=== PATIENT | female | born 1985 | race Caucasian/White ===

== ENCOUNTER → 2016-11-19 | Outpatient (CLI) | payer OTHER ==
[2016-11-19 12:32] LABS: Basophils % (A) 0 %; CH 31.8; CHCM 33.6; Eosinophils # (A) 0.1 k/uL (0-0.7); Eosinophils % (A) 1 %; HCT 41.3 % (34.0-46.0); HDW 2.21; HGB 13.6 gm/dL (11.4-16.0); Luc # (Auto) 0.06; Luc % (Auto) 2; Lymphocytes # (A) 1.6 k/uL (1.0-4.8); Lymphocytes % (A) 40 %; MCH 31.4 pg (25.0-35.0); MCV 95.1 fL (80.0-100.0); Mean Platelet Volume 7.4; Monocytes # (A) 0.3 k/uL (0-1.0); Monocytes % (A) 7 %; Neutrophils % (A) 50 %; RBC 4.34 m/uL (3.80-5.40); RDW 11.7 % (11.5-15.5); WBC (Perox) 4.14
[2016-11-19 13:01] LABS: ALT 41 U/L (9-52); AST 21 U/L (14-36); Alkaline Phosphatase 62 U/L (38-126); Anion Gap 10 mmol/L; Blood Urea Nitrogen 20 mg/dL (7-17); Calcium 9.3 mg/dL (8.4-10.2); Carbamazepine (Tegretol) 10.8 ug/mL; Carbon Dioxide 30 mmol/L (22-30); Chloride 103 mmol/L (98-107); Cholesterol 210 mg/dL (<200); Glucose 95 mg/dL (74-99); HDL Cholesterol 101 mg/dL (40-60); Non-African American GFR(MDRD) >60 (>60 ml/min/1.73 sqM); Potassium 4.2 mmol/L (3.5-5.1); Sodium 143 mmol/L (137-145); Total Bilirubin 0.4 mg/dL (0.2-1.3); Total Protein 7.4 g/dL (6.3-8.2); Triglycerides 87 mg/dL (<150)
== END | disposition home or self-care (01) ==
LOC: LABWHC1 11:42
PROVIDERS: ATTEND Psychiatry & Neurology Neurology
DX: G40.209 Localization-related (focal) (partial) symptomatic epilepsy and epileptic syndromes with complex partial seizures, not intractable, without status epilepticus (principal); R94.6 Abnormal results of thyroid function studies
CPT/HCPCS: 36415; 80053; 80061; 80156; 80164; 80175; 84439; 84443; 84481; 85025; 86376; 86800

== ENCOUNTER 2017-03-19 10:45 | Emergency (ER) | payer OTHER ==
[2017-03-19 11:07] VITALS: BP 113/71; PULSE 99; RESP 16
--- NOTE | 2017-03-19 11:34 | XR ---
EXAMINATION TYPE: XR nasal bone DATE OF EXAM: 03/19/2017 11:27 AM CLINICAL HISTORY: pain TECHNIQUE: 3 views of the nasal bones are submitted. FINDINGS: Three views of the nasal bones fail to demonstrate evidence for displaced or depressed nasal bone fra cture. Paranasal sinuses are well-aerated. IMPRESSION: No evidence for displaced or depressed nasal bone fracture. ICD 10 NO FRACTURE, INITIAL EVALUATION
[2017-03-19] MEDS ORDERED: TOPICAL SKIN ADHESIVE 1 EACH AMP TOPICAL ONE (12:07)
--- NOTE | 2017-03-19 12:15 | ED ---
Fall HPI - General Chief Complaint: Fall Stated Complaint: Fall-Face Injury Time Seen by Provider: 03/19/17 12:02 Source: patient, RN notes reviewed Mode of arrival: ambulatory Limitations: no limitations - History of Present Illness Initial Comments: 31-year-old female presents emergency Department chief complaint facial injury. 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 Patient tripped and fell hitting her face on the ground. She has some superficial lacerations to her nose, epistaxis. Patient denies any headache, dizziness or any loss conscious. Patient's tetanus is up-to-date within last 5 years. Denies any wrist pain, lower extremity injury. - Related Data Home Medications Medication Instructions Recorded Confirmed Atomoxetine HCl [Strattera] 80 mg PO QAM 11/16/14 12/02/14 Divalproex [Depakote] 250 mg PO BID 11/16/14 12/02/14 Folic Acid 1 mg PO DAILY 11/16/14 12/02/14 Naltrexone HCl [Revia] 50 mg PO BID 11/16/14 12/02/14 carBAMazepine CHEW [TEGretol Chew] 100 mg PO 11/16/14 12/02/14 carBAMazepine [TEGretol] 200 mg PO 1200 11/16/14 12/02/14 carBAMazepine [TEGretol] 200 mg PO AC-BRKFST 11/16/14 12/02/14 cloNIDine HCL [Catapres] 0.05 mg PO 1200 11/16/14 12/02/14 cloNIDine HCL [Catapres] 0.05 mg PO 11/16/14 12/02/14 fluvoxaMINE MALEATE [Luvox] 100 mg PO 11/16/14 12/02/14 fluvoxaMINE MALEATE [Luvox] 200 mg PO QAM 11/16/14 12/02/14 lamoTRIgine [LaMICtal] 25 mg PO 1200 11/16/14 12/02/14 lamoTRIgine [LaMICtal] 100 mg PO 11/16/14 12/02/14 lamoTRIgine [LaMICtal] 100 mg PO QAM 11/16/14 12/02/14 Previous Rx's Medication Instructions Recorded HYDROcodone/APAP 7.5-325MG [[place] 1 each PO Q4H PRN #60 tab 12/02/14 7.5] Allergies Allergy/AdvReac Type Severity Reaction Status Date / Time cephalexin monohydrate Allergy Rash/Hives Verified 03/19/17 11:06 [From Keflex] codeine Allergy SEVERE Verified 03/19/17 11:06 HEADACHE,NAUSEA iodine Allergy blisters Verified 03/19/17 11:06 Penicillins Allergy Rash/Hives Verified 03/19/17 11:06 Review of Systems ROS Statement: Those systems with pertinent positive or pertinent negative responses have been documented in the HPI. ROS Other: All systems not noted in ROS Statement are negative. 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,CURRENTLY UNDERGOING SLEEP STUDY TESTING, NO MENSES GREATER THAN 2 YRS POST UTERINE ABLATION History of Any Multi-Drug Resistant Organisms: None Reported Past Surgical History: Orthopedic Surgery, Uterine Ablation Additional Past Surgical History / Comment(s): DEBI FUNDOPLASTY, MULT ORTHOPEDIC SURGERIES,RT HAND AND WRIST SURGERY,PLATE RT WRIST, RT POST TIBIAL TENDON TRANSFER Past Anesthesia/Blood Transfusion Reactions: No Reported Reaction Past Psychological History: Anxiety, Depression Additional Psychological History / Comment(s): OCD-PICKS AT SKIN Smoking Status: Never smoker Past Alcohol Use History: None Reported Past Drug Use History: None Reported - Past Family History Mother Additional Family Medical History / Comment(s): BASAL CELL SKIN CA General Exam Limitations: no limitations General appearance: alert, in no apparent distress Head exam: Present: atraumatic, normocephalic, normal inspection Eye exam: Present: normal appearance, PERRL, EOMI. Absent: scleral icterus, conjunctival injection, periorbital swelling ENT exam: Present: normal oropharynx, mucous membranes moist, TM's normal bilaterally, normal external ear exam, other (Dry blood noted in the nares, superficial laceration 3 - 0.5 cm on the nose). Absent: normal exam Neck exam: Present: normal inspection, full ROM. Absent: tenderness, meningismus, lymphadenopathy Respiratory exam: Present: normal lung sounds bilaterally. Absent: respiratory distress, wheezes, rales, rhonchi, stridor Cardiovascular Exam: Present: regular rate, normal rhythm, normal heart sounds. Absent: systolic murmur, diastolic murmur, rubs, gallop, clicks Extremities exam: Present: normal inspection, full ROM, normal capillary refill. Absent: tenderness, pedal edema, joint swelling, calf tenderness Neurological exam: Present: alert, oriented X3, CN II-XII intact, reflexes normal. Absent: motor sensory deficit Course Vital Signs 03/19/17 11:01 Pulse Rate 99 Respiratory 16 Rate Blood Pressure 113/71 O2 Sat by Pulse 100 Oximetry Procedures - Laceration Laceration #1 Consent Obtained: verbal consent Indication: laceration Site: other (Nose) Size (cm): 0 (0.5) Description: flap Depth: simple, single layer Pre-repair: wound explored, irrigated extensively, deep structures intact Size of Sutures: other Technique: other (Dermabond) Medical Decision Making - Medical Decision Making 31-year-old female presented for fall facial injury. Patient's wounds were cleaned, closed with Dermabond. Patient had no severe head injury x-ray of the nasal bone show no acute fracture. Patient be discharged at this time return parameters were discussed. Disposition Clinical Impression: Fall, Epistaxis, Laceration of nose Disposition: HOME SELF-CARE Condition: Stable Instructions: Nasal Contusion (ED), Skin Adhesive Care (ED) Additional Instructions: Please return to the Emergency Department if symptoms worsen or any other concerns. Referrals: Pietro Sparks III, MD [Primary Care Provider] - 1-2 days Time of Disposition: 12:14
== END 2017-03-19 12:29 | disposition home or self-care (01) ==
LOC: EC 10:45
DX: S01.21XA Laceration without foreign body of nose, initial encounter (principal); R04.0 Epistaxis; G40.909 Epilepsy, unspecified, not intractable, without status epilepticus; F32.9 Major depressive disorder, single episode, unspecified; Z79.899 Other long term (current) drug therapy; Z88.0 Allergy status to penicillin; Z88.1 Allergy status to other antibiotic agents; Z88.5 Allergy status to narcotic agent; Z91.048 Other nonmedicinal substance allergy status; W01.0XXA Fall on same level from slipping, tripping and stumbling without subsequent striking against object, initial encounter; Y92.480 Sidewalk as the place of occurrence of the external cause; Y93.01 Activity, walking, marching and hiking
CPT/HCPCS: 12011; 70160; 99284

== ENCOUNTER → 2019-07-08 | Outpatient (CLI) | payer OTHER ==
--- NOTE | 2019-07-08 15:45 | US ---
EXAMINATION TYPE: US carotid duplex BILAT DATE OF EXAM: 07/08/2019 COMPARISON: NONE CLINICAL HISTORY: R42 DIZZINESS. EXAM MEASUREMENTS: RIGHT: Peak Systolic Velocity (PSV) cm/sec ----- Right CCA: 99.2 ----- Right ICA: 96.8 ----- Right ECA: 99.2 ICA/CCA ratio: 1.0 RIGHT: End Diastole cm/sec ----- Right CCA: 35.6 ----- Right ICA: 35.4 ----- Right ECA: 35.4 LEFT: Peak Systolic Velocity (PSV) cm/sec ----- Left CCA: 113.5 ----- Left ICA: 81.7 ----- Left ECA: 124.5 ICA/CCA ratio: 0.7 LEFT: End Diastole cm/sec ----- Left CCA: 33.2 ----- Left ICA: 81.7 ----- Left ECA: 124.5 VERTEBRALS (direction of flow): Right Vertebral: Antegrade Left Vertebral: Antegrade Rhythm: Normal Minimal plaque, no significant velocity elevations. IMPRESSION: Mild degree of grayscale atheromatous plaquing with no sonographically evident hemodynam ically significant stenosis within either visualized carotid arterial system. Criteria for Assigning % of Stenosis / Diameter reduction (Estimation based on the indirect measurements of the internal carotid artery velocities (ICA PSV). 1. Normal (no stenosis)=ICA PSV < 125 cm/s: ratio < 2.0: ICA EDV<40 cm/s. 2. Less than 50% stenosis=ICA PSV < 125 cm/s: ratio < 2.0: ICA EDV<40 cm/s. 3. 50 to 69% stenosis=ICA PSV of 125 to 230 cm/s: ration 2.0 ? 4.0: ICA EDV 40-100 cm/s. 4. Greater than 70% stenosis to near occlusion= ICA PSV > 230 cm/s: ratio > 4.0: ICA EDV > 100 cm/s. 5. Near occlusion= ICA PSV velocities may be low or undetectable: variable ratio and ICA EDV. 6. Total occlusion=unable to detect flow.
== END | disposition home or self-care (01) ==
LOC: RADUSWWP 14:54 → EEVIPCON 15:00
PROVIDERS: ATTEND Psychiatry & Neurology Neurology
DX: I65.29 Occlusion and stenosis of unspecified carotid artery (principal)
CPT/HCPCS: 93880

== ENCOUNTER → 2019-08-19 | Outpatient (CLI) | payer OTHER ==
--- NOTE | 2019-08-20 09:08 | MM ---
Reason for exam: screening (asymptomatic). Baseline mammogram. History: Patient is nulliparous. Took hormonal contraceptives beginning at age 15. Physical Findings: Nurse Summary: 0.5-1cm nodule in the right breast at 10 o'clock and a 0.5-1cm nodule in the left breast at 2 o'clock (nurse kp). MG 3D Diag Mammo W/Cad WARD Bilateral CC and MLO view(s) were taken. The breast tissue is extremely dense which could obscure a lesion on mammography. There are benign appearing round calcifications bilaterally. There is no discrete abnormality. These results were verbally communicated with the patient and result sheet given to the patient on 08/19/19. ASSESSMENT: Incomplete: need additional imaging evaluation, BI-RAD 0 RECOMMENDATION: Ultrasound of both breasts. (palpables)
--- NOTE | 2019-08-20 09:10 | USB ---
Reason for exam: additional evaluation requested from abnormal screening. History: Patient is nulliparous. Took hormonal contraceptives beginning at age 15. Physical Findings: Breast exam preformed at baseline screening. US Breast Limited BILAT Left limited breast ultrasound including focal area of concern, retroareolar and axilla demonstrates no cystic or solid lesion seen. Right limited breast ultrasound including focal area of concern, retroareolar and axilla demonstrates a 9 x 3 x 7mm oval, cystic lesion at 9 o'clock, elongated cyst, a 14 x 8 x 12mm lobular, cystic lesion at 10 o'clock BB, lobular cyst and a 7 x 3 x 7mm oval, cystic lesion at 12 o'clock, elongated cyst. These results were verbally communicated with the patient and result sheet given to the patient on 08/19/19. ASSESSMENT: Benign, BI-RAD 2 RECOMMENDATION: Routine screening mammogram of both breasts at age 39. Manage on a clinical basis with regard to bilateral palpables.
== END | disposition home or self-care (01) ==
LOC: RADMAMWWP 13:25
PROVIDERS: ATTEND Family Medicine
DX: R92.8 Other abnormal and inconclusive findings on diagnostic imaging of breast (principal)
CPT/HCPCS: 77066; 76642; G0279; 77062

== ENCOUNTER 2019-09-29 15:09 | Emergency (ER) | payer OTHER ==
[2019-09-29 15:13] VITALS: TEMP 98.2
[2019-09-29] MEDS ORDERED: SODIUM CHLORIDE 0.9% 1,000 ML IV STA (15:47)
[2019-09-29] MEDS ORDERED: ACETAMINOPHEN TAB 500 MG TAB PO STA (15:47)
[2019-09-29] MEDS ORDERED: METOCLOPRAMIDE 5 MG/ML 2 ML VIAL IVP STA (15:48)
[2019-09-29] MEDS ORDERED: diphenhydrAMINE 50 MG/ML 1 ML VIAL IVP STA (15:48)
[2019-09-29] MEDS ORDERED: ONDANSETRON 4 MG/2 ML VIAL IVP STA (15:49)
--- NOTE | 2019-09-29 16:14 | ED ---
Headache HPI - General Chief Complaint: Headache Stated Complaint: Migraine, off balance Time Seen by Provider: 09/29/19 15:32 Source: RN notes reviewed, old records reviewed Mode of arrival: wheelchair Limitations: no limitations - History of Present Illness Initial Comments: Patient is a 34-year-old female with 3 days of headache. She reports it seems to be a cluster like migraine where it is a sharp wave of pain and then will diminish. She reports his been recurrent for the past 3 days. Patient's mother reports that she's also been having some word disassociation and trouble with recall and conversations. 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 Patient has been having history of headaches for the past few months, and have scheduled follow up with headache clinic soon. - Related Data Home Medications Medication Instructions Recorded Confirmed Atomoxetine HCl [Strattera] 80 mg PO QAM 11/16/14 12/02/14 Divalproex [Depakote] 250 mg PO BID 11/16/14 12/02/14 Folic Acid 1 mg PO DAILY 11/16/14 12/02/14 Naltrexone HCl [Revia] 50 mg PO BID 11/16/14 12/02/14 carBAMazepine CHEW [TEGretol Chew] 100 mg PO HS 11/16/14 12/02/14 carBAMazepine [TEGretol] 200 mg PO 1200 11/16/14 12/02/14 carBAMazepine [TEGretol] 200 mg PO AC-BRKFST 11/16/14 12/02/14 cloNIDine HCL [Catapres] 0.05 mg PO 1200 11/16/14 12/02/14 cloNIDine HCL [Catapres] 0.05 mg PO 11/16/14 12/02/14 fluvoxaMINE MALEATE [Luvox] 100 mg PO 11/16/14 12/02/14 fluvoxaMINE MALEATE [Luvox] 200 mg PO QAM 11/16/14 12/02/14 lamoTRIgine [LaMICtal] 25 mg PO 1200 11/16/14 12/02/14 lamoTRIgine [LaMICtal] 100 mg PO HS 11/16/14 12/02/14 lamoTRIgine [LaMICtal] 100 mg PO QAM 11/16/14 12/02/14 Previous Rx's Medication Instructions Recorded HYDROcodone/APAP 7.5-325MG [[place] 1 each PO Q4H PRN #60 tab 12/02/14 7.5] Metoclopramide [Reglan] 10 mg PO TID #12 tab 09/29/19 Ketorolac [Toradol] 10 mg PO Q6HR #10 tab 09/30/19 Allergies Allergy/AdvReac Type Severity Reaction Status Date / Time cephalexin monohydrate Allergy Rash/Hives Verified 09/29/19 15:13 [From Keflex] codeine Allergy SEVERE Verified 09/29/19 15:13 HEADACHE,NAUSEA iodine Allergy blisters Verified 09/29/19 15:13 Penicillins Allergy Rash/Hives Verified 09/29/19 15:13 Review of Systems ROS Statement: Those systems with pertinent positive or pertinent negative responses have been documented in the HPI. ROS Other: All systems not noted in ROS Statement are negative. 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,CURRENTLY UNDERGOING SLEEP STUDY TESTING, NO MENSES GREATER THAN 2 YRS POST UTERINE ABLATION History of Any Multi-Drug Resistant Organisms: None Reported Past Surgical History: Orthopedic Surgery, Uterine Ablation Additional Past Surgical History / Comment(s): DEBI FUNDOPLASTY, MULT ORTHOPEDIC SURGERIES,RT HAND AND WRIST SURGERY,PLATE RT WRIST, RT POST TIBIAL TENDON TRANSFER Past Anesthesia/Blood Transfusion Reactions: No Reported Reaction Past Psychological History: Anxiety, Depression Smoking Status: Never smoker Past Alcohol Use History: None Reported Past Drug Use History: None Reported - Past Family History Mother Additional Family Medical History / Comment(s): BASAL CELL SKIN CA General Exam - General Exam Comments Initial Comments: Pleasant 34 year old female, no distress. Limitations: no limitations General appearance: alert, in no apparent distress Head exam: Present: atraumatic, normocephalic, normal inspection Eye exam: Present: normal appearance, PERRL, EOMI. Absent: scleral icterus, conjunctival injection, periorbital swelling ENT exam: Present: normal exam, mucous membranes moist Neck exam: Present: normal inspection. Absent: tenderness, meningismus, lymphadenopathy Respiratory exam: Present: normal lung sounds bilaterally. Absent: respiratory distress, wheezes, rales, rhonchi, stridor Cardiovascular Exam: Present: regular rate, normal rhythm, normal heart sounds. Absent: systolic murmur, diastolic murmur, rubs, gallop, clicks GI/Abdominal exam: Present: soft, normal bowel sounds. Absent: distended, tenderness, guarding, rebound, rigid Extremities exam: Present: normal inspection, full ROM, normal capillary refill. Absent: tenderness, pedal edema, joint swelling, calf tenderness Back exam: Present: normal inspection Neurological exam: Present: alert, oriented X3, CN II-XII intact, other (hemiparalysis over R hand and leg. This is chronic, no change. Contracture in R hand. ) Expanded Patient oriented to: Present: person, place, time Speech: Present: fluid speech Cranial nerves: EOM's Intact: Normal Cerebellar function: Finger to Nose: Normal Upper motor neuron: Pronator Drift: Normal, Babinski Sign: Normal Sensory exam: Upper Extremity Light Touch: Normal, Lower Extremity Light Touch: Normal Motor strength exam: RUE: 5, LUE: 5, RLE: 5, LLE: 5 Eye Response: (4) open spontaneously Motor Response: (6) obeys commands Verbal Response: (5) oriented [place] Total: 15 Psychiatric exam: Present: normal affect, normal mood Course Vital Signs 09/29/19 09/29/19 09/29/19 15:10 18:09 18:48 Temperature 98.2 F Pulse Rate 89 74 72 Respiratory 20 18 18 Rate Blood Pressure 107/65 108/62 110/70 O2 Sat by Pulse 100 98 98 Oximetry Medical Decision Making - Medical Decision Making 34 year old female with 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 Patient presents with migraine like headache for the past 3 days. She had her neurogist sendo rene previous MRI. At this time patient has no neurological deficits. Mother and guardian reported some times with expressive aphasia, but patient has no signs of aphasia or other symptoms at this time. She has no fever. VSS. CT completed and shows no acute process, and large porencephalac cyst. This is stable according to family from prior studies and no enlargement. She was given migraine cocktail and had significant relief. She was offered admission for history of aphasia, but mother and guardian states that she prefers to follow up with headache clinic as scheduled and to follow up her outpatient neuroligist. Discussed return parameters. Will DC with nausea medication. - Lab Data Result diagrams: 09/29/19 15:35 09/29/19 17:43 Lab Results 09/29/19 09/29/19 09/29/19 Range/Units 15:35 15:35 15:35 WBC 4.7 (3.8-10.6) k/uL RBC 4.07 (3.80-5.40) m/uL Hgb 13.1 (11.4-16.0) gm/dL Hct 38.6 (34.0-46.0) % MCV 94.9 (80.0-100.0) fL MCH 32.1 (25.0-35.0) pg MCHC 33.9 (31.0-37.0) g/dL RDW 11.5 (11.5-15.5) % Plt Count 230 (150-450) k/uL Neutrophils % 49 % Lymphocytes % 42 % Monocytes % 5 % Eosinophils % 1 % Basophils % 1 % Neutrophils # 2.3 (1.3-7.7) k/uL Lymphocytes # 2.0 (1.0-4.8) k/uL Monocytes # 0.2 (0-1.0) k/uL Eosinophils # 0.1 (0-0.7) k/uL Basophils # 0.0 (0-0.2) k/uL PT 10.6 (9.0-12.0) sec INR 1.0 (<1.2) APTT 22.6 (22.0-30.0) sec Sodium (137-145) mmol/L Potassium (3.5-5.1) mmol/L Chloride (98-107) mmol/L Carbon Dioxide (22-30) mmol/L Anion Gap mmol/L BUN (7-17) mg/dL Creatinine (0.52-1.04) mg/dL Est GFR (CKD-EPI)AfAm (>60 ml/min/1.73 sqM) Est GFR (CKD-EPI)NonAf (>60 ml/min/1.73 sqM) Glucose (74-99) mg/dL Calcium (8.4-10.2) mg/dL Total Bilirubin (0.2-1.3) mg/dL AST (14-36) U/L ALT (9-52) U/L Alkaline Phosphatase (38-126) U/L Troponin I <0.012 (0.000-0.034) ng/mL Total Protein (6.3-8.2) g/dL Albumin (3.5-5.0) g/dL 09/29/19 Range/Units 17:43 WBC (3.8-10.6) k/uL RBC (3.80-5.40) m/uL Hgb (11.4-16.0) gm/dL Hct (34.0-46.0) % MCV (80.0-100.0) fL MCH (25.0-35.0) pg MCHC (31.0-37.0) g/dL RDW (11.5-15.5) % Plt Count (150-450) k/uL Neutrophils % % Lymphocytes % % Monocytes % % Eosinophils % % Basophils % % Neutrophils # (1.3-7.7) k/uL Lymphocytes # (1.0-4.8) k/uL Monocytes # (0-1.0) k/uL Eosinophils # (0-0.7) k/uL Basophils # (0-0.2) k/uL PT (9.0-12.0) sec INR (<1.2) APTT (22.0-30.0) sec Sodium 141 (137-145) mmol/L Potassium 4.2 (3.5-5.1) mmol/L Chloride 108 H (98-107) mmol/L Carbon Dioxide 25 (22-30) mmol/L Anion Gap 8 mmol/L BUN 14 (7-17) mg/dL Creatinine 0.46 L (0.52-1.04) mg/dL Est GFR (CKD-EPI)AfAm >90 (>60 ml/min/1.73 sqM) Est GFR (CKD-EPI)NonAf >90 (>60 ml/min/1.73 sqM) Glucose 72 L (74-99) mg/dL Calcium 8.4 (8.4-10.2) mg/dL Total Bilirubin 0.4 (0.2-1.3) mg/dL AST 17 (14-36) U/L ALT 18 (9-52) U/L Alkaline Phosphatase 44 (38-126) U/L Troponin I (0.000-0.034) ng/mL Total Protein 6.7 (6.3-8.2) g/dL Albumin 4.0 (3.5-5.0) g/dL - Radiology Data Radiology results: report reviewed The left hemicranium is smaller than the right suggestion of underlying chronic changes with left cerebral volume loss, asymmetric ex cvacuo enlargement of left lateral ventricle and frontotemporal encephalomalacia. Possible underlying 6.4 by 3.5 by 3.4 cm arachnoid vs encephaloclastic cyst. Further clinical correlation recommended. This can be compared to outside study to ensure stability. No acute intracranial hemorrhage, herniation or definite acute abnormality. CXR is negative for acute process. Disposition Clinical Impression: Migraine Disposition: HOME SELF-CARE Condition: Good Instructions (If sedation given, give patient instructions): Acute Headache (ED ) Additional Instructions: Recommended close follow-up with your primary care doctor and neurologist. Return to the emergency department if any alarming signs or symptoms occur. Prescriptions: Metoclopramide [Reglan] 10 mg PO TID #12 tab Ketorolac [Toradol] 10 mg PO Q6HR #10 tab Is patient prescribed a controlled substance at d/c from ED?: No Referrals: Pietro Sparks III, MD [Primary Care Provider] - 1-2 days Time of Disposition: 18:39
[2019-09-29 16:22] LABS: Basophils % (A) 1 %; Eosinophils # (A) 0.1 k/uL (0-0.7); Eosinophils % (A) 1 %; HCT 38.6 % (34.0-46.0); HGB 13.1 gm/dL (11.4-16.0); Lymphocytes % (A) 42 %; MCH 32.1 pg (25.0-35.0); MCHC 33.9 g/dL (31.0-37.0); MCV 94.9 fL (80.0-100.0); Mean Platelet Volume 6.8; Monocytes # (A) 0.2 k/uL (0-1.0); Monocytes % (A) 5 %; Neutrophils # (A) 2.3 k/uL (1.3-7.7); Neutrophils % (A) 49 %; Platelet Count 230 k/uL (150-450); RBC 4.07 m/uL (3.80-5.40); RDW 11.5 % (11.5-15.5); WBC 4.7 k/uL (3.8-10.6)
[2019-09-29 16:26] LABS: Partial Thromboplastin Time 22.6 sec (22.0-30.0); Prothrombin Time 10.6 sec (9.0-12.0)
--- NOTE | 2019-09-29 16:33 | CT ---
EXAMINATION TYPE: CT brain wo con DATE OF EXAM: 09/29/2019 COMPARISON: None HISTORY: 34-year-old female migraine headache with history of prior migraines and known left side cys t TECHNIQUE: Examination was done in axial plane without intravenous contrast. Coronal and sagittal r econstructions performed. CT DLP: 1019.4 mGycm Automated exposure control for dose reduction was used. FINDINGS: There is chronic appearing volume velocity in the left cerebral hemisphere with a asymmetric dilatati on of the left lateral ventricle and encephalomalacia along the left frontotemporal region. Suspect c hronic changes. There may be an underlying 6.4 x 3.5 x 3.4 cm arachnoid versus encephaloclastic porencephalic cyst. This appearance can be corre lated with any available outside prior to ensure stability. The right hemicranium is asymmetrically larger than the left suggesting chronic etiology. No evidence for acute intracranial hemorrhage, acute ischemic change, herniation, or extra-axial flui d collection. Paranasal sinuses and mastoid air cells well pneumatized. IMPRESSION: 1. The left hemicranium is smaller than the right suggesting underlying chronic changes with left cer ebral volume loss, asymmetric ex vacuo enlargement of the left lateral ventricle, and frontotemporal encephalomalacia. Possible underlying 6.4 x 3.5 x 3.4 cm arachnoid cyst versus encephaloclastic poren cephalic cyst. Further clinical correlation recommended. This appearance can be compared to patient's outside prior to ensure stability. 2. No acute intracranial hemorrhage, herniation, or other definite acute intracranial abnormality.
[2019-09-29] MEDS ORDERED: KETOROLAC 30 MG/ML 1 ML VIAL IVP STA (17:39)
[2019-09-29 18:04] LABS: ALT 18 U/L (9-52); AST 17 U/L (14-36); African American GFR (CKD) >90 (>60 ml/min/1.73 sqM); Alkaline Phosphatase 44 U/L (38-126); Anion Gap 8 mmol/L; Blood Urea Nitrogen 14 mg/dL (7-17); Calcium 8.4 mg/dL (8.4-10.2); Carbon Dioxide 25 mmol/L (22-30); Chloride 108 mmol/L (98-107); Glucose 72 mg/dL (74-99); Non-African American GFR(CKD) >90 (>60 ml/min/1.73 sqM); Potassium 4.2 mmol/L (3.5-5.1); Sodium 141 mmol/L (137-145); Total Bilirubin 0.4 mg/dL (0.2-1.3); Total Protein 6.7 g/dL (6.3-8.2)
--- NOTE | 2019-09-29 18:07 | XR ---
EXAMINATION TYPE: XR chest 2V DATE OF EXAM: 09/29/2019 COMPARISON: NONE HISTORY: Headache and dizziness TECHNIQUE: Frontal and lateral views of the chest are obtained. FINDINGS: Heart is normal. Lungs are clear of infiltrate. There is no pleural effusion. There are no hilar masses. Bony thorax is intact. IMPRESSION: No active cardiopulmonary disease. Normal heart.
[2019-09-29 18:10] VITALS: RESP 18
[2019-09-29 18:49] VITALS: BP 110/70; PULSE 72
== END 2019-09-29 18:48 | disposition home or self-care (01) ==
LOC: EC 15:09
DX: G43.909 Migraine, unspecified, not intractable, without status migrainosus (principal); G40.909 Epilepsy, unspecified, not intractable, without status epilepticus; I69.351 Hemiplegia and hemiparesis following cerebral infarction affecting right dominant side; F41.9 Anxiety disorder, unspecified; F32.9 Major depressive disorder, single episode, unspecified; Z79.899 Other long term (current) drug therapy; Z88.1 Allergy status to other antibiotic agents; Z88.5 Allergy status to narcotic agent; Z91.041 Radiographic dye allergy status; Z88.0 Allergy status to penicillin
CPT/HCPCS: 36415; 93005; 80053; 84484; 85025; 85610; 85730; 71046; 70450; 96374; 96375 ×2; 96361; 99285; J1200; J2765; J1885

== ENCOUNTER → 2020-12-19 | Outpatient (CLI) | payer OTHER ==
[2020-12-19 08:56] VITALS: BP 108/70; PULSE 107; RESP 18; TEMP 99.3
--- NOTE | 2020-12-19 09:24 | P.PAINCN ---
History of Present Illness - Reason for Consult Consult date: 12/19/20 - History of Present Illness This is an initial consultation visit for this 35 years old female with a chronic history of severe neck pain and headache, started more than 10 years ago and intensity of the pain and headache increases with any neck movement, and any activity, intensity of the neck pain and headaches increased over time and currently is disabling and is not controlled with the current medications, she tried different kind of pain medication without any significant relief she tried Botox injection, chiropractors, physical therapy, without any significant improvement, she had occipital nerve block and some degree of benefit, patient diagnosed with congenital cerebral palsy and 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 Past Medical History Past Medical History: Coronary Artery Disease (CAD), CVA/TIA, Eye Disorder, Memory Impairment, Seizure Disorder, Sleep Apnea/CPAP/BIPAP Additional Past Medical History / Comment(s): HX INFARCT LT CEREBRAL ARTERY BEFORE ,RT SIDE PARTIAL PARALYSIS,MILD SPASTIC CEREBRAL [id number] UNSTEADY AT TIME-SPEECH CLEAR, TENSION MIGRAINES, LAST SEIZURE APPROX 5 YRS AGO,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,CURRENTLY UNDERGOING SLEEP STUDY TESTING, NO MENSES POST UTERINE ABLATION History of Any Multi-Drug Resistant Organisms: None Reported Past Surgical History: Orthopedic Surgery, Uterine Ablation Additional Past Surgical History / Comment(s): DEBI FUNDOPLASTY, MULT ORTH OPEDIC SURGERIES,RT HAND AND WRIST SURGERY,PLATE RT WRIST, RT POST TIBIAL TENDON TRANSFER Past Anesthesia/Blood Transfusion Reactions: No Reported Reaction Smoking Status: Never smoker - Past Family History Mother Additional Family Medical History / Comment(s): BASAL CELL SKIN CA Medications and Allergies Home Medications Medication Instructions Recorded Confirmed Type Atomoxetine HCl [Strattera] 80 mg PO QAM 11/16/14 12/19/20 History Divalproex [Depakote] 250 mg PO BID 11/16/14 12/19/20 History Folic Acid 1 mg PO DAILY 11/16/14 12/19/20 History Naltrexone HCl [Revia] 50 mg PO BID 11/16/14 12/19/20 History carBAMazepine CHEW [TEGretol Chew] 100 mg PO HS 11/16/14 12/19/20 History carBAMazepine [TEGretol] 200 mg PO 1200 11/16/14 12/19/20 History carBAMazepine [TEGretol] 200 mg PO AC-BRKFST 11/16/14 12/19/20 History cloNIDine HCL [Catapres] 0.05 mg PO 1200 11/16/14 12/19/20 History cloNIDine HCL [Catapres] 0.05 mg PO HS 11/16/14 12/19/20 History fluvoxaMINE MALEATE [Luvox] 100 mg PO HS 11/16/14 12/19/20 History fluvoxaMINE MALEATE [Luvox] 200 mg PO QAM 11/16/14 12/19/20 History lamoTRIgine [LaMICtal] 25 mg PO 1200 11/16/14 12/19/20 History lamoTRIgine [LaMICtal] 100 mg PO HS 11/16/14 12/19/20 History lamoTRIgine [LaMICtal] 100 mg PO QAM 11/16/14 12/19/20 History HYDROcodone/APAP 7.5-325MG [[place] 1 each PO Q4H PRN #60 tab 12/02/14 12/19/20 Rx 7.5] Metoclopramide [Reglan] 10 mg PO TID #12 tab 09/29/19 12/19/20 Rx Ketorolac [Toradol] 10 mg PO Q6HR #10 tab 09/30/19 12/19/20 Rx Galcanezumab-Gnlm [Emgality 300 mg SQ QMONTHLY 12/19/20 12/19/20 History Syringe] Allergies Allergy/AdvReac Type Severity Reaction Status Date / Time cephalexin monohydrate Allergy Rash/Hives Verified 09/29/19 15:13 [From Keflex] codeine Allergy SEVERE Verified 09/29/19 15:13 HEADACHE,NAUSEA iodine Allergy blisters Verified 09/29/19 15:13 Penicillins Allergy Rash/Hives Verified 09/29/19 15:13 Physical Exam Vitals: Vital Signs Temp Pulse Resp BP Pulse Ox 12/19/20 08:49 99.3 F 107 H 18 108/70 99 Intake and Output 12/18/20 12/19/20 12/19/20 22:59 06:59 14:59 Other: Weight 56.699 kg Physical Examinations : -Constitutiona : Cooperative , not in acute distress . -HEENT : nech : supple , no Lymphadenopathy , normal thyroid size . : eyes : no ptosis , no icterus, no photophobia . - neurologic : Cranial nerve II to XII intact , no focal neurological deffecit . -psychatric : alert , oriented X 3 , appropriate affect , intact judgment and insight . -Lymphatic : no Lymphadenopathy . - musculoskeltal : Cervical Spine motor stregnth in the deltoid and biceps, decreased right side , normal Left side motor stregnth biceps and the wrist extensors decreased right side ,normal left side . motor stregnth in the triceps muscle . Decreased Right side , normal Left side cervical facet loading test: Positive Bilaterally Tenderness over the occipital nerve bilaterally . 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 2-cervicogenic headache. 3-occipital neuralgia. We will order MRI of the cervical spine, to confirm the diagnosis Patient will be good candidate to have diagnostic medial branch block cervical area at C2, C3 ,C4 x2 and possible RFA Time with Patient: Greater than 30 PQRS Measure Charge Sheet PQRS Narrative: Smoking Status Never smoker Blood Pressure 108/70 Pain Intensity [Occipital] 7 Scale Used Numeric (1 - 10) Hx Alcohol Use (MH) No Home Medications: Ambulatory Orders Atomoxetine HCl [Strattera] 80 mg PO QAM 11/16/14 Divalproex [Depakote] 250 mg PO BID 11/16/14 Folic Acid 1 mg PO DAILY 11/16/14 Naltrexone HCl [Revia] 50 mg PO BID 11/16/14 carBAMazepine CHEW [TEGretol Chew] 100 mg PO HS 11/16/14 carBAMazepine [TEGretol] 200 mg PO 1200 11/16/14 carBAMazepine [TEGretol] 200 mg PO AC-BRKFST 11/16/14 cloNIDine HCL [Catapres] 0.05 mg PO 1200 11/16/14 cloNIDine HCL [Catapres] 0.05 mg PO HS 11/16/14 fluvoxaMINE MALEATE [Luvox] 100 mg PO HS 11/16/14 fluvoxaMINE MALEATE [Luvox] 200 mg PO QAM 11/16/14 lamoTRIgine [LaMICtal] 25 mg PO 1200 11/16/14 lamoTRIgine [LaMICtal] 100 mg PO HS 11/16/14 lamoTRIgine [LaMICtal] 100 mg PO QAM 11/16/14 HYDROcodone/APAP 7.5-325MG [[place] 7.5] 1 each PO Q4H PRN #60 tab 12/02/14 Metoclopramide [Reglan] 10 mg PO TID #12 tab 09/29/19 Ketorolac [Toradol] 10 mg PO Q6HR #10 tab 09/30/19 Galcanezumab-Gnlm [Emgality Syringe] 300 mg SQ QMONTHLY 12/19/20
== END | disposition home or self-care (01) ==
LOC: PNWHC3 08:36
PROVIDERS: ATTEND Specialist
DX: M47.812 Spondylosis without myelopathy or radiculopathy, cervical region (principal); M54.81 Occipital neuralgia; R51.9 Headache, unspecified; Z79.899 Other long term (current) drug therapy; Z79.891 Long term (current) use of opiate analgesic; Z88.0 Allergy status to penicillin; Z88.5 Allergy status to narcotic agent; Z88.8 Allergy status to other drugs, medicaments and biological substances; Z91.041 Radiographic dye allergy status
CPT/HCPCS: 99211

== ENCOUNTER → 2020-12-26 | Outpatient (CLI) | payer OTHER ==
--- NOTE | 2020-12-26 12:19 | MR ---
EXAMINATION TYPE: MR brain wo/w con DATE OF EXAM: 12/26/2020 COMPARISON: CT 09/29/2019 HISTORY: Dizziness, Hx of infarct before TECHNIQUE: Multiplanar, multisequence images of the brain and brainstem is performed without and with IV contras t, utilizing 6 mL intravenous Gadavist . FINDINGS: Calvarial deformity is present as on prior CT with focal thickening at the site of patient' s underlying brain abnormality, there is underlying encephalomalacia with ex vacuo phenomenon of the left lateral ventricle. There is some artifact present on the exam, cystic changes present involving the left frontoparietal, anterior left temporal lobes. Diminutive vasculature is present in this dist ribution along the expected course of the middle cerebral artery branches. Diffusion weighted images demonstrate no evidence of a recent infarct or other diffusion abnormality. Some probable reactive ch [place]ina present in the brain at the site of patient's chronic brain abnormality. Midline structures demonstrate diminished size of the corpus callosum, pituitary, cervical medullary junction, cerebellopontine angles are within normal limits, there is volume loss of the left cerebral peduncle as compared to the right. The craniocervical junction appears within normal limits. Post contrast images demonstrate no abnormal enhancement. The dural venous sinuses appear patent. The visu alized sinuses are clear and the globes are intact. IMPRESSION: Findings not changed compared to prior CT, essentially stable findings
== END | disposition home or self-care (01) ==
LOC: RADMRIMAIN 09:30
PROVIDERS: ATTEND Psychiatry & Neurology Neurology
DX: G40.209 Localization-related (focal) (partial) symptomatic epilepsy and epileptic syndromes with complex partial seizures, not intractable, without status epilepticus (principal); G93.0 Cerebral cysts
CPT/HCPCS: 70553; A9585

== ENCOUNTER → 2021-01-03 | Outpatient (CLI) | payer OTHER ==
--- NOTE | 2021-01-04 08:27 | MR ---
EXAMINATION TYPE: MR cervical spine wo con DATE OF EXAM: 01/03/2021 COMPARISON: None HISTORY: Neck pain and headaches for whole life CONTRAST: Performed utilizing 0 mL intravenous Gadavist gadolinium contrast. TECHNIQUE: Multiplanar multiecho imaging on a 3.0 [place] magnet is performed through the cervical spin e. FINDINGS: The craniovertebral junction is normal. Vertebral body alignment has some exaggeration of the cervical lordosis. Posterior to the C7 level there is some increased signal on T2-weighted sequ ences within the substance of the spinal cord. Small syrinx may be present. Additional workup with co ntrast MRI is recommended. Proton density sagittal imaging no suspicious white matter plaques are paulina ntified. C7-T1: No focal disc herniation or significant disc bulge is evident. No spinal canal stenosis or n eural foraminal stenosis is present. C6-7: No focal disc herniation or significant disc bulge is evident. No spinal canal stenosis is pre sent. Mild uncovertebral joint hypertrophy is present with minimal neural foraminal stenosis present bilaterally. C5-6: No focal disc herniation or significant disc bulge is evident. No spinal canal stenosis is pre sent. There is some mild to moderate right foraminal narrowing from uncovertebral hypertrophy. C4-5: No focal disc herniation or significant disc bulge is evident. No spinal canal stenosis is pre sent. There is some mild right foraminal narrowing from uncovertebral hypertrophy. C3-4: No focal disc herniation or significant disc bulge is evident. No spinal canal stenosis or flori ral foraminal stenosis is present. C2-3: No focal disc herniation or significant disc bulge is evident. No spinal canal stenosis or flori ral foraminal stenosis is present. IMPRESSIONS: 1. Small syrinx posterior to the C7 vertebral level. Additional workup with contrast MRI is recommend ed. 2. Mild uncovertebral joint hypertrophy contributing to foraminal narrowing predominantly on the righ t discussed above.
== END ==
LOC: RADMRIMAIN 16:24
PROVIDERS: ATTEND Specialist
DX: G95.0 Syringomyelia and syringobulbia (principal); M99.71 Connective tissue and disc stenosis of intervertebral foramina of cervical region
CPT/HCPCS: 72141

== ENCOUNTER 2021-01-13 12:05 | Day surgery (SDC) | payer OTHER ==
[2021-01-11 12:23] VITALS: BMI 21.4
[~2021-01-13 12:05] MED LIST: LACTATED RINGERS 1,000 ML IV SCH
[2021-01-13 12:49] VITALS: RESP 16; TEMP 98.5
[2021-01-13] MEDS ORDERED: LIDOCAINE 1% (10MG/ML) FOR IV START INTRADERMA ONE (12:55)
[2021-01-13] MEDS ORDERED: MIDAZOLAM 2 MG/2 ML VIAL ONE (13:16)
[2021-01-13] MEDS ORDERED: ROPIVACAINE 5MG/ML 20ML VIAL ONE (13:16)
[2021-01-13] MEDS ORDERED: methylPREDNISolone ACETATE 40 MG/ML 1 ML VIAL ONE (13:16)
[2021-01-13] MEDS ORDERED: fentaNYL (PF) 50 MCG/ML 2 ML AMP ONE (13:16)
[2021-01-13] MEDS ORDERED: IV FLUID CONTINUATION 800 ML IV ONE (13:42)
--- NOTE | 2021-01-13 13:43 | P.PCN ---
Date of Procedure: 01/13/21 Procedure(s) Performed: PREOPERATIVE DIAGNOSIS: Cervical Spondylosis with Facet Arthropathy.without myelopathy Cervicogenic headache. Occipital neuralgia POSTOPERATIVE DIAGNOSIS: Same as preop diagnosis. PROCEDURES: Diagnostic bilateral C2 ,. C3, C4 medial branch blocks, with fluoroscopic guidance (fluoroscopy images available in radiology department ) ( to target the facet joint at bilateral C2-3 , C3-4 ) ANESTHESIA: Monitored anesthesia care as per anesthesia department. EBL: Minimal PROCEDURE INDICATION: The patient with neck pain secondary to cervical arthropathy unresponsive to more conservative treatments. PROCEDURE DESCRIPTION / TECHNIQUE: The patient was seen and identified in the preoperative area. Risks, benefits, complications, and alternatives were discussed with the patient, the patient agreed to proceed with the procedure and signed the consent. IV was started. Vital signs remained stable throughout the procedure. Patient was taken to the OR and time out was completed. The patient was placed in the supine position on the procedure table.. The cervical area was prepped and draped in the usual sterile fashion ( with chlorhexidine x3 ). Critical pause was taken. Vital signs were closely monitored during the procedure. Conscious sedation was used during the procedure to decrease patients anxiety. Using cross-table lateral fluoroscopy, the centroid of the trapezoid of right C2 ,C3, C4 ,was identified, marked, and localized with 1% lidocaine 1 ml at each level for skin and Sub Q infiltrations . Subsequently, a 22 G 3 spinal needle was advanced guided by fluoroscopy to the centroid of the trapezoid of Right C2 , C3, C4 . [place] tip position was confirmed at the centroid of the trapezoids of Right C2 , C3 , C4 , with anteroposterior fluoroscopy. Subsequently, 1.5 ml of preservative-free Ropivacaine 0.5% mixed with Depo- Medrol 20 mg and half ml of the mixture was injected after negative aspiration for blood and CSF. [place] was then removed intact the same procedure was repeated at the left C2 ,C3 , C4 levels. COMPLICATIONS: No acute complications. DISPOSITION / PLANS: The patient was placed in a supine position and transferred to the recovery area in a stable condition for observation and was discharged from the recovery room after meeting discharge criteria. Home discharge instructions given to the patient by the staff. The patient was reexamined prior to discharge. The patient will schedule a follow up in the clinic in 2-4 weeks.
--- NOTE | 2021-01-13 13:54 | FL ---
EXAMINATION TYPE: FL guided pain mgmt statistic DATE OF EXAM: 01/13/2021 CLINICAL HISTORY: Neck pain. TECHNIQUE: Fluoroscopy. COMPARISON: None. FINDINGS: Fluoroscopic guidance was provided during pain relief procedure performed by Dr. Sung . A total of 8 seconds of fluoroscopic time was utilized during the procedure and two spot images ar e acquired. Images acquired shows needle localization in the cervical spine. IMPRESSION: As Above.
[2021-01-13 14:00] VITALS: BP 106/67; PULSE 73
== END 2021-01-13 14:18 | disposition home or self-care (01) ==
LOC: ORPAIN 12:05
PROVIDERS: ATTEND Specialist
DX: M47.812 Spondylosis without myelopathy or radiculopathy, cervical region (principal); R51.9 Headache, unspecified; M54.81 Occipital neuralgia; I25.10 Atherosclerotic heart disease of native coronary artery without angina pectoris; G47.33 Obstructive sleep apnea (adult) (pediatric); R56.9 Unspecified convulsions; G80.2 Spastic hemiplegic cerebral palsy; Z88.1 Allergy status to other antibiotic agents; Z88.5 Allergy status to narcotic agent; Z88.0 Allergy status to penicillin; Z91.048 Other nonmedicinal substance allergy status; Z86.73 Personal history of transient ischemic attack (TIA), and cerebral infarction without residual deficits; Z79.1 Long term (current) use of non-steroidal anti-inflammatories (NSAID); Z79.899 Other long term (current) drug therapy; Z98.890 Other specified postprocedural states
CPT/HCPCS: 81025; 64490; 64491; J2250; J1030; J3010; J2795

== ENCOUNTER 2021-02-17 09:22 | Day surgery (SDC) | payer OTHER ==
[2021-02-07 14:39] VITALS: BMI 20.2
[2021-02-17] MEDS ORDERED: LACTATED RINGERS 1,000 ML IV ONE ×2 (10:09)
[2021-02-17] MEDS ORDERED: IOPAMIDOL M200 10 ML VIAL ONE (10:24)
[2021-02-17] MEDS ORDERED: ROPIVACAINE 5MG/ML 20ML VIAL ONE (10:24)
[2021-02-17] MEDS ORDERED: fentaNYL (PF) 50 MCG/ML 2 ML AMP ONE (10:24)
[2021-02-17] MEDS ORDERED: MIDAZOLAM 2 MG/2 ML VIAL ONE (10:24)
[2021-02-17] MEDS ORDERED: DEXAMETHASONE SOD PHOSPHATE 10 MG/ML 1 ML VIAL ONE (10:24)
--- NOTE | 2021-02-17 10:43 | P.PCN ---
Date of Procedure: 02/17/21 Description of Procedure: PREOPERATIVE DIAGNOSIS: Cervical Spondylosis with Facet Arthropathy.without myelopathy Cervicogenic headache. Occipital neuralgia POSTOPERATIVE DIAGNOSIS: Same as preop diagnosis. PROCEDURES: Diagnostic bilateral C2 ,. C3, C4 medial branch blocks, with fluoroscopic guidance (fluoroscopy images available in radiology department ) ( to target the facet joint at bilateral C2-3 , C3-4 ) #2 ANESTHESIA: Monitored anesthesia care as per anesthesia department. EBL: Minimal PROCEDURE INDICATION: The patient with neck pain secondary to cervical arthropathy unresponsive to more conservative treatments. PROCEDURE DESCRIPTION / TECHNIQUE: The patient was seen and identified in the preoperative area. Risks, benefits, complications, and alternatives were discussed with the patient, the patient agreed to proceed with the procedure and signed the consent. IV was started. Vital signs remained stable throughout the procedure. Patient was taken to the OR and time out was completed. The patient was placed in the supine position on the procedure table.. The cervical area was prepped and draped in the usual sterile fashion ( with chlorhexidine x3 ). Critical pause was taken. Vital signs were closely monitored during the procedure. Conscious sedation was used during the procedure to decrease patients anxiety. Using cross-table lateral fluoroscopy, the centroid of the trapezoid of right C2 ,C3, C4 ,was identified, marked, and localized with 1% lidocaine 1 ml at each level for skin and Sub Q infiltrations . Subsequently, a 22 G 3 spinal needle was advanced guided by fluoroscopy to the centroid of the trapezoid of Right C2 , C3, C4 . [place] tip position was confirmed at the centroid of the trapezoids of Right C2 , C3 , C4 , with anteroposterior fluoroscopy. Subsequently, 1.5 ml of preservative-free Ropivacaine 0.5% mixed with Depo- Medrol 20 mg and half ml of the mixture was injected after negative aspiration for blood and CSF. [place] was then removed intact the same procedure was repeated at the left C2 ,C3 , C4 levels. COMPLICATIONS: No acute complications. DISPOSITION / PLANS: The patient was placed in a supine position and transferred to the recovery area in a stable condition for observation and was discharged from the recovery room after meeting discharge criteria. Home discharge instructions given to the patient by the staff. The patient was reexamined prior to discharge. The patient will schedule a follow up in the clinic in 2-4 weeks.
[2021-02-17] MEDS ORDERED: IV FLUID CONTINUATION 1,000 ML IV ONE (10:50)
[2021-02-17 10:55] VITALS: RESP 16
[2021-02-17 11:19] VITALS: BP 111/74; PULSE 81
--- NOTE | 2021-02-17 12:26 | FL ---
Fluoroscopy INDICATION: Pain FINDINGS: Fluoroscopy time: 0.11 seconds. Images obtained: 6. IMPRESSIONS: 1. Documentation of fluoroscopy.
== END 2021-02-17 11:38 | disposition home or self-care (01) ==
LOC: ORPAIN 09:22
PROVIDERS: ATTEND Anesthesiology
DX: M47.812 Spondylosis without myelopathy or radiculopathy, cervical region (principal); M54.81 Occipital neuralgia
CPT/HCPCS: 81025; 64490; 64491; J2250; J1100; J3010; Q9966; J2795

== ENCOUNTER → 2021-03-06 | Outpatient (CLI) | payer OTHER ==
[2021-03-06 12:43] VITALS: BP 107/71; PULSE 103; RESP 20; TEMP 98.4
--- NOTE | 2021-03-06 12:43 | P.PN ---
Subjective Progress Note Date: 03/06/21 Since follow-up visit for this 35 years old female with a chronic history of severe neck pain and headaches she is diagnosed with cervical genic headache and cervical spondylosis with cervical facet arthropathy, recently we have done diagnostic medial branch block cervical area at C2, C3, C4 and she reported that she get more than 80% improvement of her neck pain and headache after the first diagnostic medial branch block, and she get 90% improvement of her neck pain and headache after the second diagnostic medial branch block, is very satisfied with the result and she wanted to proceed with RFA of the medial branch cervical area Assessment and Plan Plan: Physical Examinations : -Constitutiona : Cooperative , not in acute distress . -HEENT : nech : supple , no Lymphadenopathy , normal thyroid size . : eyes : no ptosis , no icterus, no photophobia . - neurologic : Cranial nerve II to XII intact , no focal neurological deffecit . -psychatric : alert , oriented X 3 , appropriate affect , intact judgment and insight . -Lymphatic : no Lymphadenopathy . - musculoskeltal : Cervical Spine motor stregnth in the deltoid and biceps, decreased right side , normal Left side motor stregnth biceps and the wrist extensors decreased right side ,normal left side . motor stregnth in the triceps muscle . Decreased Right side , normal Left side cervical facet loading test: Positive Bilaterally Tenderness over the occipital nerve bilaterally . Results Comments: MRI of the brain= congenital infarction left cerebellar and middle cerebral artery, no acute intracranial processes MRI of the cervical spine Assessment and Plan Plan: Assessment and plan=1-cervical spondylosis with cervical facet arthropathy witho ut myelopathy. 2-cervicogenic headache. 3-occipital neuralgia. Patient got excellent pain relief after diag nostic medial branch block cervical area at C2, C3 ,C4 done twice She will be good candidate to RFA of the medial branch at C2, C3 ,C4 bilaterally Time with Patient: Less than 30
== END ==
LOC: PNWHC3 12:12
PROVIDERS: ATTEND Specialist
DX: M47.812 Spondylosis without myelopathy or radiculopathy, cervical region (principal); M54.81 Occipital neuralgia; G44.89 Other headache syndrome
CPT/HCPCS: 99211

== ENCOUNTER → 2021-03-17 | Day surgery (SDC) | payer OTHER ==
[2021-03-15 08:59] VITALS: BMI 20.5
[~2021-03-17] MED LIST changes: +LACTATED RINGERS 1,000 ML IV ONE; -LACTATED RINGERS 1,000 ML IV SCH; +LIDOCAINE 1% (10MG/ML) FOR IV START INTRADERMA ONE; +LIDOCAINE 1% INJ 10MG/ML (20 ML MDV) ONE; +MIDAZOLAM 2 MG/2 ML VIAL ONE; +ROPIVACAINE 5MG/ML 20ML VIAL ONE; +fentaNYL (PF) 50 MCG/ML 2 ML AMP ONE
[2021-03-17 12:44] VITALS: TEMP 99.1
[2021-03-17 13:14] LABS: Basophils % (A) 0 %; Eosinophils # (A) 0.4 k/uL (0-0.7); Eosinophils % (A) 9 %; HCT 39.8 % (34.0-46.0); HGB 13.4 gm/dL (11.4-16.0); Lymphocytes # (A) 1.5 k/uL (1.0-4.8); Lymphocytes % (A) 31 %; MCH 32.7 pg (25.0-35.0); MCHC 33.6 g/dL (31.0-37.0); MCV 97.2 fL (80.0-100.0); Mean Platelet Volume 6.9; Monocytes # (A) 0.4 k/uL (0-1.0); Monocytes % (A) 8 %; Neutrophils # (A) 2.5 k/uL (1.3-7.7); Neutrophils % (A) 52 %; Platelet Count 185 k/uL (150-450); RDW 12.2 % (11.5-15.5); WBC 4.8 k/uL (3.8-10.6)
[2021-03-17 13:26] LABS: ALT 11 U/L (4-34); AST 18 U/L (14-36); African American GFR (CKD) >90 (>60 ml/min/1.73 sqM); Alkaline Phosphatase 52 U/L (38-126); Anion Gap 8 mmol/L; Blood Urea Nitrogen 13 mg/dL (7-17); Calcium 9.1 mg/dL (8.4-10.2); Carbamazepine (Tegretol) 7.8 ug/mL; Carbon Dioxide 31 mmol/L (22-30); Chloride 103 mmol/L (98-107); Glucose 67 mg/dL (74-99); Non-African American GFR(CKD) >90 (>60 ml/min/1.73 sqM); Potassium 3.7 mmol/L (3.5-5.1); Sodium 142 mmol/L (137-145); Total Bilirubin 0.3 mg/dL (0.2-1.3); Total Protein 6.9 g/dL (6.3-8.2)
--- NOTE | 2021-03-17 13:26 | P.PCN ---
Date of Procedure: 03/17/21 Description of Procedure: PREOPERATIVE DIAGNOSIS: Cervicalgia POSTOPERATIVE DIAGNOSIS: Same Surgeon: Simon Vivas M.D. PROCEDURE PERFORMED: Cervical Medial Branch Radiofrequency Ablation, at the following levels: C2-3, C3-4 bilaterally ANESTHESIA: Lidocaine 1% 5 mL, Moderate sedation with intravenous Versed and fentanyl with anesthesia team ESTIMATED BLOOD LOSS: Minimal Fluoroscopy was used for the procedure and images were saved in the radiology portion of the chart. PROCEDURE INDICATION: The patient with neck pain secondary to cervical facet arthropathy who had more than 50% relief of pain with previous diagnostic lumbar medial branch block X2. PROCEDURE DESCRIPTION / TECHNIQUE: The patient was seen and identified in the preoperative area. Risks, benefits, complications, including but not limited to risk of infection ,bleeding , allergic reactions to the medications and incomplete pain relief , and alternatives were discussed with the patient, the patient agreed to proceed with the procedure and signed the consent. IV was started. The operative site was marked. Patient was taken to the OR and time out was completed. The patient was placed in the prone position on the procedure table. The lumbar area was prepped and draped in the usual sterile fashion. . Vital signs were closely monitored during the procedure .IV sedation was used during the procedure to decrease patients anxiety. An AP fluoroscopic instructor decorating film was taken to identify the dens, the C2,C3, C4 vertebral bodies, and the waists of the articular pillars at the aforementioned levels. A pillar (caudal tilt) view was utilized to highlight the waists of the articular pillars at these levels. The skin was prepped with chlorhexidine and draped in the usual sterile fashion. The skin and subcutaneous tissue overlying the above levels were anesthetized using a 25-gauge 1-1/2-inch needle with 1% preservative free lidocaine for a total volume of 1 ml per level. An 18-gauge and 100 mm SMK needle with a 10 mm active tip was advanced, coaxially, in the pillar view until the needle tip was noted to slide into the groove of the articular pillar. A true lateral view was obtained and the needle tips were advanced to cover to the lateral aspect C2-3 joint line [TON], lateral aspect of the articular pillar at C3, C4 , for corresponding medial branch ablation. The needles were advanced until bony contact was felt and the tip of the SMK needle was confirmed to be in the groove of the waist of the articular pillars at the aforementioned levels. The needle positions were confirmed with AP and lateral fluoroscopic views. Procedure was done bilaterally one side at a time Motor stimulation was then performed at 2 Hz and up to 2V with only paraspinal muscle contraction noted at each level and no upper extremity stimulation. At this point, after negative aspiration, ropivacaine x 0.5 mL was injected at each level prior to radiofrequency ablation. Lesioning was then carried out at 85 degrees Celsius times 90 seconds with 1 cycles per level. Following lesioning the needles were removed. COMPLICATIONS: No acute complications. DISPOSITION / PLANS: The patient was placed in a supine position and transferred to the recovery area in a stable condition for observation and was discharged from the recovery room after meeting discharge criteria. Home discharge instructions given to the patient by the staff. The patient will follow up in clinic in 4 weeks.
[2021-03-17 13:28] LABS: Valproic Acid (Depakene) 49.6 ug/mL
[2021-03-17 13:31] VITALS: RESP 17
[2021-03-17 13:41] VITALS: BP 106/72; PULSE 80
--- NOTE | 2021-03-17 13:51 | FL ---
Fluoroscopy HISTORY: Pain 40 seconds fluoroscopy time supplied to the referring clinician. 3 intraoperative C-arm images docum ent the procedure. See dictated report from anesthesia.
[2021-03-17 14:06] LABS: Cholesterol 202 mg/dL (<200); Triglycerides 40 mg/dL (<150)
[2021-03-17 14:14] LABS: LDL Cholesterol,Calculated 72 mg/dL (0-99)
[2021-03-17 14:16] LABS: HDL Cholesterol 122 mg/dL (40-60)
[2021-03-18 16:39] LABS: Lamotrigine (Lamictal) 8.5 ug/mL (2.0-15.0)
== END ==
LOC: ORPAIN 11:55
PROVIDERS: ATTEND Anesthesiology
DX: M47.812 Spondylosis without myelopathy or radiculopathy, cervical region (principal); Z88.5 Allergy status to narcotic agent; Z88.8 Allergy status to other drugs, medicaments and biological substances; Z91.048 Other nonmedicinal substance allergy status; G47.33 Obstructive sleep apnea (adult) (pediatric); I25.10 Atherosclerotic heart disease of native coronary artery without angina pectoris; I10 Essential (primary) hypertension; R56.9 Unspecified convulsions; I69.351 Hemiplegia and hemiparesis following cerebral infarction affecting right dominant side; Z79.891 Long term (current) use of opiate analgesic; Z79.899 Other long term (current) drug therapy
CPT/HCPCS: 81025; 80156; 80164; 80165; 80061; 80053; 80175; 80157; 84443; 85025; 82306; 64633; 64634; J2250; J2001; J3010; J2795

== ENCOUNTER → 2021-04-12 | Outpatient (CLI) | payer OTHER ==
[2021-04-12 08:34] VITALS: BP 100/63; PULSE 95; RESP 18; TEMP 98.5
--- NOTE | 2021-04-12 08:57 | P.PN ---
Subjective Progress Note Date: 04/12/21 This is follow-up visit for this 35 years old female with a history of the year and chronic headache and neck pain she's been diagnosed with cervical spondylosis with cervical facet arthropathy, occipital neuralgia, cervical genic headache, status post RFA of the medial branch cervical area, patient here today for follow-up visit, she reported that her headache and neck pain improved significantly her quality of life improved, after the RFA, and her activity of daily livings improved significantly Objective - Vital Signs Vital signs: Vital Signs Temp 98.5 F 04/12/21 08:30 Pulse 95 04/12/21 08:30 Resp 18 04/12/21 08:30 BP 100/63 04/12/21 08:30 Pulse Ox 100 04/12/21 08:30 Intake & Output 04/11/21 04/12/21 04/12/21 18:59 06:59 18:59 Weight 53.524 kg - Exam Physical Examinations : -Constitutiona : Cooperative , not in acute distress Assessment and Plan Plan: Assessment and plan=1-cervical spondylosis with cervical facet arthropathy without myelopathy 2-occipital neuralgia. 3-ergogenic headache. The pain and headache improved after RFA of the medial branch cervical area, she will follow up when necessary - PQRS measures = - Patient's medications are documented in the chart. -Tobacco use is negative and counseling.Given. -Patient's has not received pneumococcal vaccine. -Advanced care planning discussed, patient not eligible. -Opiate contract not signed. -Pain positive and follow-up visit/procedure is scheduled. -Patient's blood pressure measured [100/63 ] , and documented in the record ,and patient will follow up with the primary care. -Patient's weight was measured and body mass index [ 20.3 ] within the normal limits and counseling was done. and patient instructed to follow-up with the primary care physician. -Patient was not identified as an unhealthy alcohol user Time with Patient: Less than 30
== END ==
LOC: PNWHC3 08:24
PROVIDERS: ATTEND Specialist
DX: M47.812 Spondylosis without myelopathy or radiculopathy, cervical region (principal); M54.81 Occipital neuralgia; Z98.890 Other specified postprocedural states; Z88.1 Allergy status to other antibiotic agents; Z88.5 Allergy status to narcotic agent; Z88.0 Allergy status to penicillin; Z91.041 Radiographic dye allergy status; Z88.8 Allergy status to other drugs, medicaments and biological substances
CPT/HCPCS: 99211

== ENCOUNTER → 2021-07-26 | Outpatient (CLI) | payer OTHER ==
[2021-07-26 14:26] VITALS: BP 107/72; PULSE 99; RESP 18; TEMP 98.2
--- NOTE | 2021-07-26 14:42 | P.PN ---
Subjective Progress Note Date: 07/26/21 This is Follow up visit for this 36 years old female with a chronic history of severe neck pain and headache, started more than 10 years ago and intensity of the pain and headache increases with any neck movement, and any activity, intensity of the neck pain and headaches increased over time and currently is disabling and is not controlled with the current medications, she tried different kind of pain medication without any significant relief she tried Botox injection, chiropractors, physical therapy, without any significant improvement, she had occipital nerve block and some degree of benefit, patient diagnosed with congenital cerebral palsy and 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 -HEENT : nech : supple , no Lymphadenopathy , normal thyroid size . : eyes : no ptosis , no icterus, no photophobia . - neurologic : Cranial nerve II to XII intact , no focal neurological deffecit . -psychatric : alert , oriented X 3 , appropriate affect , intact judgment and insight . -Lymphatic : no Lymphadenopathy . - musculoskeltal : Cervical Spine motor stregnth in the deltoid and biceps, decreased right side , normal Left side motor stregnth biceps and the wrist extensors decreased right side ,normal left side . motor stregnth in the triceps muscle . Decreased Right side , normal Left side cervical facet loading test: Positive Bilaterally Tenderness over the occipital nerve bilaterally . 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 2-cervicogenic headache. 3-occipital neuralgia. Patient could benefit from bilateral occipital nerve block. Patient could benefit from Voltaren gel to be applied to the cervical area and the location of the occipital nerve In the future we can repeat RFA of the medial branch cervical area at C2,C3 , C 4 bilaterally. - PQRS measures = - Patient's medications are documented in the chart. -Tobacco use is negative and counseling.Given. -Patient's has not received pneumococcal vaccine. -Advanced care planning discussed, patient not eligible. -Opiate contract not signed. -Pain positive and follow-up visit/procedure is scheduled. -Patient's blood pressure measured [ 107/72 ] , and documented in the record ,and patient will follow up with the primary care. -Patient's weight was measured and body mass index [22.3 ] within the normal limits and counseling was done. and patient instructed to follow-up with the primary care physician. -Patient was not identified as an unhealthy alcohol user Objective - Vital Signs Vital signs: Vital Signs Temp 98.2 F 07/26/21 14:21 Pulse 99 07/26/21 14:21 Resp 18 07/26/21 14:21 BP 107/72 07/26/21 14:21 Pulse Ox 100 07/26/21 14:21 Intake & Output 07/25/21 07/26/21 07/26/21 18:59 06:59 18:59 Weight 55.338 kg
== END ==
LOC: PNWHC3 14:13
PROVIDERS: ATTEND Specialist
DX: M54.81 Occipital neuralgia (principal); M47.812 Spondylosis without myelopathy or radiculopathy, cervical region; Z88.1 Allergy status to other antibiotic agents; Z88.5 Allergy status to narcotic agent; Z91.041 Radiographic dye allergy status; Z88.0 Allergy status to penicillin; Z91.048 Other nonmedicinal substance allergy status
CPT/HCPCS: 99211

== ENCOUNTER 2021-08-15 11:21 | Day surgery (SDC) | payer OTHER ==
[2021-08-15 11:57] VITALS: RESP 16; TEMP 98.9
[2021-08-15] MEDS ORDERED: LIDOCAINE 1% (10MG/ML) FOR IV START INTRADERMA ONE (12:10)
[2021-08-15] MEDS ORDERED: LACTATED RINGERS 1,000 ML IV ONE (12:24)
[2021-08-15] MEDS ORDERED: MIDAZOLAM 2 MG/2 ML VIAL ONE (12:41)
[2021-08-15] MEDS ORDERED: methylPREDNISolone ACETATE 40 MG/ML 1 ML VIAL ONE (12:41)
[2021-08-15] MEDS ORDERED: ROPIVACAINE 5MG/ML 20ML VIAL ONE (12:41)
[2021-08-15] MEDS ORDERED: IV FLUID CONTINUATION 775 ML IV ONE (12:55)
--- NOTE | 2021-08-15 12:56 | P.PCN ---
Date of Procedure: 08/15/21 Description of Procedure: PREOPERATIVE DIAGNOSIS: Occipital neuralgia, and headaches POSTOPERATIVE DIAGNOSIS: Occipital neuralgia, and headaches PROCEDURES: 1. Bilateral Greater occipital nerve block SURGEON: Chris Fernandes ANESTHESIA: Local and IV sedation : Versed2 mg. EBL: None. Specimen removed: None PROCEDURE INDICATIONS: This patient with a history of chronic headaches, and occipital neuralgia. Patient tried conservative therapy. Came here for intervention management. Procedure and Findings: The patient was seen and examined and written informed consent was obtained after explaining the risks, benefits and alternative of the procedure to the patient. As per patient request for anxiety IV was started in the preoperative holding area for sedation. The patient was positioned in the sitting position with the head slightly flexed and forehead rested on a pillow. By palpation, the external occipital protuberance and mastoid process were identified and mid point in between was located. The target point for greater occipital nerve was just medial to the occipital artery pulsation. The skin preparation was done with ChloraPrep X2 and sterile technique was observed throughout the procedure. A 25-guage, 1.5 inch needle was used for the procedure. A 25-gauge 1.5 inch needle was placed vertically downward, bony contact was obtained, negative aspiration was confirmed and 8 ml solution was injected. The needle was redirected little medially and laterally in a fanning fashion and addition medication was injected after negative aspiration. The block solution containing 0.5% preservative-free bupivacaine 6 mL +40 MG of Depo-Medrol. The needle was removed, Entire procedure repeated on the left side for greater occipital nerve . Needle removed. needle puncture sites were cleaned and pressure was applied. The patient tolerated the procedure very well. COMPLICATIONS: None. DISPOSITION / PLANS: The patient was placed in a supine position and transferred to the recovery area in a stable condition for observation and was discharged from the recovery room after meeting discharge criteria. Home discharge instructions given to the patient by the staff. The patient was reexamined prior to discharge. The patient will schedule for follow-up visit with the pain clinic in 2-4 weeks duration
[2021-08-15] MEDS ORDERED: LACTATED RINGERS 1,000 ML IV SCH (13:00)
[2021-08-15 13:15] VITALS: BP 112/73; PULSE 96
== END 2021-08-15 13:30 | disposition home or self-care (01) ==
LOC: ORPAIN 11:21
DX: M54.81 Occipital neuralgia (principal); R51.9 Headache, unspecified; Z88.1 Allergy status to other antibiotic agents; Z88.5 Allergy status to narcotic agent; Z88.0 Allergy status to penicillin; Z88.8 Allergy status to other drugs, medicaments and biological substances; Z98.890 Other specified postprocedural states
CPT/HCPCS: 81025; 64405; J2250; J1030; J2795; 99152

== ENCOUNTER → 2021-09-13 | Outpatient (CLI) | payer OTHER ==
[2021-09-13 10:08] VITALS: BP 107/74; PULSE 100; RESP 18
--- NOTE | 2021-09-13 15:41 | P.PN ---
Subjective Progress Note Date: 09/13/21 Yohana is a 36-year-old female presenting to clinic today for follow-up evaluation after bilateral occipital nerve block. She has a history of cerebral palsy and migraine headaches. She reports since the nerve block for the first week she had 100% relief of her migraines during the second week she'll he had one migraine headache. However her migraines have returned however not as frequent and not as severe duration but they're increasing over time. Unknown on any trigger of the migraines. She describes them as a constant squeezing achy sensation. They're better with her medication and darkness. Temperature average pain is 6 out of 10 on a 0-to-10 scale. At this visit her and her mother requested that we take over her Toradol treatment. The patient's previous primary care provider has moved to practice over and hour and a half away from a patient they feel its unrealistic for her to travel that far. Objective - Exam Physical Examinations : -Constitutiona : Cooperative , not in acute distress . -HEENT : nech : supple , no Lymphadenopathy , normal thyroid size . : eyes : no ptosis , no icterus, no photophobia . - neurologic : Cranial nerve II to XII intact , right paralysis . -psychatric : alert , oriented X 3 , appropriate affect , intact judgment and insight . -Lymphatic : no Lymphadenopathy . - musculoskeltal : Cervical Spine motor stregnth in the deltoid and biceps, decreased right side , normal Left side motor stregnth biceps and the wrist extensors decreased right side ,normal left side . motor stregnth in the triceps muscle . Decreased Right side , normal Left side deep tendon reflexes normal at the biceps , normal at Brachioradialis , normal at triceps. Lumber spine moter stegnth lower extremities ,thigh and legs 5/5 Right side , 5/5 Left side deep tendon reflexes : normal Knee Jerk , normal ankle Jerk Assessment and Plan Assessment: Assessment and plan Assessment: Cerebral palsy Occipital neuralgia Migraine headache Plan: Scheduled patient for repeat bilateral occipital nerve block Prescribed Ketorolac 30 mg/mL #15 vials; no refills Follow up in [address] Sung was on the phone for consultation during his visit. I have spent 28 minutes on patient care today. The time was used to review the medical records including relevant urine studies and Prescription history (MAPs), review of the available imaging, evaluation and examination of the patient, coordination of care with the medical staff and if applicable referring physicians, as well as creation of the medical record. - PQRS measures = - Patient's medications are documented in the chart. -Tobacco use is negative -Patient's has not received pneumococcal vaccine. -Advanced care planning discussed, patient not eligible. -Opiate contract not signed. -Pain positive and follow-up visit/procedure is scheduled. -Patient's blood pressure measured 107/74 , and documented in the record ,and patient will follow up with the primary care. -Patient was not identified as an unhealthy alcohol user Time with Patient: Less than 30
== END ==
LOC: PNWHC3 09:53
PROVIDERS: ATTEND Student in an Organized Health Care Education/Training Program
DX: M54.81 Occipital neuralgia (principal); G80.9 Cerebral palsy, unspecified; G43.909 Migraine, unspecified, not intractable, without status migrainosus; Z88.5 Allergy status to narcotic agent; Z88.0 Allergy status to penicillin; Z88.1 Allergy status to other antibiotic agents; Z91.041 Radiographic dye allergy status; Z88.8 Allergy status to other drugs, medicaments and biological substances
CPT/HCPCS: 99211

== ENCOUNTER 2021-09-26 08:49 | Day surgery (SDC) | payer OTHER ==
[2021-09-26 09:08] VITALS: TEMP 98.8
[2021-09-26] MEDS ORDERED: LACTATED RINGERS 1,000 ML IV SCH (09:15)
[2021-09-26] MEDS ORDERED: TRIAMCINOLONE ACETONIDE 40 MG/ML 1 ML VIAL ONE (09:17)
[2021-09-26] MEDS ORDERED: ROPIVACAINE 5MG/ML 20ML VIAL ONE (09:17)
--- NOTE | 2021-09-26 09:34 | P.PCN ---
Date of Procedure: 09/26/21 Surgeon: Rambo Trujillo Pathology: none sent Condition: stable Disposition: PACU Description of Procedure: Pre-operative diagnosis: 1- occipital neuralgia Post Operative Diagnosis 1- occipital neuralgia Procedure: 1- B/l greater occipital nerve block with ultrasound guidance ANESTHESIA: Local with Lidocaine 1 % EBL: Minimal PROCEDURE INDICATION: The patient with neck pain and headache secondary to occipital neuralgea unresponsive to conservative treatments. PROCEDURE DESCRIPTION / TECHNIQUE: The patient was seen and identified in the preoperative area. Risks, benefits, complications, and alternatives were discussed with the patient, the patient agreed to proceed with the procedure and signed the consent. IV was started. Vital signs remained stable throughout the procedure. Patient was taken to the OR and time out was completed. The patient was placed in the prone position on the procedure table. . The cervical area and right occiptial area were prepped with chloraprep. Critical pause was taken. Vital signs were closely monitored during the procedure. The the occipital exuberance and superior nuchal line were identified on the right side of the occiput. The greater occipital nerve location was estimated to be medial to the occipital artery . The occipital artery was identified by ultrasound I used 25-gauge 1-1/2 inch needle to go through the skin and infiltrate 2 MLS of a solution made up of 4 MLS Ropivacaine 0.5% +20 mg of Kenalog. The procedure was repeated in the same manner on the left side. P atient tolerated procedure well.
[2021-09-26 09:39] VITALS: RESP 16
[2021-09-26 09:56] VITALS: BP 99/52; PULSE 87
== END 2021-09-26 10:02 | disposition home or self-care (01) ==
LOC: ORPAIN 08:49
PROVIDERS: ATTEND Anesthesiology
DX: M54.81 Occipital neuralgia (principal); Z88.5 Allergy status to narcotic agent; Z88.0 Allergy status to penicillin; Z88.8 Allergy status to other drugs, medicaments and biological substances; Z91.048 Other nonmedicinal substance allergy status; R56.9 Unspecified convulsions
CPT/HCPCS: 81025; 64405; 76942; J3301; J2001; J2795

== ENCOUNTER → 2021-10-11 | Outpatient (CLI) | payer OTHER ==
--- NOTE | 2021-10-11 10:47 | P.PN ---
Subjective Progress Note Date: 10/11/21 This is Follow up visit for this 36 years old female, with a chronic history of severe neck pain and headache, started more than 10 years ago and intensity of the pain and headache increases with any neck movement, and any activity, intensity of the neck pain and headaches increased over time and currently is disabling ,and is not controlled with the current medications, she tried different kind of pain medication without any significant relief she tried Botox injection, chiropractors, physical therapy, without any significant improvement, she had occipital nerve block and some degree of benefit, patient diagnosed with congenital cerebral palsy and she had left MCA stroke with residual r ight-sided spasticity, previously we have done RFA of the medial branch cervical area, which helped significantly, and recently we have done bilateral occipital nerve block and she reported that she had excellent pain relief after occipital nerve block, and to need to use Voltaren gel when necessary to be applied to the cervical area and the location of the occipital nerve, and also patient to use Toradol 30 mg IM in case of severe headache which she uses it only 2-3 times a week, Physical Examinations : -Constitutiona : Cooperative , not in acute distress . -HEENT : nech : supple , no Lymphadenopathy , normal thyroid size . : eyes : no ptosis , no icterus, no photophobia . - neurologic : Cranial nerve II to XII intact , no focal neurological deffecit . -psychatric : alert , oriented X 3 , appropriate affect , intact judgment and insight . -Lymphatic : no Lymphadenopathy . - musculoskeltal : Cervical Spine motor stregnth in the deltoid and biceps, decreased right side , normal Left side motor stregnth biceps and the wrist extensors decreased right side ,normal left side . motor stregnth in the triceps muscle . Decreased Right side , normal Left side cervical facet loading test: Positive Bilaterally Tenderness over the occipital nerve bilaterally . 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 2-cervicogenic headache. 3-occipital neuralgia. Patient good result from bilateral occipital nerve block. She had good results from RFA of the medial branch cervical Prescription refill for Toradol 30 mg IM with the syringe as well as given today, prescription refill for Voltaren gel 1% given today The future patient could benefit from occipital nerve block and from RFA of the medial branch cervical area - PQRS measures = - Patient's medications are documented in the chart. -Tobacco use is negative and counseling.Given. -Patient's has not received pneumococcal vaccine. -Advanced care planning discussed, patient not eligible. -Opiate contract not signed. -Pain positive and follow-up visit/procedure is scheduled. -Patient's blood pressure measured [ 101/57 ] , and documented in the record ,and patient will follow up with the primary care. -Patient's weight was measured and body mass index [22.3 ] within the normal limits and counseling was done. and patient instructed to follow-up with the primary care physician. -Patient was not identified as an unhealthy alcohol user
[2021-10-11 10:55] VITALS: BP 101/59; PULSE 69; RESP 18; TEMP 98.5
== END ==
LOC: PNWHC3 10:12
PROVIDERS: ATTEND Specialist
DX: M47.812 Spondylosis without myelopathy or radiculopathy, cervical region (principal); M54.81 Occipital neuralgia; Z88.1 Allergy status to other antibiotic agents; Z88.5 Allergy status to narcotic agent; Z91.041 Radiographic dye allergy status; Z88.0 Allergy status to penicillin; Z91.09 Other allergy status, other than to drugs and biological substances
CPT/HCPCS: 99211

== ENCOUNTER → 2022-02-12 | Outpatient (CLI) | payer OTHER ==
--- NOTE | 2022-02-12 10:35 | P.PN ---
Subjective Progress Note Date: 02/12/22 Principal diagnosis: A 36 yr old female with mother at side with a history of severe and chronic neck pain secondary to degenerative disc diseases and spondylosis with facet arthropathy presents today for evaluation and medication refills. Pain level is currently at 2 out of 10 in intensity, dull, achy in the base of the cervical spine with radiation of pain between the shoulders bilaterally as well as upwards toward the head. 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 Pain does not have any provocative factors. Pain is alleviated with medications, topicals, alternating ice and heat, physical therapy with her last treatment 1 week ago, chiropractic treatments every 1-2 weeks, bath soaks, massage and rest. Interventional pain procedures completed include BL O.N. blocks & Toradol IM Patient is currently on Ibuprofen, Flexeril prn Patient denies any side effects of the medication(s), denies excessive drowsiness or sleepiness, denies suicidal ideation and reports that the current pain medication is helping to control the pain and improve activities of daily living. Patient denies any motor or sensory deficits. Patient denies any fever or night sweats, denies any change in the bowel movements or urination. Physical Examination: -Constitutional: Cooperative. Not in acute distress . -HEENT: Neck is supple. No lymphadenopathy. No thyromegaly. Normal thyroid size. Eyes: No ptosis , no icterus, no photophobia. ENT: No auditory deficits. Normal oropharynx. No Thrush. - Respiratory: Chest clear to auscultations bilaterally. No wheezing. No rhonchi. - Cardiovascular: Regular rate and rhythm. S1 / S2 , no S3 , no S4. - Gastrointestinal: Abdomen soft no tenderness. Bowel sounds positive in all four quadrants. No organomegaly. - Genitourinary: Deferred. - Neurologic: Cranial nerve II to XII intact. No focal neurological deficits. - Psychatric: Alert & oriented x 3. Matching mood & appropriate affect. Judgment and insight intact. - Lymphatic: No Lymphadenopathy. - Musculoskeletal: Cervical spine: Muscle bulk/ tone/ strength in the bilateral upper extremities normal. Facet loading test cervical area positive over BL C5-C6, C6-C7, C7-T1 Lumbar spine: Motor bulk/ tone/ strength lower extremities , thigh and legs : 5/5 Deep tendon reflexes : Normal Knee Jerk. Normal Ankle Jerk . Vertebral body tenderness to palpation over Lumbar Facet Loading Test positive Straight Leg Raise: positive at 30 degrees right side/ left side Gaenslen's Test positive Sacral spine : Severe tenderness over the Sacroiliac joint: right side / left side Range of motion: Flexion of the lumbar spine <60 degrees Range of motion: Extension of the lumbar spine <20 degrees Gaenslen's Test positive Mariam test: positive right side / left side Assessment and plan: Chronic neck pain secondary to degenerative disc disease , spondylosis with facet arthropathy without myelopathy Will follow up with neurosurgeon to manage cerebral cyst. If pain is not managed, may return to injections for pain relief, if indicated. All patient questions answered MAPS reviewed and it was appropriate. Prescription refill for Toradol injections, Diclofenac gel prn & 1mL syringes with 29ga needle tips w 1 refill. I have spent 31 minutes on patient care today. Dr Sung was available by phone for the evaluation of this patient. The time was used to review the medical records including relevant urine studies and Prescription history (MAPs), review of the available imaging, evaluation and examination of the patient, coordination of care with the medical staff and if applicable referring physicians, as well as creation of the medical record PQRS Measure Charge Sheet PQRS Narrative: Smoking Status Never smoker Pain Intensity [Head] 8 Hx Alcohol Use (MH) No Home Medications: Ambulatory Orders Atomoxetine HCl [Strattera] 80 mg PO QAM 11/16/14 Divalproex [Depakote] 250 mg PO BID 11/16/14 Folic Acid 1 mg PO DAILY 11/16/14 carBAMazepine CHEW [TEGretol Chew] 100 mg PO HS 11/16/14 carBAMazepine [TEGretol] 200 mg PO 1200 11/16/14 carBAMazepine [TEGretol] 200 mg PO AC-BRKFST 11/16/14 fluvoxaMINE MALEATE [Luvox] 100 mg PO HS 11/16/14 fluvoxaMINE MALEATE [Luvox] 200 mg PO QAM 11/16/14 lamoTRIgine [LaMICtal] 100 mg PO BID 11/16/14 Metoclopramide [Reglan] 10 mg PO TID PRN 01/11/21 Cholecalciferol [Vitamin D3 (25 Mcg = 1000 Iu)] 25 mcg PO DAILY 12/15/21 Galcanezumab-Gnlm [Emgality Syringe] 300 mg SQ QMONTHLY 30 Days #1 each 12/18/21 Rimegepant Sulfate [Nurtec Odt] 75 mg SL DIRECTED PRN 02/08/22 Diclofenac Sodium Gel [Voltaren Gel] 4 gm TOPICAL BID PRN 30 Days #100 gm 02/12/22 Ketorolac [Toradol] 10 mg IM Q8HR PRN 30 Days #20 tab 02/12/22 Syringe and Needle,Insulin,1Ml [Insulin Syringe 28G 1/2" 1ML] 1 syr SQ DIRECTED 30 Days #20 each 02/12/22
[2022-02-12 10:46] VITALS: BP 115/78; PULSE 93; RESP 18; TEMP 98.1
== END ==
LOC: PNWHC3 09:46
PROVIDERS: ATTEND Specialist
DX: M50.30 Other cervical disc degeneration, unspecified cervical region (principal); M47.812 Spondylosis without myelopathy or radiculopathy, cervical region; G89.29 Other chronic pain; Z88.1 Allergy status to other antibiotic agents; Z88.5 Allergy status to narcotic agent; Z88.0 Allergy status to penicillin; Z91.041 Radiographic dye allergy status; Z88.8 Allergy status to other drugs, medicaments and biological substances
CPT/HCPCS: 99211

== ENCOUNTER → 2022-04-09 | Outpatient (CLI) | payer OTHER ==
--- NOTE | 2022-04-09 11:06 | P.PN ---
Subjective Progress Note Date: 04/09/22 Principal diagnosis: A 36 yr old female with mother at side with a history of severe and chronic neck pain secondary to cervical degenerative disc diseases and spondylosis with facet arthropathy presents today for medication refills. Pain level is currently at 2/10 in intensity but escalates as high as 5/10 in intensity with bright lights or loud sounds. Pain is dull/ achy in the base of the neck and shoots towards the whole head. Pain is alleviated with palliated with PT (last completed approx 2 mo ago), chiropractic treatments weekly, heat, ice, OTC medications, migraine medications, aquatherapy, topical volaten gel, laying in a dark/ quiet room and rest. Patient is currently on Toradol IM, Volaten gel. Patient denies any side effects of the medication(s), denies excessive drowsiness or sleepiness, denies suicidal ideation and reports that the current pain medication is helping to control the pain and improve activities of daily living. Patient denies any motor or sensory deficits. Patient denies any fever or night sweats, denies any change in the bowel movements or urination. Physical Examination: -Constitutional: Cooperative. Not in acute distress . -HEENT: Neck is supple. No lymphadenopathy. No thyromegaly. Normal thyroid size. Eyes: No ptosis , no icterus, no photophobia. ENT: No auditory deficits. Normal oropharynx. No Thrush. - Respiratory: Chest clear to auscultations bilaterally. No wheezing. No rhonchi. - Cardiovascular: Regular rate and rhythm. S1 / S2 , no S3 , no S4. - Gastrointestinal: Abdomen soft no tenderness. Bowel sounds positive in all four quadrants. No organomegaly. - Genitourinary: Deferred. - Neurologic: Cranial nerve II to XII intact. No focal neurological deficits. - Psychatric: Alert & oriented x 3. Matching mood & appropriate affect. Judgment and insight intact. - Lymphatic: No Lymphadenopathy. - Musculoskeletal: Cervical spine: Muscle bulk/ tone/ strength in the bilateral upper extremities normal Vertebral body tenderness to palpation over C2, C3, C4, C5 Facet loading test positive Thoracic spine Muscle bulk / tone/ strength in the bilateral paraspinal muscles normal Vertebral body tender to palpation over Facet loading test positive Lumbar spine: Motor bulk/ tone/ strength lower extremities , thigh and legs : 5/5 Deep tendon reflexes : Normal Knee Jerk. Normal Ankle Jerk . Vertebral body tenderness to palpation over Lumbar Facet Loading Test positive Straight Leg Raise: positive at 30 degrees right side/ left side Gaenslen's Test positive Sacral spine : Severe tenderness over the Sacroiliac joint: right side / left side Range of motion: Flexion of the lumbar spine <60 degrees Range of motion: Extension of the lumbar spine <20 degrees Gaenslen's Test positive John's Test positive Mariam test: positive right side / left side Thigh Thrust Test Sacral Thrust Test Assessment and plan: Chronic neck pain secondary to cervical degenerative disc disease , spondylosis with facet arthropathy without myelopathy All patient questions answered Prescription refill for Metoclopramide SL 10mg q4h prn queasiness #60 w 1 refill, Toradol 15mg IM #60 w 1 refill, syringes 1cc 28g 1/2" needle tips to use with Toradol, Voltaren gel apply to AA BID prn pain disp 1 tube w 1 refill. I have spent 31 minutes on patient care today. Dr Sung was available by phone for the evaluation of this patient. The time was used to review the medical records including relevant urine studies and Prescription history (MAPs), review of the available imaging, evaluation and examination of the patient, coordination of care with the medical staff and if applicable referring physicians, as well as creation of the medical record PQRS Measure Charge Sheet PQRS Narrative: Smoking Status Never smoker Hx Alcohol Use (MH) No Home Medications: Ambulatory Orders Atomoxetine HCl [Strattera] 80 mg PO QAM 11/16/14 Divalproex [Depakote] 250 mg PO BID 11/16/14 Folic Acid 1 mg PO DAILY 11/16/14 carBAMazepine CHEW [TEGretol Chew] 100 mg PO HS 11/16/14 carBAMazepine [TEGretol] 200 mg PO 1200 11/16/14 carBAMazepine [TEGretol] 200 mg PO AC-BRKFST 11/16/14 fluvoxaMINE MALEATE [Luvox] 100 mg PO HS 11/16/14 fluvoxaMINE MALEATE [Luvox] 200 mg PO QAM 11/16/14 lamoTRIgine [LaMICtal] 100 mg PO BID 11/16/14 Metoclopramide [Reglan] 10 mg PO TID PRN 01/11/21 Cholecalciferol [Vitamin D3 (25 Mcg = 1000 Iu)] 25 mcg PO DAILY 12/15/21 Galcanezumab-Gnlm [Emgality Syringe] 300 mg SQ QMONTHLY 30 Days #1 each 12/18/21 Rimegepant Sulfate [Nurtec Odt] 75 mg SL DIRECTED PRN 02/08/22 Diclofenac Sodium Gel [Voltaren Gel] 4 gm TOPICAL BID PRN 30 Days #100 gm 02/12/22 Ketorolac [Toradol] 10 mg IM Q8HR PRN 30 Days #20 tab 02/12/22 Syringe and Needle,Insulin,1Ml [Insulin Syringe 28G 1/2" 1ML] 1 syr SQ DIRECTED 30 Days #20 each 02/12/22
[2022-04-09 11:35] VITALS: BP 110/77; PULSE 103; RESP 18; TEMP 98.6
== END ==
LOC: PNWHC3 09:43
PROVIDERS: ATTEND Specialist
DX: M50.30 Other cervical disc degeneration, unspecified cervical region (principal); M47.812 Spondylosis without myelopathy or radiculopathy, cervical region; G89.29 Other chronic pain; Z88.0 Allergy status to penicillin; Z88.1 Allergy status to other antibiotic agents; Z88.5 Allergy status to narcotic agent; Z91.041 Radiographic dye allergy status; Z88.8 Allergy status to other drugs, medicaments and biological substances
CPT/HCPCS: 99211

== ENCOUNTER → 2022-06-04 | Outpatient (CLI) | payer OTHER ==
[2022-06-04 10:45] VITALS: BP 112/76; PULSE 95; RESP 18; TEMP 98.4
--- NOTE | 2022-06-04 15:02 | P.PAINPG ---
PQRS Measure Charge Sheet Comment: A 37 yr old female with a history of severe and chronic neck pain & HAs secondary to BL occipital neuralgia presents today for medication refills and evaluation of neck pain. Pain level is currently at 3/10 in intensity, constant, thumping, throbbing character originating in the base of the head with radiation of pain to the 4 head. Pain is provoked with bright lights, loud noises and hyperextension. Pain is alleviated with medications, injections in the past, ice, heat, weekly physical therapy treatments that ended February 2022, chiropractic treatments currently in a semi-monthly basis, daily home stretching regimen, sitting in a dark room and rest. Interventional pain procedures completed include BL NASIM injections Patient is currently on Emgality, Nutec, Voltaren gel, Toradol, Reglan Patient denies any side effects of the medication(s), denies excessive drowsiness or sleepiness, denies suicidal ideation and reports that the current pain medication is helping to control the pain and improve activities of daily living. Patient denies any motor or sensory deficits. Patient denies any fever or night sweats, denies any change in the bowel movements or urination. Physical Examination: -Constitutional: Cooperative. Not in acute distress . - Neurologic: Cranial nerve II to XII intact. No focal neurological deficits. - Psychatric: Alert & oriented x 3. Matching mood & appropriate affect. Judgment and insight intact. - Musculoskeletal: Cervical spine: +BL NASIM/ MK TTP Muscle bulk/ tone/ strength in the bilateral upper extremities normal Vertebral body tenderness to palpation over Spurling test positive Distraction test positive Facet loading test positive Thoracic spine Muscle bulk / tone/ strength in the bilateral paraspinal muscles normal Vertebral body tender to palpation over Facet loading test positive Lumbar spine: Motor bulk/ tone/ strength lower extremities , thigh and legs : 5/5 Deep tendon reflexes : Normal Knee Jerk. Normal Ankle Jerk . Vertebral body tenderness to palpation over Lumbar Facet Loading Test positive Straight Leg Raise: positive at 30 degrees right side/ left side Gaenslen's Test positive Sacral spine : Severe tenderness over the Sacroiliac joint: right side / left side Range of motion: Flexion of the lumbar spine <60 degrees Range of motion: Extension of the lumbar spine <20 degrees Gaenslen's Test positive John's Test positive Mariam test: positive right side / left side Thigh Thrust Test Sacral Thrust Test Assessment and plan: Chronic neck pain & MCCALLUM secondary to BL occipital neuralgia Recommendation of BL NASIM/ MK injections. May need a series, up to 3 within a 6 mo time frame, for optimal pain relief. Risks, benefits of procedure discussed and pt verbalized understanding. Denies anticoagulant use or medical history of diabetes. All patient questions answered MAPS reviewed and it was appropriate. Prescription refill for Nurtec prn, Toradol 10mL TID prn, Reglan, insulin syringes to use w Toradol, Emgality subQ monthly, Voltaren gel prn w 1 refill I have spent less than 30 minutes on patient care today. Dr Sung was available by phone for the evaluation of this patient. The time was used to review the medical records including relevant urine studies and Prescription history (MAPs), review of the available imaging, evaluation and examination of the patient, coordination of care with the medical staff and if applicable referring physicians, as well as creation of the medical record - Pain Location Upper Neck Non-Pharmacological Interventions: Chiropractic Treatment, Darkened Room, Exercise, Heat, Home Exercise, Ice, Inactivity, Physical Therapy, Relaxation Technique Pharmacological Interventions: Block, Epidural, Medication, PRN Medication, Scheduled Medication, Topical Medication PQRS Narrative: Smoking Status Never smoker Hx Alcohol Use (MH) No Home Medications: Ambulatory Orders Atomoxetine HCl [Strattera] 80 mg PO QAM 11/16/14 Divalproex [Depakote] 250 mg PO BID 11/16/14 Folic Acid 1 mg PO DAILY 11/16/14 carBAMazepine CHEW [TEGretol Chew] 100 mg PO HS 11/16/14 carBAMazepine [TEGretol] 200 mg PO 1200 11/16/14 carBAMazepine [TEGretol] 200 mg PO AC-BRKFST 11/16/14 fluvoxaMINE MALEATE [Luvox] 100 mg PO HS 11/16/14 fluvoxaMINE MALEATE [Luvox] 200 mg PO QAM 11/16/14 lamoTRIgine [LaMICtal] 100 mg PO BID 11/16/14 Cholecalciferol [Vitamin D3 (25 Mcg = 1000 Iu)] 25 mcg PO DAILY 12/15/21 Diclofenac Sodium Gel [Voltaren Gel] 4 gm TOPICAL BID PRN 30 Days #100 gm 06/04/22 Galcanezumab-Gnlm [Emgality Syringe] 300 mg SQ QMONTHLY 30 Days #1 each 06/04/22 Ketorolac [Toradol] 10 mg IM Q8HR PRN 30 Days #60 ml 06/04/22 Metoclopramide [Reglan] 10 mg PO TID PRN 30 Days #60 tab 06/04/22 Rimegepant Sulfate [Nurtec Odt] 75 mg SL DIRECTED PRN 30 Days #15 tab 06/04/22 Syringe and Needle,Insulin,1Ml [Insulin Syringe 28G 1/2" 1ML] 1 syr SQ DIRECTED 30 Days #60 each 06/04/22 Controlled Substance Measures - Controlled Substance Measures Is patient prescribed a controlled substance at discharge?: No
== END ==
LOC: PNWHC3 09:52
PROVIDERS: ATTEND Specialist
DX: M54.81 Occipital neuralgia (principal); G89.29 Other chronic pain; Z88.1 Allergy status to other antibiotic agents; Z91.041 Radiographic dye allergy status; Z88.0 Allergy status to penicillin; Z88.5 Allergy status to narcotic agent; Z88.8 Allergy status to other drugs, medicaments and biological substances
CPT/HCPCS: 99211

== ENCOUNTER 2022-06-14 09:46 | Day surgery (SDC) | payer OTHER ==
[2022-06-12 15:38] VITALS: BMI 23.9
[2022-06-14 10:52] VITALS: TEMP 98.2
[2022-06-14] MEDS ORDERED: LACTATED RINGERS 1,000 ML IV ONE (10:54)
[2022-06-14] MEDS ORDERED: ROPIVACAINE 5MG/ML 20ML VIAL ONE (11:15)
[2022-06-14] MEDS ORDERED: methylPREDNISolone ACETATE 80 MG/ML 1 ML VIAL ONE (11:15)
[2022-06-14] MEDS ORDERED: MIDAZOLAM 2 MG/2 ML VIAL ONE (11:15)
--- NOTE | 2022-06-14 11:44 | P.PCN ---
Date of Procedure: 06/14/22 Procedure(s) Performed: Preoperative diagnoses= 1- Greater occipital neuralgia. 2-lesser occipital neuralgia. 3-cervical spondylosis Postoperative diagnoses= same as preoperative diagnosis. Procedure= Bilateral Greater occipital nerve block. Bilateral lesser occipital nerve block Anesthesia= moderate sedation with Versed 2 mg ,and local infiltration with lidocaine 1% 4 ml Sedation the start time 11:19, sedation stop time 11:39 Estimated blood loss=minimal. Procedure indication= the patient had a history of severe chronic neck pain ,and headache, diagnosed with occipital neuralgia exam was positive for severe tenderness over the occipital nerve bilaterally, she will be a good candidate occipital nerve block, patient failed conservative management Procedure description= the patient was seen and identified in the preoperative holding area, risks and benefits and alternative of the procedure and possible complications discussed with the patient, and he agreed with the preceding, patient signed the consent, an IV was started, and vital signs were monitored and were stable throughout the procedure, patient was placed in the sitting position or table and the neck area was prepped and draped with a sterile fashion, vital signs were closely monitored during the procedure, 25-gauge needle advanced 1 inch lateral to the occipital protuberance on the right side, at the location of the right greater occipital nerve , then after negative aspiration for heme and CSF and there was no paresthesia during the injection, 6 ml of Robivacaine 0.5% and 20 mg of Depo-Medrol injected after negative aspiration, then after that ,I did the right lesser occipital nerve block by advancing the needle more laterally towards the location of the lesser occipital nerve , then after negative aspiration ropivacaine 0.5% 2 mL and 20 mg of Depo- Medrol were injected in the location of the right lesser occipital nerve ,then the needle removed, and the entire same procedure was repeated for the left Greater occipital nerve, and left lesser occipital nerve Patient tolerated the procedure well without any complication, The patient returned to supine position after the back was cleaned and a Band- Aid applied, the patient transported to recovery room in stable condition and he was monitored for 30 minutes before he was discharged home and then patient was reexamined before going home and patient was discharged in stable condition and patient will follow up with the pain clinic in a few weeks.
[2022-06-14] MEDS ORDERED: IV FLUID CONTINUATION 1,000 ML IV ONE (11:45)
[2022-06-14] MEDS ORDERED: LIDOCAINE 1% (10MG/ML) FOR IV START INTRADERMA PRN (11:49)
[2022-06-14] MEDS ORDERED: LACTATED RINGERS 1,000 ML IV SCH (11:49)
[2022-06-14 11:51] VITALS: RESP 17
[2022-06-14 12:02] VITALS: BP 96/62; PULSE 80
== END 2022-06-14 12:15 | disposition home or self-care (01) ==
LOC: ORPAIN 09:46
PROVIDERS: ATTEND Specialist
DX: M54.81 Occipital neuralgia (principal); M47.812 Spondylosis without myelopathy or radiculopathy, cervical region; G89.29 Other chronic pain; Z88.0 Allergy status to penicillin; Z88.3 Allergy status to other anti-infective agents; Z88.8 Allergy status to other drugs, medicaments and biological substances; Z91.09 Other allergy status, other than to drugs and biological substances; Z79.899 Other long term (current) drug therapy; Z80.8 Family history of malignant neoplasm of other organs or systems
CPT/HCPCS: 81025; 64405; J2250; J1040; J2795; 99152

== ENCOUNTER → 2022-07-30 | Outpatient (CLI) | payer OTHER ==
[2022-07-30 10:37] VITALS: BP 111/72; PULSE 103; RESP 18; TEMP 98.5
--- NOTE | 2022-07-30 14:22 | P.PAINPG ---
PQRS Measure Charge Sheet Comment: A 37 yr old female w mother at side with a history of severe and chronic low back pain secondary to lumbar degenerative disc diseases and lumbar spondylosis with facet arthropathy without myelopathy presents today for evaluation s/p BL NASIM injection and medication refills. 90% pain relief x 9 wks s/p procedure. Pain level is currently at 7/10 in intensity, localized in the base of the head, intermittent throbbing in character w shooting towards the scalp. Pain is provoked by bright lights, stress, acute noises. Pain is alleviated with chiropractic treatments weekly and currently, heat, ice, medications, stretching, darkened room w rest. Will restart in PT in 1-2 months due to insurance issues. Interventional pain procedures completed include BL NASIM/ MK Patient is currently on Voltaren gel, Toradol home injections, Emgality Patient denies any side effects of the medication(s), denies excessive drowsiness or sleepiness, denies suicidal ideation and reports that the current pain medication is helping to control the pain and improve activities of daily living. Patient denies any motor or sensory deficits. Patient denies any fever or night sweats, denies any change in the bowel movements or urination. Physical Examination: -Constitutional: Cooperative. Not in acute distress . - Neurologic: Cranial nerve II to XII intact. No focal neurological deficits. - Psychatric: Alert & oriented x 3. Matching mood & appropriate affect. Judgment and insight intact. - Musculoskeletal: Cervical spine: +BL NASIM/ MK TTP Muscle bulk/ tone/ strength in the bilateral upper extremities normal Vertebral body tenderness to palpation over Spurling test positive Distraction test positive Facet loading test positive Thoracic spine Muscle bulk / tone/ strength in the bilateral paraspinal muscles normal Vertebral body tender to palpation over Facet loading test positive Lumbar spine: Motor bulk/ tone/ strength lower extremities , thigh and legs : 5/5 Deep tendon reflexes : Normal Knee Jerk. Normal Ankle Jerk . Vertebral body tenderness to palpation over Lumbar Facet Loading Test positive Straight Leg Raise: positive at 30 degrees right side/ left side Gaenslen's Test positive Sacral spine : Severe tenderness over the Sacroiliac joint: right side / left side Range of motion: Flexion of the lumbar spine <60 degrees Range of motion: Extension of the lumbar spine <20 degrees Gaenslen's Test positive John's Test positive Mariam test: positive right side / left side Thigh Thrust Test Sacral Thrust Test Assessment and plan: Chronic low back pain secondary to lumbar degenerative disc disease , lumbar spondylosis with facet arthropathy without myelopathy Recommenadtion of BL NASIM/MK injection #2. May need a series, up until RFA, for optimal pain relief. Risks, benefits of procedure discussed and pt verbalized understanding. Denies anticoagulant use or medical history of diabetes. All patient questions answered MAPS reviewed and it was appropriate. Prescription refill for Voltaren gel, Nurtec, Emgality, Reglan, Toradol, syringes and syringe tips w 1 RF I have spent less than 30 minutes on patient care today. Dr Sung was available by phone for the evaluation of this patient. The time was used to review the medical records including relevant urine studies and Prescription history (MAPs), review of the available imaging, evaluation and examination of the patient, coordination of care with the medical staff and if applicable referring physicians, as well as creation of the medical record - Pain Location Bilateral Upper Neck Non-Pharmacological Interventions: Chiropractic Treatment, Darkened Room, Heat, Ice, Inactivity, Physical Therapy, Stretching Pharmacological Interventions: Block, Medication, PRN Medication, Topical Medication PQRS Narrative: Smoking Status Never smoker Hx Alcohol Use (MH) No Home Medications: Ambulatory Orders Atomoxetine HCl [Strattera] 80 mg PO QAM 11/16/14 Folic Acid 1 mg PO DAILY 11/16/14 carBAMazepine [TEGretol] 200 mg PO 1200 11/16/14 carBAMazepine [TEGretol] 200 mg PO AC-BRKFST 11/16/14 fluvoxaMINE MALEATE [Luvox] 100 mg PO HS 11/16/14 fluvoxaMINE MALEATE [Luvox] 200 mg PO QAM 11/16/14 lamoTRIgine [LaMICtal] 100 mg PO BID 11/16/14 carBAMazepine [TEGretol] 100 mg PO HS 06/12/22 traZODone HCL [Desyrel] 150 mg PO HS 06/12/22 Diclofenac Sodium Gel [Voltaren Gel] 4 gm TOPICAL BID PRN 30 Days #100 gm 07/30/22 Galcanezumab-Gnlm [Emgality Syringe] 300 mg SQ QMONTHLY 30 Days #1 each 07/30/22 Ketorolac [Toradol] 10 mg IM Q8HR PRN 30 Days #60 ml 07/30/22 Metoclopramide [Reglan] 10 mg PO TID PRN 30 Days #60 tab 07/30/22 Rimegepant Sulfate [Nurtec Odt] 75 mg SL DIRECTED PRN 30 Days #15 tab 07/30/22 Controlled Substance Measures - Controlled Substance Measures Is patient prescribed a controlled substance at discharge?: No
== END ==
LOC: PNWHC3 10:05
PROVIDERS: ATTEND Specialist
DX: M51.36 Other intervertebral disc degeneration, lumbar region (principal); M47.816 Spondylosis without myelopathy or radiculopathy, lumbar region; G89.29 Other chronic pain; Z88.0 Allergy status to penicillin; Z88.1 Allergy status to other antibiotic agents; Z88.5 Allergy status to narcotic agent; Z91.041 Radiographic dye allergy status; Z88.8 Allergy status to other drugs, medicaments and biological substances
CPT/HCPCS: 99211

== ENCOUNTER 2022-08-09 09:06 | Day surgery (SDC) | payer OTHER ==
[2022-08-08 10:17] VITALS: BMI 24.7
[2022-08-09 09:41] VITALS: RESP 16; TEMP 97.9
[2022-08-09] MEDS ORDERED: LACTATED RINGERS 1,000 ML IV ONE (09:55)
[2022-08-09] MEDS ORDERED: LIDOCAINE 1% (10MG/ML) FOR IV START INTRADERMA ONE (09:55)
[2022-08-09] MEDS ORDERED: MIDAZOLAM 2 MG/2 ML VIAL ONE (10:06)
[2022-08-09] MEDS ORDERED: methylPREDNISolone ACETATE 40 MG/ML 1 ML VIAL ONE (10:06)
[2022-08-09] MEDS ORDERED: ROPIVACAINE 5 MG/ML 20 ML AMPULE ONE (10:06)
--- NOTE | 2022-08-09 10:17 | P.PCN ---
Date of Procedure: 08/09/22 Procedure(s) Performed: Procedure(s) Performed: Preoperative diagnoses= 1- Greater occipital neuralgia. 2-lesser occipital neuralgia. 3-cervical spondylosis Postoperative diagnoses= same as preoperative diagnosis. Procedure= Bilateral Greater occipital nerve block. Bilateral lesser occipital nerve block Anesthesia= moderate sedation with Versed 2 mg ,and local infiltration with lid ocaine 1% 4 ml Sedation the start time 10:08, sedation stop time 10:15 Estimated blood loss=minimal. Procedure indication= the patient had a history of severe chronic neck pain ,and headache, diagnosed with occipital neuralgia exam was positive for severe tenderness over the occipital nerve bilaterally, she will be a good candidate occipital nerve block, patient failed conservative management Procedure description= the patient was seen and identified in the preoperative holding area, risks and benefits and alternative of the procedure and possible complications discussed with the patient, and he agreed with the preceding, patient signed the consent, an IV was started, and vital signs were monitored and were stable throughout the procedure, patient was placed in the sitting position or table and the neck area was prepped and draped with a sterile fashion, vital signs were closely monitored during the procedure, 25-gauge needle advanced 1 inch lateral to the occipital protuberance on the right side, at the location of the right greater occipital nerve , then after negative aspiration for heme and CSF and there was no paresthesia during the injection, 6 ml of Robivacaine 0.5% and 20 mg of Depo-Medrol injected after negative aspiration, then after that ,I did the right lesser occipital nerve block by advancing the needle more laterally towards the location of the lesser occipital nerve , then after negative aspiration ropivacaine 0.5% 2 mL and 20 mg of Depo- Medrol were injected in the location of the right lesser occipital nerve ,then the needle removed, and the entire same procedure was repeated for the left Greater occipital nerve, and left lesser occipital nerve Patient tolerated the procedure well without any complication, The patient returned to supine position after the back was cleaned and a Band- Aid applied, the patient transported to recovery room in stable condition and he was monitored for 30 minutes before he was discharged home and then patient was reexamined before going home and patient was discharged in stable condition and patient will follow up with the pain clinic in a few weeks.
[2022-08-09] MEDS ORDERED: IV FLUID CONTINUATION 1,000 ML IV ONE (10:21)
[2022-08-09 10:41] VITALS: BP 104/69; PULSE 86
== END 2022-08-09 10:55 | disposition home or self-care (01) ==
LOC: ORPAIN 09:06
PROVIDERS: ATTEND Specialist
DX: M54.81 Occipital neuralgia (principal); M47.812 Spondylosis without myelopathy or radiculopathy, cervical region
CPT/HCPCS: 81025; 64450; 64405; J2250; J1030; J2795

== ENCOUNTER → 2022-09-24 | Outpatient (CLI) | payer OTHER ==
[2022-09-24 10:24] VITALS: BP 106/70; PULSE 97; RESP 16
--- NOTE | 2022-09-24 14:49 | P.PAINPG ---
PQRS Measure Charge Sheet Comment: A 37 yr old female w mother at side with a history of severe and chronic HAs secondary to occipital neuralgia and cervicogenic MCCALLUM presents today for evaluation s/p BL NASIM injection. Pt states she experienced 70% pain relief x 3 wks s/p procedure. Pain level is currently at 9/10 in intensity, constant, sh ofelia/ throbbing in character w shooting towards the L scapulae. Pain is provoked by . Pain is alleviated with PT in 2020, home exercise daily, chiropractic treatments every 2-3 wks, heat, ice, medications, topicals, injections, repositioning and rest. Interventional pain procedures completed include BL NASIM Patient is currently on Toradol, Nurtec, Emgality, Reglan, Voltaren gel Patient denies any side effects of the medication(s), denies excessive drowsiness or sleepiness, denies suicidal ideation and reports that the current pain medication is helping to control the pain and improve activities of daily living. Patient denies any motor or sensory deficits. Patient denies any fever or night sweats, denies any change in the bowel movements or urination. Physical Examination: -Constitutional: Cooperative. Not in acute distress . - Neurologic: Cranial nerve II to XII intact. No focal neurological deficits. - Psychatric: Alert & oriented x 3. Matching mood & appropriate affect. Judgment and insight intact. - Musculoskeletal: Cervical spine: Mild TTP over BL NASIM Muscle bulk/ tone/ strength in the bilateral upper extremities normal Vertebral body tenderness to palpation over Spurling test positive Distraction test positive Facet loading test positive Thoracic spine Muscle bulk / tone/ strength in the bilateral paraspinal muscles normal Vertebral body tender to palpation over Facet loading test positive Lumbar spine: Motor bulk/ tone/ strength lower extremities , thigh and legs : 5/5 Deep tendon reflexes : Normal Knee Jerk. Normal Ankle Jerk . Vertebral body tenderness to palpation over Lumbar Facet Loading Test positive Straight Leg Raise: positive at 30 degrees right side/ left side Gaenslen's Test positive Sacral spine : Severe tenderness over the Sacroiliac joint: right side / left side Range of motion: Flexion of the lumbar spine <60 degrees Range of motion: Extension of the lumbar spine <20 degrees Gaenslen's Test positive Mariam test: positive right side / left side Thigh Thrust Test Sacral Thrust Test Assessment and plan: Chronic MCCALLUM pain secondary to occipital neuralgia and cervicogenic MCCALLUM Chronic and current use of high-risk medication (Opioids). The patient was counseled about risk of opioid use, psychological risk associated with opioids and was orally counseled to not overuse , divert or sell medications. Pt is to store medication in a safe location. The patient is counseled against driving while using narcotic medications and also not to use alcohol or any illicit recreational drugs. Patient verbalized understanding that the lack of compliance will result in failure to renew narcotic prescription(s) as well as possible discharge from the clinic Diagnoses, prognosis and treatment options including but not limited to physical therapy, surgical interventions, interventional therapies and medication management including narcotics and adjuvant medication were discussed. All patient questions answered MAPS reviewed and it was appropriate. Prescription refill for Toradol, Nurtec, Emgality, Reglan, Voltaren gel w 1 RF I have spent less than 30 minutes on patient care today. Dr Sung was available by phone for the evaluation of this patient. The time was used to review the medical records including relevant urine studies and Prescription history (MAPs), review of the available imaging, evaluation and examination of the patient, coordination of care with the medical staff and if applicable referring physicians, as well as creation of the medical record PQRS Narrative: Smoking Status Never smoker Hx Alcohol Use (MH) No Home Medications: Ambulatory Orders Atomoxetine HCl [Strattera] 80 mg PO QAM 11/16/14 Folic Acid 1 mg PO DAILY 11/16/14 carBAMazepine [TEGretol] 200 mg PO 1200 11/16/14 carBAMazepine [TEGretol] 200 mg PO AC-BRKFST 11/16/14 fluvoxaMINE MALEATE [Luvox] 100 mg PO HS 11/16/14 fluvoxaMINE MALEATE [Luvox] 200 mg PO QAM 11/16/14 lamoTRIgine [LaMICtal] 100 mg PO BID 11/16/14 carBAMazepine [TEGretol] 100 mg PO HS 06/12/22 traZODone HCL [Desyrel] 150 mg PO HS 06/12/22 Diclofenac Sodium Gel [Voltaren Gel] 4 gm TOPICAL BID PRN 30 Days #100 gm 09/24/22 Galcanezumab-Gnlm [Emgality Syringe] 300 mg SQ QMONTHLY 30 Days #1 each 09/24/22 Ketorolac [Toradol] 10 mg IM Q8HR PRN 30 Days #60 ml 09/24/22 Metoclopramide [Reglan] 10 mg PO TID PRN 30 Days #60 tab 09/24/22 Rimegepant Sulfate [Nurtec Odt] 75 mg SL DIRECTED PRN 30 Days #15 tab 09/24/22 Controlled Substance Measures - Controlled Substance Measures Is patient prescribed a controlled substance at discharge?: No
== END ==
LOC: PNWHC3 09:44
PROVIDERS: ATTEND Specialist
DX: M54.81 Occipital neuralgia (principal); Z79.891 Long term (current) use of opiate analgesic; Z88.5 Allergy status to narcotic agent; Z88.1 Allergy status to other antibiotic agents; Z91.041 Radiographic dye allergy status; Z88.0 Allergy status to penicillin; Z88.8 Allergy status to other drugs, medicaments and biological substances; Z91.048 Other nonmedicinal substance allergy status
CPT/HCPCS: 99211

== ENCOUNTER 2022-10-25 12:04 | Day surgery (SDC) | payer OTHER ==
[2022-10-23 10:27] VITALS: BMI 23.3
[~2022-10-25 12:04] MED LIST changes: -LACTATED RINGERS 1,000 ML IV ONE; +LACTATED RINGERS 1,000 ML IV SCH; -LIDOCAINE 1% (10MG/ML) FOR IV START INTRADERMA ONE; +LIDOCAINE 1% (10MG/ML) FOR IV START INTRADERMA PRN; -LIDOCAINE 1% INJ 10MG/ML (20 ML MDV) ONE; -MIDAZOLAM 2 MG/2 ML VIAL ONE; -ROPIVACAINE 5MG/ML 20ML VIAL ONE; -fentaNYL (PF) 50 MCG/ML 2 ML AMP ONE
[2022-10-25 13:24] VITALS: RESP 16
[2022-10-25] MEDS ORDERED: MIDAZOLAM 2 MG/2 ML VIAL ONE (14:12)
[2022-10-25] MEDS ORDERED: fentaNYL (PF) 50 MCG/ML 2 ML AMP ONE (14:12)
--- NOTE | 2022-10-25 14:22 | P.PCN ---
Date of Procedure: 10/25/22 Procedure(s) Performed: Preoperative diagnoses= 1- Greater occipital neuralgia. 2-cervicogenic headache Postoperative diagnoses= same as preoperative diagnosis. Procedure= Bilateral Greater occipital nerve block Anesthesia= moderate sedation with Versed 2 mg and fentanyl 50 micrograms Sedation start time : 1415 . Sedation end time : 1419 . Estimated blood loss=minimal. Procedure indication= the patient had a history of severe chronic neck pain ,and headache, diagnosed with occipital neuralgia exam was positive for severe tenderness over the occipital nerve bilaterally, she will be a good candidate occipital nerve block, patient failed conservative management Procedure description= the patient was seen and identified in the preoperative holding area, risks and benefits and alternative of the procedure and possible complications discussed with the patient, and he agreed with the preceding, patient signed the consent, an IV was started, and vital signs were monitored and were stable throughout the procedure, patient was placed in the sitting position or table and the neck area was prepped and draped with a sterile fashion, vital signs were closely monitored during the procedure, 25-gauge needle advanced 1 inch lateral to the occipital protuberance on the right side, at the location of the right occipital nerve , then after negative aspiration for heme and CSF and there was no paresthesia during the injection, 6 ml of Robivacaine 0.5% and 40 mg of Depo-Medrol injected after negative aspiration, the needle removed, and the entire same procedure was repeated for the left Greater occipital nerve. Patient tolerated the procedure well without any complication, The patient returned to supine position after the back was cleaned and a Band- Aid applied, the patient transported to recovery room in stable condition and he was monitored for 30 minutes before he was discharged home and then patient was reexamined before going home and patient was discharged in stable condition and patient will follow up with the pain clinic in a few weeks.
[2022-10-25] MEDS ORDERED: IV FLUID CONTINUATION 1,000 ML IV ONE (14:24)
[2022-10-25 14:51] VITALS: BP 116/74; PULSE 91
== END 2022-10-25 14:54 | disposition home or self-care (01) ==
LOC: ORPAIN 12:04
PROVIDERS: ATTEND Specialist
DX: M54.81 Occipital neuralgia (principal); G44.86 Cervicogenic headache; G89.29 Other chronic pain
CPT/HCPCS: 81025; 64405; J2250; J3010

== ENCOUNTER 2022-11-14 18:05 | Emergency (ER) | payer OTHER ==
[2022-11-14 18:09] VITALS: TEMP 98.3
[2022-11-14] MEDS ORDERED: SODIUM CHLORIDE 0.9% 500 ML 500 ML IV STA (19:18)
--- NOTE | 2022-11-14 19:25 | ED ---
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 She does have history of seizure disorder. Mother is at bedside and states that the patient has not had a seizure in 10 years. She takes Lamictal and Tegretol. She has not missed any doses. Today the patient's was helping her mother wash the bedding. They attempted to walk outside when she heard a thump on the ground. She went outside to find the patient seizing. Seizure lasted for approximately 10 minutes. She denies hitting her head. Does admit to a hea doc at this time. They report that the patient was started on Seroquel for sleep. She just started taking this medication. Mother is concerned about interaction between them. Denies fevers or chills. No visual changes. No signs or symptoms of urinary tract infection. She denies any chest pain or shortness of breath. Denies any injury from the seizure. No other alleviating, precipitating or modifying factors - Related Data Home Medications Medication Instructions Recorded Confirmed Atomoxetine HCl [Strattera] 80 mg PO QAM 11/16/14 10/25/22 Folic Acid 1 mg PO DAILY 11/16/14 10/25/22 carBAMazepine [TEGretol] 200 mg PO 1200 11/16/14 10/25/22 carBAMazepine [TEGretol] 200 mg PO AC-BRKFST 11/16/14 10/25/22 fluvoxaMINE MALEATE [Luvox] 100 mg PO HS 11/16/14 10/25/22 fluvoxaMINE MALEATE [Luvox] 200 mg PO QAM 11/16/14 10/25/22 lamoTRIgine [LaMICtal] 100 mg PO BID 11/16/14 10/25/22 carBAMazepine [TEGretol] 100 mg PO HS 06/12/22 10/25/22 traZODone HCL [Desyrel] 150 mg PO HS 06/12/22 10/25/22 Previous Rx's Medication Instructions Recorded Diclofenac Sodium Gel [Voltaren 4 gm TOPICAL BID PRN 30 Days #100 09/24/22 Gel] gm Galcanezumab-Gnlm [Emgality 300 mg SQ QMONTHLY 30 Days #1 each 09/24/22 Syringe] Ketorolac [Toradol] 10 mg IM Q8HR PRN 30 Days #60 ml 09/24/22 Metoclopramide [Reglan] 10 mg PO TID PRN 30 Days #60 tab 09/24/22 Rimegepant Sulfate [Nurtec Odt] 75 mg SL DIRECTED PRN 30 Days 09/24/22 #15 tab diazePAM [Diastat] 10 mg RECTAL ONCE PRN #2 kit 11/14/22 Allergies Allergy/AdvReac Type Severity Reaction Status Date / Time cephalexin monohydrate Allergy Rash/Hives Verified 10/25/22 13:13 [From Keflex] codeine Allergy SEVERE Verified 10/25/22 13:13 HEADACHE,NAUSEA iodine Allergy blisters Verified 10/25/22 13:13 meperidine [From Demerol] Allergy SEVERE Verified 10/25/22 13:13 HEADACHE AND NAUSEA AND VOMITING morphine Allergy "blood Verified 10/25/22 13:13 pressure bottomed out" Penicillins Allergy Rash/Hives Verified 10/25/22 13:13 povidone-iodine Allergy Rash/Hives Verified 10/25/22 13:13 [From Betadine] soap [From Betadine] Allergy Rash/Hives Verified 10/25/22 13:13 Review of Systems ROS Statement: Those systems with pertinent positive or pertinent negative responses have been documented in the HPI. ROS Other: All systems not noted in ROS Statement are negative. 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 Recent worsening headache/migraine. History of Any Multi-Drug Resistant Organisms: None Reported Past Surgical History: Hernia Repair, Orthopedic Surgery, Uterine Ablation Additional Past Surgical History / Comment(s): DEBI FUNDOPLASTY, MULTIPLE OR THOPEDIC SURGERIES, RIGHT HAND AND WRIST SURGERY WITH PLATE IN RIGHT WRIST, RIGHT POST TIBIAL TENDON TRANSFER, pain clinic procedures. Past Anesthesia/Blood Transfusion Reactions: No Reported Reaction Past Psychological History: Depression Smoking Status: Never smoker Past Alcohol Use History: None Reported Past Drug Use History: None Reported - Past Family History Mother Family Medical History: Cancer Additional Family Medical History / Comment(s): BASAL CELL SKIN CANCER. General Exam Limitations: physical limitation General appearance: alert, in no apparent distress Head exam: Present: atraumatic, normocephalic, normal inspection Eye exam: Present: normal appearance, PERRL, EOMI. Absent: scleral icterus, conjunctival injection, periorbital swelling ENT exam: Present: normal exam, mucous membranes moist Neck exam: Present: normal inspection. Absent: tenderness, meningismus, lymphadenopathy Respiratory exam: Present: normal lung sounds bilaterally. Absent: respiratory distress, wheezes, rales, rhonchi, stridor Cardiovascular Exam: Present: regular rate, normal rhythm, normal heart sounds. Absent: systolic murmur, diastolic murmur, rubs, gallop, clicks GI/Abdominal exam: Present: soft, normal bowel sounds. Absent: distended, tende rness, guarding, rebound, rigid Extremities exam: Present: normal capillary refill, other (right hemiparesis with muscle atrophy). Absent: tenderness, pedal edema, joint swelling, calf tenderness Back exam: Present: normal inspection Neurological exam: Present: alert, oriented X3, CN II-XII intact Psychiatric exam: Present: normal affect, normal mood Skin exam: Present: warm, dry, intact, normal color. Absent: rash Course Vital Signs 11/14/22 11/14/22 11/14/22 18:07 19:53 21:25 Temperature 98.3 F Pulse Rate 82 88 80 Respiratory 18 16 18 Rate Blood Pressure 108/55 116/68 91/54 O2 Sat by Pulse 100 100 100 Oximetry Medical Decision Making - Medical Decision Making Was pt. sent in by a medical professional or institution? no Did you speak to anyone other than the patient for history? mother Did you review nursing and triage notes? yes and I agree Were old charts reviewed? no Differential Diagnosis? MDM Differential Seizure: Recurrent seizure disorder, febrile seizure, alcohol withdrawal, stimulants, meningitis, encephalitis, intercranial hemorrhage, intracranial tumor, stroke, eclampsia, thyrotoxicosis, hypocalcemia, hyponatremia, hypernatremia, hypomagnes emia, psychogenic this is not meant to be an all-inclusive list EKG interpreted by me (3pts min.)? yes X-rays interpreted by me (1pt min.)? yes CT interpreted by me (1pt min.)? yes U/S interpreted by me (1pt. min.)? no What testing was considered but not performed? (CT, X-rays, U/S, labs)? Why? none What meds were considered but not given? Why? none Did you discuss the management of the patient with other professionals? Dr. Vincent Did you reconcile home meds? yes Was smoking cessation discussed for >3mins.? no Was critical care preformed (if so, how long)? no Were there social determinants of health that impacted care today? How? (Homelessness, low income, unemployed, alcoholism, drug addiction, silvreman sportation, low edu. Level, literacy, decrease access to med. care, [place] [facility], rehab)? no Was there de-escalation of care discussed even if they declined? (Discuss DNR or withdrawal of care, Hospice)? no What co-morbidities impacted this encounter? (DM, HTN, Smoking, COPD, CAD, Cancer, CVA, Hep., AIDS, mental health diagnosis, sleep apnea, morbid obesity)? CVA, spastic CP, seizure disorder Was patient admitted / discharged? Upon arrival patient is placed into room 1. A thorough history and physical exam was performed. IV was established laboratory studies are conducted. Patient has no trauma from the seizure. Laboratory studies are reviewed. Tegretol level is elevated at 15.6. CT is performed of the patient's brain as it has been a significant period of time since the patient had a breakthrough seizure. CT demonstrates areas of encephalomalacia however no new findings. Results are discussed the patient. I did discuss the results with Dr. Barnes. He states that the patient should be removed from Seroquel at this time. She should hold her dose of night time Tegretol. Resume her Tegretol tomorrow. She needs to have repeat blood work obtained as well as an EEG. Patient and mother were agreeable to having this done outpatient. They need to follow-up with Dr. Lawton within the next couple of days. Stop taking the Seroquel indefinitely. They will be called with culture results from the urine. Return for any new or worsening symptoms. Patient and mother were agreeable to the treatment plan and the patient was discharged in stable condition Undiagnosed new problem with uncertain prognosis? yes Drug Therapy requiring intensive monitoring for toxicity (Heparin, Nitro, Insulin, Cardizem)? no Were any procedures done? no Diagnosis/symptom? acute breakthrough seizure Acute, or Chronic, or Acute on Chronic? acute Uncomplicated (without systemic symptoms) or Complicated (systemic symptoms)? complicated Side effects of treatment? none Exacerbation, Progression, or Severe Exacerbation] no Poses a threat to life or bodily function? yes Diagnosis/symptom? acute tegretol toxicity Acute, or Chronic, or Acute on Chronic? acute Uncomplicated (without systemic symptoms) or Complicated (systemic symptoms)? complicated Side effects of treatment? none Exacerbation, Progression, or Severe Exacerbation] no Poses a threat to life or bodily function? yes - Lab Data Result diagrams: 11/14/22 19:33 11/14/22 19:33 Lab Results 11/14/22 11/14/22 11/14/22 Range/Units 19:29 19:33 19:33 WBC 3.9 (3.8-10.6) k/uL RBC 4.05 (3.80-5.40) m/uL Hgb 12.9 (11.4-16.0) gm/dL Hct 38.3 (34.0-46.0) % MCV 94.5 (80.0-100.0) fL MCH 31.8 (25.0-35.0) pg MCHC 33.6 (31.0-37.0) g/dL RDW 12.4 (11.5-15.5) % Plt Count 179 (150-450) k/uL MPV 8.4 Neutrophils % 71 % Lymphocytes % 23 % Monocytes % 5 % Eosinophils % 1 % Basophils % 0 % Neutrophils # 2.8 (1.3-7.7) k/uL Lymphocytes # 0.9 L (1.0-4.8) k/uL Monocytes # 0.2 (0-1.0) k/uL Eosinophils # 0.0 (0-0.7) k/uL Basophils # 0.0 (0-0.2) k/uL Sodium 138 (137-145) mmol/L Potassium 3.8 (3.5-5.1) mmol/L Chloride 106 (98-107) mmol/L Carbon Dioxide 26 (22-30) mmol/L Anion Gap 6 mmol/L BUN 13 (7-17) mg/dL Creatinine 0.44 L (0.52-1.04) mg/dL Est GFR (CKD-EPI)AfAm >90 (>60 ml/min/1.73 sqM) Est GFR (CKD-EPI)NonAf >90 (>60 ml/min/1.73 sqM) Glucose 79 (74-99) mg/dL Calcium 8.5 (8.4-10.2) mg/dL Magnesium 2.1 (1.6-2.3) mg/dL Total Bilirubin 0.4 (0.2-1.3) mg/dL AST 19 (14-36) U/L ALT 15 (4-34) U/L Alkaline Phosphatase 74 (38-126) U/L Total Protein 7.1 (6.3-8.2) g/dL Albumin 4.2 (3.5-5.0) g/dL Urine Color Yellow Urine Appearance Cloudy H (Clear) Urine pH 5.5 (5.0-8.0) Ur Specific Weidman 1.024 (1.001-1.035) Urine Protein Trace H (Negative) Urine Glucose (UA) Negative (Negative) Urine Ketones Trace H (Negative) Urine Blood Small H (Negative) Urine Nitrite Negative (Negative) Urine Bilirubin Negative (Negative) Urine Urobilinogen <2.0 (<2.0) mg/dL Ur Leukocyte Esterase Negative (Negative) Urine RBC 3 (0-5) /hpf Urine WBC 4 (0-5) /hpf Ur Squamous Epith Cells 14 H (0-4) /hpf Urine Bacteria Moderate H (None) /hpf Hyaline Casts 3 H (0-2) /lpf Urine Mucus Many H (None) /hpf Carbamazepine 15.6 H* ug/mL Lamotrigine (2.0-15.0) ug/mL 11/14/22 Range/Units 19:33 WBC (3.8-10.6) k/uL RBC (3.80-5.40) m/uL Hgb (11.4-16.0) gm/dL Hct (34.0-46.0) % MCV (80.0-100.0) fL MCH (25.0-35.0) pg MCHC (31.0-37.0) g/dL RDW (11.5-15.5) % Plt Count (150-450) k/uL MPV Neutrophils % % Lymphocytes % % Monocytes % % Eosinophils % % Basophils % % Neutrophils # (1.3-7.7) k/uL Lymphocytes # (1.0-4.8) k/uL Monocytes # (0-1.0) k/uL Eosinophils # (0-0.7) k/uL Basophils # (0-0.2) k/uL Sodium (137-145) mmol/L Potassium (3.5-5.1) mmol/L Chloride (98-107) mmol/L Carbon Dioxide (22-30) mmol/L Anion Gap mmol/L BUN (7-17) mg/dL Creatinine (0.52-1.04) mg/dL Est GFR (CKD-EPI)AfAm (>60 ml/min/1.73 sqM) Est GFR (CKD-EPI)NonAf (>60 ml/min/1.73 sqM) Glucose (74-99) mg/dL Calcium (8.4-10.2) mg/dL Magnesium (1.6-2.3) mg/dL Total Bilirubin (0.2-1.3) mg/dL AST (14-36) U/L ALT (4-34) U/L Alkaline Phosphatase (38-126) U/L Total Protein (6.3-8.2) g/dL Albumin (3.5-5.0) g/dL Urine Color Urine Appearance (Clear) Urine pH (5.0-8.0) Ur Specific Weidman (1.001-1.035) Urine Protein (Negative) Urine Glucose (UA) (Negative) Urine Ketones (Negative) Urine Blood (Negative) Urine Nitrite (Negative) Urine Bilirubin (Negative) Urine Urobilinogen (<2.0) mg/dL Ur Leukocyte Esterase (Negative) Urine RBC (0-5) /hpf Urine WBC (0-5) /hpf Ur Squamous Epith Cells (0-4) /hpf Urine Bacteria (None) /hpf Hyaline Casts (0-2) /lpf Urine Mucus (None) /hpf Carbamazepine ug/mL Lamotrigine 4.3 (2.0-15.0) ug/mL - EKG Data EKG Comments: EKG demonstrates sinus rhythm with rate of 81. IN interval 163. QRS 95. QTC of 400. No acute ST segment elevations or depressions Disposition Clinical Impression: Tegretol toxicity, Breakthrough seizure Disposition: HOME SELF-CARE Condition: Stable Instructions (If sedation given, give patient instructions): Recurrent Seizures in Adults (ED) Additional Instructions: Stop taking the Seroquel. Do not take your nighttime dose of Tegretol. Follow- up with the neurologist for EEG and repeat Tegretol level. We will call you with results of your urinalysis if it is abnormal Prescriptions: diazePAM [Diastat] 10 mg RECTAL ONCE PRN #2 kit PRN Reason: Seizures Is patient prescribed a controlled substance at d/c from ED?: Yes When asked, does pt state using other controlled substances?: No Referrals: Pietro Sparks III, MD [Primary Care Provider] - 1-2 days Susanna Major MD [Family Provider] - 1-2 days Time of Disposition: 21:03
[2022-11-14 19:52] LABS: Appearance,Urine Cloudy (Clear); Bacteria,Urine Moderate /hpf; Bilirubin,Urine Negative (Negative); Blood,Urine Small (Negative); Color,Urine Yellow; Glucose,Urine (UA) Negative (Negative); Hyaline Casts,Urine 3 /lpf (0-2); Ketones,Urine Trace (Negative); Leukocyte Esterase,Urine Negative (Negative); Mucus,Urine Many /hpf; Nitrite,Urine Negative (Negative); PH, Urine 5.5 (5.0-8.0); Protein,Urine Trace (Negative); RBC,Urine 3 /hpf (0-5); Specific Gravity,Urine 1.024 (1.001-1.035); Squamous Epithelial Cell,Urine 14 /hpf (0-4); Urobilinogen,Urine <2.0 mg/dL (<2.0); WBC,Urine 4 /hpf (0-5)
--- NOTE | 2022-11-14 20:07 | CT ---
EXAMINATION TYPE: CT brain cspine wo con CT DLP: 1168.4 mGycm, Automated exposure control for dose reduction was used. DATE OF EXAM: 11/14/2022 7:39 PM COMPARISON: MR brain 02/07/2020 12/26/[address] 09/29/2019 CLINICAL INDICATION:Female, 37 years old with history of seizure, fall; seizure, fall TECHNIQUE: Brain: Multiple axial CT images of the brain were obtained without IV contrast. Cspine: Axial CT images from the skull base to the inferior aspect of T2 we obtained without intraven ous contrast. Coronal and sagittal reformatted images were also reviewed. FINDINGS: Overall similar findings of the current calvarium with remote injury to the left cerebrum with out si gnificant change in back to 2019. The archer-white junctions are well differentiated otherwise without evidence of mass. Soft tissues are grossly unremarkable. The globes are intact. Paranasal sinuses dem onstrate no significant mucosal thickening. The mastoid air cells are clear. Intracranial vasculature is grossly unremarkable. Fracture: None. Osseous structures: Unremarkable Vertebral alignment: Within normal limits. Spinal canal/Neural Foramina: No evidence of significant spinal canal narrowing. No evidence for sign ificant neural foraminal stenosis. Neck soft tissues: Prevertebral soft tissues are within normal limits. Other: The airway is patent. The lung apices are clear. IMPRESSION: 1. Essentially unchanged exam from 09/29/2019 with remote injury to the left cerebrum with associate d encephalomalacia. 2. No evidence of acute/subacute CVA or evidence for intracranial hemorrhage. 3. No significant spinal canal neural foraminal stenosis. 4. No evidence for fracture.
[2022-11-14] MEDS ORDERED: KETOROLAC 15 MG/ML 1 ML VIAL IVP STA (20:13)
[2022-11-14 20:19] LABS: ALT 15 U/L (4-34); AST 19 U/L (14-36); African American GFR (CKD) >90 (>60 ml/min/1.73 sqM); Albumin 4.2 g/dL (3.5-5.0); Alkaline Phosphatase 74 U/L (38-126); Anion Gap 6 mmol/L; Blood Urea Nitrogen 13 mg/dL (7-17); Calcium 8.5 mg/dL (8.4-10.2); Carbon Dioxide 26 mmol/L (22-30); Chloride 106 mmol/L (98-107); Glucose 79 mg/dL (74-99); Magnesium 2.1 mg/dL (1.6-2.3); Non-African American GFR(CKD) >90 (>60 ml/min/1.73 sqM); Potassium 3.8 mmol/L (3.5-5.1); Sodium 138 mmol/L (137-145); Total Bilirubin 0.4 mg/dL (0.2-1.3); Total Protein 7.1 g/dL (6.3-8.2)
[2022-11-14 20:27] LABS: Basophils % (A) 0 %; Eosinophils % (A) 1 %; HCT 38.3 % (34.0-46.0); HGB 12.9 gm/dL (11.4-16.0); Lymphocytes # (A) 0.9 k/uL (1.0-4.8); Lymphocytes % (A) 23 %; MCH 31.8 pg (25.0-35.0); MCHC 33.6 g/dL (31.0-37.0); MCV 94.5 fL (80.0-100.0); Mean Platelet Volume 8.4; Monocytes # (A) 0.2 k/uL (0-1.0); Monocytes % (A) 5 %; Neutrophils # (A) 2.8 k/uL (1.3-7.7); Neutrophils % (A) 71 %; Platelet Count 179 k/uL (150-450); RBC 4.05 m/uL (3.80-5.40); RDW 12.4 % (11.5-15.5); WBC 3.9 k/uL (3.8-10.6)
[2022-11-14 20:28] LABS: Carbamazepine (Tegretol) 15.6 ug/mL
[2022-11-14 21:27] VITALS: BP 91/54; PULSE 80; RESP 18
== END 2022-11-14 21:25 | disposition home or self-care (01) ==
LOC: EC 18:05
DX: G40.89 Other seizures (principal); T42.1X5A Adverse effect of iminostilbenes, initial encounter; F32.A Depression, unspecified; Z88.1 Allergy status to other antibiotic agents; Z88.5 Allergy status to narcotic agent; Z88.8 Allergy status to other drugs, medicaments and biological substances; Z91.048 Other nonmedicinal substance allergy status; Z79.899 Other long term (current) drug therapy; Z88.0 Allergy status to penicillin
CPT/HCPCS: 99285 ×2; 96374 ×2; 96361 ×2; 36415; 93005; 80156; 80053; 80175; 83735; 85025; 81001; 72125; 70450; J1885

== ENCOUNTER → 2022-11-22 | Outpatient (CLI) | payer OTHER ==
[2022-11-22 12:20] VITALS: BP 110/57; PULSE 110; RESP 18; TEMP 98.1
--- NOTE | 2022-11-22 14:18 | P.PAINPG ---
PQRS Measure Charge Sheet Comment: A 37 yr old female w mother at side with a history of severe and chronic neck pain secondary to occipital neuralgia and cervicogenic headache presents today for evaluation s/p BL NASIM injection. Pt states she experienced 50% x 3 wks s/p procedure. Pain level is provoked at 8 /10 in intensity, constant, localized in the cervical spine, sore in character w shooting towards L scalp> R. Pain is provoked by sleeping on her side or cervical flexion. Pain is alleviated with PT in Fall 2021 x 8 wks, medications, massages at home, chiropractic treatments semi monthly, heat, ice, hot showers, heat packs and rest. Interventional pain procedures completed include BL NASIM injections, BL RFA C2-C4 Patient is currently on Aleve, ASA, Ibu, Tramadol, Toradol injections, Flexeril, Voltaren gel Patient denies any side effects of the medication(s), denies excessive drowsiness or sleepiness, denies suicidal ideation and reports that the current pain medication is helping to control the pain and improve activities of daily living. Patient denies any motor or sensory deficits. Patient denies any fever or night sweats, denies any change in the bowel movements or urination. Physical Examination: -Constitutional: Cooperative. Not in acute distress . - Neurologic: Cranial nerve II to XII intact. No focal neurological deficits. - Psychatric: Alert & oriented x 3. Matching mood & appropriate affect. Judgment and insight intact. - Musculoskeletal: Cervical spine: Muscle bulk/ tone/ strength in the bilateral upper extremities normal Vertebral body tenderness to palpation over Spurling test positive Distraction test positive Facet loading test positive TTP over BL C2-C3, C3-C4 facets Thoracic spine Muscle bulk / tone/ strength in the bilateral paraspinal muscles normal Vertebral body tender to palpation over Facet loading test positive Lumbar spine: Motor bulk/ tone/ strength lower extremities , thigh and legs : 5/5 Deep tendon reflexes : Normal Knee Jerk. Normal Ankle Jerk . Vertebral body tenderness to palpation over Lumbar Facet Loading Test positive Straight Leg Raise: positive at 30 degrees right side/ left side Gaenslen's Test positive Sacral spine : Severe tenderness over the Sacroiliac joint: right side / left side Range of motion: Flexion of the lumbar spine <60 degrees Range of motion: Extension of the lumbar spine <20 degrees Gaenslen's Test positive Mariam test: positive right side / left side Thigh Thrust Test Sacral Thrust Test Assessment and plan: Chronic neck pain secondary to occipital neuralgia and cervicogenic headache Recommendation of BL RFA C2-C3, C3-C4. Pt exhibited substantial pain relief w prior RFA procedure. Risks, benefits of procedure discussed and pt verbalized understanding. Admits to anticoagulant use or medical history of diabetes. Protocol for discontinuation/ continuation of medications kannan procedure discussed. Chronic and current use of high-risk medication (Opioids). The patient was counseled about risk of opioid use, psychological risk associated with opioids and was orally counseled to not overuse , divert or sell medications. Pt is to store medication in a safe location. The patient is counseled against driving while using narcotic medications and also not to use alcohol or any illicit recreational drugs. Patient verbalized understanding that the lack of compliance will result in failure to renew narcotic prescription(s) as well as possible discharge from the clinic Diagnoses, prognosis and treatment options including but not limited to physical therapy, surgical interventions, interventional therapies and medication management including narcotics and adjuvant medication were discussed. All patient questions answered MAPS reviewed and it was appropriate. Script for massage therapy x 6 wks Dx : cervicogenic MCCALLUM Prescription refill for Nurtec, Toradol, Emgality, Reglan, insulin syringes w 1 RF. I have spent less than 30 minutes on patient care today. Dr Sung was available by phone for the evaluation of this patient. The time was used to review the medical records including relevant urine studies and Prescription history (MAPs), review of the available imaging, evaluation and examination of the patient, coordination of care with the medical staff and if applicable referring physicians, as well as creation of the medical record PQRS Narrative: Smoking Status Never smoker Hx Alcohol Use (MH) No Home Medications: Ambulatory Orders Atomoxetine HCl [Strattera] 80 mg PO QAM 11/16/14 Folic Acid 1 mg PO DAILY 11/16/14 carBAMazepine [TEGretol] 200 mg PO 1200 11/16/14 carBAMazepine [TEGretol] 200 mg PO AC-BRKFST 11/16/14 fluvoxaMINE MALEATE [Luvox] 100 mg PO HS 11/16/14 fluvoxaMINE MALEATE [Luvox] 200 mg PO QAM 11/16/14 lamoTRIgine [LaMICtal] 100 mg PO BID 11/16/14 carBAMazepine [TEGretol] 100 mg PO HS 06/12/22 traZODone HCL [Desyrel] 150 mg PO HS 06/12/22 Metoclopramide [Reglan] 10 mg PO TID PRN 30 Days #60 tab 09/24/22 diazePAM [Diastat] 10 mg RECTAL ONCE PRN #2 kit 11/14/22 Diclofenac Sodium Gel [Voltaren Gel] 4 gm TOPICAL BID PRN 30 Days #100 gm 11/22/22 Galcanezumab-Gnlm [Emgality Syringe] 300 mg SQ QMONTHLY 30 Days #1 each 11/22/22 Ketorolac [Toradol] 10 mg IM Q8HR PRN 30 Days #60 ml 11/22/22 Rimegepant Sulfate [Nurtec Odt] 75 mg SL DIRECTED PRN 30 Days #15 tab 11/22/22 Controlled Substance Measures - Controlled Substance Measures Is patient prescribed a controlled substance at discharge?: No
== END ==
LOC: PNWHC3 09:49
PROVIDERS: ATTEND Specialist
DX: M54.81 Occipital neuralgia (principal); G44.86 Cervicogenic headache; Z88.1 Allergy status to other antibiotic agents; Z88.5 Allergy status to narcotic agent; Z91.048 Other nonmedicinal substance allergy status; Z91.041 Radiographic dye allergy status; Z88.8 Allergy status to other drugs, medicaments and biological substances; Z79.891 Long term (current) use of opiate analgesic
CPT/HCPCS: 99211

== ENCOUNTER → 2023-02-18 | Outpatient (CLI) | payer OTHER ==
[2023-02-18 11:39] VITALS: BP 111/73; PULSE 101; RESP 18; TEMP 98
--- NOTE | 2023-02-18 12:31 | P.PAINPG ---
PQRS Measure Charge Sheet Comment: A 37 yr old female w mother at side with a history of severe and chronic neck pain secondary to cervical DDD and spondylosis with facet arthropathy without myelopathy presents today for medication refills and evaluation s/p BL RFA C2- C4. Pt states she experienced 80 % pain relief x 8 wks s/p procedure. Pain level is provoked at 8/10 in intensity, intermittent, localized in the upper cervical spine, achy/ sharp/ in character w shooting towards the top of the head. Pain is provoked by sounds, bright lights. Pain is alleviated with physician guided home exercise, chiropractic treatments weekly, heat, medications, topical, laying in a darkened room and rest. Interventional pain procedures completed include BL RFA C2-C4, BL NASIM Patient is currently on Toradol, Reglan, Fioricet, Aleve Patient denies any side effects of the medication(s), denies excessive drowsiness or sleepiness, denies suicidal ideation and reports that the current pain medication is helping to control the pain and improve activities of daily living. Patient denies any motor or sensory deficits. Patient denies any fever or night sweats, denies any change in the bowel movements or urination. Physical Examination: -Constitutional: Cooperative. Not in acute distress . - Neurologic: Cranial nerve II to XII intact. No focal neurological deficits. - Psychatric: Alert & oriented x 3. Matching mood & appropriate affect. Judgment and insight intact. - Musculoskeletal: Cervical spine: Muscle bulk/ tone/ strength in the bilateral upper extremities normal Vertebral body tenderness to palpation over Diffuse TTP over BL paraspinal C2-T1 Spurling test positive Distraction test positive Facet loading test positive TTP Thoracic spine Muscle bulk / tone/ strength in the bilateral paraspinal muscles normal Vertebral body tender to palpation over Facet loading test positive TTP Lumbar spine: Motor bulk/ tone/ strength lower extremities , thigh and legs : 5/5 Deep tendon reflexes : Normal Knee Jerk. Normal Ankle Jerk . Vertebral body tenderness to palpation over Lumbar Facet Loading Test positive Straight Leg Raise: positive at 30 degrees right side/ left side Gaenslen's Test positive Sacral spine : Severe tenderness over the Sacroiliac joint: right side / left side Range of motion: Flexion of the lumbar spine <60 degrees Range of motion: Extension of the lumbar spine <20 degrees Gaenslen's Test positive R / L Mariam test: positive right side / left side Thigh Thrust Test positive R / L Sacral Thrust Test positive R/ L Assessment and plan: Chronic neck pain secondary to cervical DDD, spondylosis with facet arthropathy without myelopathy Recommendation of cervical TPIs. May need a series of injections for optimal pain relief. Risks, benefits of procedure discussed and pt verbalized understanding. Admits to anticoagulant use or medical history of diabetes. Protocol for discontinuation/ continuation of medications kannan procedure discussed. All questions answered. Chronic and current use of high-risk medication (Opioids). The patient was counseled about risk of opioid use, psychological risk associated with opioids and was orally counseled to not overuse , divert or sell medications. Pt is to store medication in a safe location. The patient is counseled against driving while using narcotic medications and also not to use alcohol or any illicit recreational drugs. Patient verbalized understanding that the lack of compliance will result in failure to renew narcotic prescription(s) as well as possible discharge from the clinic Diagnoses, prognosis and treatment options including but not limited to physical therapy, surgical interventions, interventional therapies and medication management including narcotics and adjuvant medication were discussed. All patient questions answered MAPS reviewed and it was appropriate. Prescription refill for Toradol inj, syringes, Nurtec, Voltaren, Reglan w 1 RF I have spent less than 30 minutes on patient care today. Dr Sung was available by phone for the evaluation of this patient. The time was used to review the medical records including relevant urine studies and Prescription history (MAPs), review of the available imaging, evaluation and examination of the patient, coordination of care with the medical staff and if applicable referring physicians, as well as creation of the medical record - Pain Location Bilateral Posterior Head Non-Pharmacological Interventions: Chiropractic Treatment, Heat, Ice, Inactivity, Physical Therapy, Reduce Environmental Stimuli Pharmacological Interventions: PRN Medication, Topical Medication PQRS Narrative: Smoking Status Never smoker Hx Alcohol Use (MH) No Home Medications: Ambulatory Orders Atomoxetine HCl [Strattera] 80 mg PO QAM 11/16/14 Folic Acid 1 mg PO DAILY 11/16/14 carBAMazepine [TEGretol] 200 mg PO 1200 11/16/14 carBAMazepine [TEGretol] 200 mg PO AC-BRKFST 11/16/14 fluvoxaMINE MALEATE [Luvox] 100 mg PO HS 11/16/14 fluvoxaMINE MALEATE [Luvox] 200 mg PO QAM 11/16/14 lamoTRIgine [LaMICtal] 100 mg PO BID 11/16/14 carBAMazepine [TEGretol] 100 mg PO HS 06/12/22 traZODone HCL [Desyrel] 150 mg PO HS 06/12/22 diazePAM [Diastat] 10 mg RECTAL ONCE PRN #2 kit 11/14/22 Metoclopramide HCl [Metoclopramide HCl Odt] 5 mg PO BID PRN 30 Days #60 tab 11/22/22 Diclofenac Sodium Gel [Voltaren Gel] 4 gm TOPICAL BID PRN 30 Days #100 gm 02/18/23 Galcanezumab-Gnlm [Emgality Syringe] 300 mg SQ QMONTHLY 30 Days #1 each 02/18/23 Ketorolac [Toradol] 30 mg IM Q12H PRN 30 Days #24 ml 02/18/23 Metoclopramide [Reglan] 10 mg PO TID PRN 30 Days #60 tab 02/18/23 Rimegepant Sulfate [Nurtec Odt] 75 mg SL DIRECTED PRN 30 Days #15 tab 02/18/23 Controlled Substance Measures - Controlled Substance Measures Is patient prescribed a controlled substance at discharge?: No
== END ==
LOC: PNWHC3 10:57
PROVIDERS: ATTEND Specialist
DX: M50.30 Other cervical disc degeneration, unspecified cervical region (principal); G89.29 Other chronic pain; M47.812 Spondylosis without myelopathy or radiculopathy, cervical region; Z79.891 Long term (current) use of opiate analgesic; Z88.1 Allergy status to other antibiotic agents; Z88.5 Allergy status to narcotic agent; Z91.02 Food additives allergy status
CPT/HCPCS: 99211

== ENCOUNTER → 2023-04-24 | Outpatient (CLI) | payer OTHER ==
[2023-04-24 09:22] VITALS: BP 95/69; PULSE 86; RESP 18; TEMP 98
--- NOTE | 2023-04-24 13:29 | P.PAINPG ---
PQRS Measure Charge Sheet Comment: A 37 yr old female w mother at side with a history of severe and chronic neck pain secondary to cervical DDD and spondylosis with facet arthropathy without myelopathy presents today for medication refills and evaluation s/p cervical TPIs. Pt states she experienced 80 % pain relief x 4 wks s/p procedure. Pain level is provoked at 9/10 in intensity, intermittent, localized in the upper cervical spine, achy in character w shooting towards the top of the head. Pain is provoked by sounds, bright lights. Pain is alleviated with PT x 12 wks in Aug 2022, botox injections every 2 mo for MCCALLUM pain, physician guided home exercise, chiropractic treatments weekly w last visit 2 mo ago, heat, ice, medications, to pical, laying in a darkened room and rest. Interventional pain procedures completed include BL RFA C2-C4, BL NASIM Patient is currently on Toradol, Topamax, Reglan, Fioricet, Aleve, ASA, Excedrin Migraine Patient denies any side effects of the medication(s), denies excessive drowsiness or sleepiness, denies suicidal ideation and reports that the current pain medication is helping to control the pain and improve activities of daily living. Patient denies any motor or sensory deficits. Patient denies any fever or night sweats, denies any change in the bowel movements or urination. Physical Examination: -Constitutional: Cooperative. Not in acute distress . - Neurologic: Cranial nerve II to XII intact. No focal neurological deficits. - Psychatric: Alert & oriented x 3. Matching mood & appropriate affect. Judgment and insight intact. - Musculoskeletal: Cervical spine: Muscle bulk/ tone/ strength in the bilateral upper extremities normal Vertebral body tenderness to palpation over Diffuse TTP over BL paraspinal C3, C4, C5 Spurling test positive Distraction test positive Facet loading test positive TTP Thoracic spine Muscle bulk / tone/ strength in the bilateral paraspinal muscles normal Vertebral body tender to palpation over Facet loading test positive TTP Lumbar spine: Motor bulk/ tone/ strength lower extremities , thigh and legs : 5/5 Deep tendon reflexes : Normal Knee Jerk. Normal Ankle Jerk . Vertebral body tenderness to palpation over Lumbar Facet Loading Test positive Straight Leg Raise: positive at 30 degrees right side/ left side Gaenslen's Test positive Sacral spine : Severe tenderness over the Sacroiliac joint: right side / left side Range of motion: Flexion of the lumbar spine <60 degrees Range of motion: Extension of the lumbar spine <20 degrees Gaenslen's Test positive R / L Mariam test: positive right side / left side Thigh Thrust Test positive R / L Sacral Thrust Test positive R/ L Assessment and plan: Chronic neck pain secondary to cervical DDD, spondylosis with facet arthropathy without myelopathy Chronic and current use of high-risk medication (Opioids). The patient was counseled about risk of opioid use, psychological risk associated with opioids and was orally counseled to not overuse , divert or sell medications. Pt is to store medication in a safe location. The patient is counseled against driving while using narcotic medications and also not to use alcohol or any illicit recreational drugs. Patient verbalized understanding that the lack of compliance will result in failure to renew narcotic prescription(s) as well as possible discharge from the clinic Diagnoses, prognosis and treatment options including but not limited to physical therapy, surgical interventions, interventional therapies and medication management including narcotics and adjuvant medication were discussed. All patient questions answered MAPS reviewed and it was appropriate. Prescription refill for Toradol inj, syringes, Voltaren, Reglan w 1 RF I have spent less than 30 minutes on patient care today. Dr Sung was available by phone for the evaluation of this patient. The time was used to review the medical records including relevant urine studies and Prescription history (MAPs), review of the available imaging, evaluation and examination of the patient, coordination of care with the medical staff and if applicable referring physicians, as well as creation of the medical record PQRS Narrative: Smoking Status Never smoker Hx Alcohol Use (MH) No Home Medications: Ambulatory Orders Atomoxetine HCl [Strattera] 80 mg PO QAM 11/16/14 Folic Acid 1 mg PO DAILY 11/16/14 carBAMazepine [TEGretol] 200 mg PO 1200 11/16/14 carBAMazepine [TEGretol] 200 mg PO AC-BRKFST 11/16/14 fluvoxaMINE MALEATE [Luvox] 100 mg PO HS 11/16/14 fluvoxaMINE MALEATE [Luvox] 200 mg PO QAM 11/16/14 lamoTRIgine [LaMICtal] 100 mg PO BID 11/16/14 carBAMazepine [TEGretol] 100 mg PO HS 06/12/22 traZODone HCL [Desyrel] 150 mg PO HS 06/12/22 diazePAM [Diastat] 10 mg RECTAL ONCE PRN #2 kit 11/14/22 Metoclopramide HCl [Metoclopramide HCl Odt] 5 mg PO BID PRN 30 Days #60 tab 11/22/22 Diclofenac Sodium Gel [Voltaren Gel] 4 gm TOPICAL BID PRN 30 Days #100 gm 02/18/23 Galcanezumab-Gnlm [Emgality Syringe] 300 mg SQ QMONTHLY 30 Days #1 each 02/18/23 Ketorolac [Toradol] 30 mg IM Q12H PRN 30 Days #24 ml 02/18/23 Metoclopramide [Reglan] 10 mg PO TID PRN 30 Days #60 tab 02/18/23 Rimegepant Sulfate [Nurtec Odt] 75 mg SL DIRECTED PRN 30 Days #15 tab 02/18/23 Controlled Substance Measures - Controlled Substance Measures Is patient prescribed a controlled substance at discharge?: No
== END ==
LOC: PNWHC3 08:11
PROVIDERS: ATTEND Specialist
DX: M50.31 Other cervical disc degeneration, high cervical region (principal); M47.812 Spondylosis without myelopathy or radiculopathy, cervical region; G89.29 Other chronic pain; Z79.891 Long term (current) use of opiate analgesic; Z88.1 Allergy status to other antibiotic agents; Z88.5 Allergy status to narcotic agent; Z91.02 Food additives allergy status; Z88.0 Allergy status to penicillin; Z88.8 Allergy status to other drugs, medicaments and biological substances
CPT/HCPCS: 99211

== ENCOUNTER 2023-05-28 10:26 | Day surgery (SDC) | payer OTHER ==
[2023-05-27 12:05] VITALS: BMI 21.6
[~2023-05-28 10:26] MED LIST changes: -LIDOCAINE 1% (10MG/ML) FOR IV START INTRADERMA PRN
[2023-05-28 10:55] VITALS: TEMP 98.4
[2023-05-28] MEDS ORDERED: ROPIVACAINE 5 MG/ML 20 ML AMPULE ONE (11:16)
[2023-05-28] MEDS ORDERED: methylPREDNISolone ACETATE 40 MG/ML 1 ML VIAL ONE (11:16)
--- NOTE | 2023-05-28 11:20 | P.PCN ---
Date of Procedure: 05/28/23 Procedure(s) Performed: Preoperative diagnoses= 1- Greater occipital neuralgia. 2-cervicogenic headache Postoperative diagnoses= same as preoperative diagnosis. Procedure= Bilateral Greater occipital nerve block Anesthesia= none . Estimated blood loss=minimal. Procedure indication= the patient had a history of severe chronic neck pain ,and headache, diagnosed with occipital neuralgia exam was positive for severe tenderness over the occipital nerve bilaterally, she will be a good candidate occipital nerve block, patient failed conservative management Procedure description= the patient was seen and identified in the preoperative holding area, risks and benefits and alternative of the procedure and possible complications discussed with the patient, and he agreed with the preceding, patient signed the consent, and vital signs were monitored and were stable throughout the procedure, patient was placed in the sitting position or table and the neck area was prepped and draped with a sterile fashion, vital signs were closely monitored during the procedure, 25-gauge needle advanced 1 inch lateral to the occipital protuberance on the right side, at the location of the right occipital nerve , then after negative aspiration for heme and CSF and there was no paresthesia during the injection, 6 ml of Robivacaine 0.5% and 20 mg of Depo-Medrol injected after negative aspiration, the needle removed, and the entire same procedure was repeated for the left Greater occipital nerve. Patient tolerated the procedure well without any complication, The patient returned to supine position after the back was cleaned and a Band- Aid applied, the patient transported to recovery room in stable condition and he was monitored for 30 minutes before he was discharged home and then patient was reexamined before going home and patient was discharged in stable condition and patient will follow up with the pain clinic in a few weeks.
[2023-05-28 11:28] VITALS: BP 111/75; PULSE 93; RESP 18
== END 2023-05-28 11:35 | disposition home or self-care (01) ==
LOC: ORPAIN 10:26
PROVIDERS: ATTEND Specialist
DX: M54.81 Occipital neuralgia (principal); Z88.8 Allergy status to other drugs, medicaments and biological substances
CPT/HCPCS: 81025; 64405; J1030; J2795

== ENCOUNTER → 2023-06-19 | Outpatient (CLI) | payer OTHER ==
[2023-06-19 09:03] VITALS: BP 104/73; PULSE 97; RESP 16; TEMP 98.4
--- NOTE | 2023-06-19 14:39 | P.PAINPG ---
PQRS Measure Charge Sheet Comment: A 37 yr old female w caregiver at side with a history of severe and chronic neck pain secondary to cervical DDD and spondylosis with facet arthropathy without myelopathy presents today for medication refills and evaluation s/p BL NASIM injections. Pt states she experienced 70% pain relief x 3 wks s/p procedu re. Pt also states she experienced 80 % pain relief x 6 mo s/p BL RFA C2-C3, C3-C4 procedure. Pain level is provoked at 6/10 in intensity, intermittent, localized in the upper cervical spine, achy in character w shooting towards the top of the head. Pain is provoked by sounds, bright lights, cold weather. Pain is alleviated with PT x 12-16 wks in Aug 2022, botox injections every 2 mo for MCCALLUM pain, physician guided home exercise, chiropractic treatments semi monthly which she is currently in, heat, ice, medications, topical, laying in a darkened room and rest. Oswestry axial pain score of 31. Interventional pain procedures completed include BL RFA C2-C4 (Dec 2022), BL NASIM Patient is currently on Toradol, Topamax, Reglan, Fioricet, Aleve, ASA, Excedrin Migraine Patient denies any side effects of the medication(s), denies excessive drowsiness or sleepiness, denies suicidal ideation and reports that the current pain medication is helping to control the pain and improve activities of daily living. Patient denies any motor or sensory deficits. Patient denies any fever or night sweats, denies any change in the bowel movements or urination. Physical Examination: -Constitutional: Cooperative. Not in acute distress . - Neurologic: Cranial nerve II to XII intact. No focal neurological deficits. - Psychatric: Alert & oriented x 3. Matching mood & appropriate affect. Judgment and insight intact. - Musculoskeletal: Cervical spine: Muscle bulk/ tone/ strength in the bilateral upper extremities normal Vertebral body tenderness to palpation over Spurling test positive Distraction test positive Facet loading test positive TTP over BL C2-C3, C3-C4 Thoracic spine Muscle bulk / tone/ strength in the bilateral paraspinal muscles normal Vertebral body tender to palpation over Facet loading test positive TTP Lumbar spine: Motor bulk/ tone/ strength lower extremities , thigh and legs : 5/5 Deep tendon reflexes : Normal Knee Jerk. Normal Ankle Jerk . Vertebral body tenderness to palpation over Lumbar Facet Loading Test positive Straight Leg Raise: positive at 30 degrees right side/ left side Gaenslen's Test positive Sacral spine : Severe tenderness over the Sacroiliac joint: right side / left side Range of motion: Flexion of the lumbar spine <60 degrees Range of motion: Extension of the lumbar spine <20 degrees Gaenslen's Test positive R / L Mariam test: positive right side / left side Thigh Thrust Test positive R / L Sacral Thrust Test positive R/ L Assessment and plan: Chronic neck pain secondary to cervicogenic MCCALLUM and occipital neuralgia Recommendation of BL RFA C2-C3, C3-C4. Pt exhibited substantial pain relief w prior RFA in Dec 2022. Risks, benefits of procedure discussed and pt verbalized understanding. Protocol for discontinuation/ continuation of medications surrounding procedure discussed. Chronic and current use of high-risk medication (Opioids). The patient was counseled about risk of opioid use, psychological risk associated with opioids and was orally counseled to not overuse , divert or sell medications. Pt is to store medication in a safe location. The patient is counseled against driving while using narcotic medications and also not to use alcohol or any illicit recreational drugs. Patient verbalized understanding that the lack of compliance will result in failure to renew narcotic prescription(s) as well as possible discharge from the clinic Diagnoses, prognosis and treatment options including but not limited to physical therapy, surgical interventions, interventional therapies and medication management including narcotics and adjuvant medication were discussed. All patient questions answered MAPS reviewed and it was appropriate. Prescription refill for Toradol inj, syringes, Voltaren, Reglan, Lidocaine 5% topical w 1 RF I have spent less than 30 minutes on patient care today. Dr Sung was available by phone for the evaluation of this patient. The time was used to review the medical records including relevant urine studies and Prescription history (MAPs), review of the available imaging, evaluation and examination of the patient, coordination of care with the medical staff and if applicable referring physicians, as well as creation of the medical record PQRS Narrative: Smoking Status Never smoker Hx Alcohol Use (MH) No Home Medications: Ambulatory Orders Atomoxetine HCl [Strattera] 80 mg PO QAM 11/16/14 Folic Acid 1 mg PO DAILY 11/16/14 carBAMazepine [TEGretol] 200 mg PO 1200 11/16/14 carBAMazepine [TEGretol] 200 mg PO AC-BRKFST 11/16/14 fluvoxaMINE MALEATE [Luvox] 200 mg PO QAM 11/16/14 lamoTRIgine [LaMICtal] 100 mg PO BID 11/16/14 carBAMazepine [TEGretol] 100 mg PO HS 06/12/22 diazePAM [Diastat] 10 mg RECTAL ONCE PRN #2 kit 11/14/22 Metoclopramide HCl [Metoclopramide HCl Odt] 5 mg PO BID PRN 30 Days #60 tab 11/22/22 Metoclopramide [Reglan] 10 mg PO TID PRN 30 Days #60 tab 04/24/23 Diclofenac Sodium Gel [Voltaren Gel] 4 gm TOPICAL BID PRN 30 Days #100 gm 06/19/23 Ketorolac [Toradol] 30 mg IM Q12H PRN 30 Days #24 ml 06/19/23 Lidocaine 5% Oint [Xylocaine 5% Oint] 1 applic TOPICAL BID PRN 30 Days #50 gm 06/19/23 Metoclopramide HCl [Reglan] 5 mg PO BID PRN 30 Days #60 tablet 06/19/23 Controlled Substance Measures - Controlled Substance Measures Is patient prescribed a controlled substance at discharge?: No
== END ==
LOC: PNWHC3 08:09
PROVIDERS: ATTEND Specialist
DX: M54.81 Occipital neuralgia (principal); M50.320 Other cervical disc degeneration, mid-cervical region, unspecified level; G89.29 Other chronic pain; G44.86 Cervicogenic headache; Z79.891 Long term (current) use of opiate analgesic; Z88.8 Allergy status to other drugs, medicaments and biological substances; Z88.0 Allergy status to penicillin; Z91.048 Other nonmedicinal substance allergy status; Z88.5 Allergy status to narcotic agent
CPT/HCPCS: 99211

== ENCOUNTER → 2023-06-28 | Day surgery (SDC) | payer OTHER ==
[2023-06-25 15:05] VITALS: BMI 21.9
[~2023-06-28] MED LIST changes: +LACTATED RINGERS 1,000 ML IV ONE; +LIDOCAINE 1% (10MG/ML) FOR IV START INTRADERMA ONE; +MIDAZOLAM 2 MG/2 ML VIAL ONE; +ROPIVACAINE 5MG/ML 20ML VIAL ONE; +fentaNYL (PF) 50 MCG/ML 2 ML AMP ONE; +methylPREDNISolone ACETATE 40 MG/ML 1 ML VIAL ONE
[2023-06-28 12:20] VITALS: TEMP 97.2
--- NOTE | 2023-06-28 13:20 | P.PCN ---
Date of Procedure: 06/28/23 Procedure(s) Performed: PREOPERATIVE DIAGNOSIS: 1-Cervical spondylosis with Facet Arthropathy without myelopathy. 2-cervicogenic headache. 3-occipital neuralgia POSTOPERATIVE DIAGNOSIS: Same as preop diagnosis. PROCEDURES: Radiofrequency thermocoagulation bilateral C2 ,C3, C4. medial branch with Fluroscopy [place](fluoroscopy was available in Radiology department ) (to denervate the facet joint at bilateral C2-3 , C3- 4) ANESTHESIA: Monitored anesthesia care as per anesthesia department . EBL: Minimal PROCEDURE INDICATION: The patient with neck pain secondary to cervical arthropathy who had more than 50% relief of her pain with previous diagnostic cervical medial branch block. PROCEDURE DESCRIPTION / TECHNIQUE: The patient was seen and identified in the preoperative area. Risks, benefits, complications, and alternatives were discussed with the patient, the patient agreed to proceed with the procedure and signed the consent. IV was started. Vital signs remained stable throughout the procedure. Patient was taken to the OR and time out was completed. The patient was placed in the prone position on the procedure table. A pillow was placed under the patients chest to increase the cervical interlaminar space. The cervical area was prepped and draped in the usual sterile fashion. Critical pause was taken. Vital signs were closely monitored during the procedure. Conscious sedation was used during the procedure to decrease patients anxiety. Using cross-table lateral fluoroscopy, the centroid of the trapezoid of Right C2 ,C3, C4 were identified, marked, and localized with 1% lidocaine. Subsequently, a 20 [id number] radiofrequency cannula with a 10-mm active tip was advanced guided by fluoroscopy to the centroid of the trapezoid of Right C2 ,C3, C4, . Needle tip position was confirmed at the centroid of the trapezoids of Right C2 ,C3, C4 with anteroposterior fluoroscopy. Each site then underwent sensory testing at 50 Hz and 0 to 1 volt and motor testing at 2 Hz and 0 to 3 volt with local stimulation, but no radicular symptoms down the arm. Thereafter each sites underwent radiofrequency thermocoagulation at 80 degrees celsius for 90 seconds after injecting 0.5 ml of PF Ropivacaine 0.5 %. After thermocoagulation, 1 ml of the block solution containing Depo-Medrol 20 mg and 3 mL of preservative-free normal saline was injected at the Right C2 ,C3, C4, levels after negative aspiration of CSF and blood and with no paresthesias. Cannulas were retracted while injecting lidocaine 1% until the needle is out. Then after that the exact same procedure was done for the left side at C2 ,C3, and C4 , unaided the RFA for the left side medial branch at C2,C3 .C4 ,at the end the Skin was cleansed and bandages were applied. COMPLICATIONS: No acute complications. DISPOSITION / PLANS: The patient was placed in a supine position and transferred to the recovery area in a stable condition for observation and was discharged from the recovery room after meeting discharge criteria. Home discharge instructions given to the patient by the staff. The patient was reexamined prior to discharge. The patient will schedule a follow up in the [facility] in 2-4 weeks.
[2023-06-28 13:50] VITALS: BP 105/54; PULSE 84; RESP 14
--- NOTE | 2023-06-28 16:26 | FL ---
Intraoperative/procedural fluoroscopic services were provided. Total fluoroscopy time is 13.4 seconds with a total of 5 submitted images to PACS. Please see the operative/procedural note for further det ails. DAP: [id number]
== END ==
LOC: ORPAIN 11:40
DX: M47.812 Spondylosis without myelopathy or radiculopathy, cervical region (principal); M54.81 Occipital neuralgia; G44.86 Cervicogenic headache; Z79.899 Other long term (current) drug therapy
CPT/HCPCS: 81025; 64633; 64634 ×2; J2250; J1030; J3010; J2795

== ENCOUNTER → 2023-07-22 | Outpatient (CLI) | payer OTHER ==
[2023-07-22 09:01] VITALS: BP 104/69; PULSE 93; RESP 16
--- NOTE | 2023-07-22 14:44 | P.PAINPG ---
PQRS Measure Charge Sheet Comment: A 37 yr old female w caregiver at side with a history of severe and chronic neck pain secondary to cervical DDD and spondylosis with facet arthropathy without myelopathy presents today for and evaluation s/p BL C2-C4 RFA. Pt states she experienced 90% pain relief s/p procedure. Pain level is provoked at 2/10 in intensity, intermittent, localized in the upper cervical spine, achy in character w shooting towards the top of the head. Pain is provoked by sounds, bright lights, cold weather. Pain is alleviated with PT x 12-16 wks in Aug 2022, botox injections every 2 mo for MCCALLUM pain, physician guided home exercise, chiropractic treatments semi monthly which she is currently in, heat, ice, medications, topical, laying in a darkened room and rest. Interventional pain procedures completed include BL RFA C2-C4 (Dec 2022, Jun 2023), BL NASIM Patient is currently on Toradol, Topamax, Reglan, Fioricet, Aleve, ASA, Excedrin Migraine Patient denies any side effects of the medication(s), denies excessive drowsiness or sleepiness, denies suicidal ideation and reports that the current pain medication is helping to control the pain and improve activities of daily living. Patient denies any motor or sensory deficits. Patient denies any fever or night sweats, denies any change in the bowel movements or urination. Physical Examination: -Constitutional: Cooperative. Not in acute distress . - Neurologic: Cranial nerve II to XII intact. No focal neurological deficits. - Psychatric: Alert & oriented x 3. Matching mood & appropriate affect. Judgment and insight intact. - Musculoskeletal: Cervical spine: Muscle bulk/ tone/ strength in the bilateral upper extremities normal Vertebral body tenderness to palpation over Spurling test positive Distraction test positive Facet loading test positive TTP over BL C2-C3, C3-C4 Thoracic spine Muscle bulk / tone/ strength in the bilateral paraspinal muscles normal Vertebral body tender to palpation over Facet loading test positive TTP Lumbar spine: Motor bulk/ tone/ strength lower extremities , thigh and legs : 5/5 Deep tendon reflexes : Normal Knee Jerk. Normal Ankle Jerk . Vertebral body tenderness to palpation over Lumbar Facet Loading Test positive Straight Leg Raise: positive at 30 degrees right side/ left side Gaenslen's Test positive Sacral spine : Severe tenderness over the Sacroiliac joint: right side / left side Range of motion: Flexion of the lumbar spine <60 degrees Range of motion: Extension of the lumbar spine <20 degrees Gaenslen's Test positive R / L Mariam test: positive right side / left side Thigh Thrust Test positive R / L Sacral Thrust Test positive R/ L Assessment and plan: Chronic neck pain secondary to cervicogenic MCCALLUM and occipital neuralgia Chronic and current use of high-risk medication (Opioids). The patient was counseled about risk of opioid use, psychological risk associated with opioids and was orally counseled to not overuse , divert or sell medications. Pt is to store medication in a safe location. The patient is counseled against driving while using narcotic medication s and also not to use alcohol or any illicit recreational drugs. Patient verbalized understanding that the lack of compliance will result in failure to renew narcotic prescription(s) as well as possible discharge from the clinic Diagnoses, prognosis and treatment options including but not limited to physical therapy, surgical interventions, interventional therapies and medication management including narcotics and adjuvant medication were discussed. All patient questions answered MAPS reviewed and it was appropriate. Refills of 30mg/2mL Toradol inj, 1cc 1/2" 28 ga needletip syringes, Voltaren, Reglan, Lidocaine 5% topical w 1 RF I have spent less than 30 minutes on patient care today. Dr Sung was available by phone for the evaluation of this patient. The time was used to review the medical records including relevant urine studies and Prescription history (MAPs), review of the available imaging, evaluation and examination of the patient, coordination of care with the medical staff and if applicable referring physicians, as well as creation of the medical record PQRS Narrative: Smoking Status Never smoker Hx Alcohol Use (MH) No Home Medications: Ambulatory Orders Atomoxetine HCl [Strattera] 80 mg PO QAM 11/16/14 Folic Acid 1 mg PO DAILY 11/16/14 carBAMazepine [TEGretol] 200 mg PO 1200 11/16/14 carBAMazepine [TEGretol] 200 mg PO AC-BRKFST 11/16/14 fluvoxaMINE MALEATE [Luvox] 200 mg PO QAM 11/16/14 lamoTRIgine [LaMICtal] 100 mg PO BID 11/16/14 carBAMazepine [TEGretol] 100 mg PO HS 06/12/22 diazePAM [Diastat] 10 mg RECTAL ONCE PRN #2 kit 11/14/22 Aspirin 325 mg PO DIRECTED PRN 06/25/23 Botox 1 dose INJ Q120D 06/25/23 Naproxen Sodium [Aleve] 220 mg PO DIRECTED PRN 06/25/23 Diclofenac Sodium Gel [Voltaren Gel] 4 gm TOPICAL BID PRN 30 Days #100 gm 07/22/23 Ketorolac [Toradol] 30 mg IM Q12H PRN 30 Days #24 ml 07/22/23 Lidocaine 5% Oint [Xylocaine 5% Oint] 1 applic TOPICAL BID PRN 30 Days #50 gm 07/22/23 Metoclopramide [Reglan] 10 mg PO TID PRN 30 Days #60 tab 07/22/23 Syringe and Needle,Insulin,1Ml [Insulin Syringe 28G 1/2" 1ML] 1 syr IM DIRECTED PRN 30 Days #60 each 07/22/23 Controlled Substance Measures - Controlled Substance Measures Is patient prescribed a controlled substance at discharge?: No
== END ==
LOC: PNWHC3 08:11
PROVIDERS: ATTEND Specialist
DX: M50.31 Other cervical disc degeneration, high cervical region (principal); G44.86 Cervicogenic headache; M54.81 Occipital neuralgia; G89.29 Other chronic pain; Z79.891 Long term (current) use of opiate analgesic; Z88.8 Allergy status to other drugs, medicaments and biological substances; Z88.5 Allergy status to narcotic agent; Z88.0 Allergy status to penicillin
CPT/HCPCS: 99211

== ENCOUNTER → 2023-08-28 | Outpatient (CLI) | payer OTHER ==
[2023-08-28 08:23] VITALS: BP 113/68; PULSE 79; RESP 15; TEMP 98.7
--- NOTE | 2023-08-28 15:14 | P.PAINPG ---
Objective - Vital Signs Vital signs: Intake & Output 08/27/23 08/28/23 08/28/23 18:59 06:59 18:59 Weight 56.699 kg PQRS Measure Charge Sheet Comment: A 37 yr old female w caregiver at side with a history of severe and chronic neck pain secondary to cervical DDD and spondylosis with facet arthropathy without myelopathy presents today for and evaluation. Pt states she experienced 90% pain relief s/p BL NASIM procedure in May 2023. Pain level is provoked at 9/10 in intensity, intermittent, localized in the upper cervical spine, achy in character w shooting towards the top of the head. Pain is provoked by sounds, bright lights, cold weather. Pain is alleviated with PT x 12-16 wks in Aug 2022, botox injections every 2 mo for MCCALLUM pain, physician guided home exercise, chiropractic treatments semi monthly which she is currently in, heat, medications, topical, laying in a darkened room and rest. Oswestry axial pain score of 24. Interventional pain procedures completed include BL RFA C2-C4 (Dec 2022, Jun 2023), BL NASIM Patient is currently on Toradol, Topamax, Reglan, Fioricet, Aleve, ASA, Excedrin Migraine Patient denies any side effects of the medication(s), denies excessive drowsiness or sleepiness, denies suicidal ideation and reports that the current pain medication is helping to control the pain and improve activities of daily living. Patient denies any motor or sensory deficits. Patient denies any fever or night sweats, denies any change in the bowel movements or urination. Physical Examination: -Constitutional: Cooperative. Not in acute distress . - Neurologic: Cranial nerve II to XII intact. No focal neurological deficits. - Psychatric: Alert & oriented x 3. Matching mood & appropriate affect. Judgment and insight intact. - Musculoskeletal: Cervical spine: +BL NASIM TTP Muscle bulk/ tone/ strength in the bilateral upper extremities normal Vertebral body tenderness to palpation over Spurling test positive Distraction test positive Facet loading test positive Thoracic spine Muscle bulk / tone/ strength in the bilateral paraspinal muscles normal Vertebral body tender to palpation over Facet loading test positive TTP Lumbar spine: Motor bulk/ tone/ strength lower extremities , thigh and legs : 5/5 Deep tendon reflexes : Normal Knee Jerk. Normal Ankle Jerk . Vertebral body tenderness to palpation over Lumbar Facet Loading Test positive Straight Leg Raise: positive at 30 degrees right side/ left side Gaenslen's Test positive Sacral spine : Severe tenderness over the Sacroiliac joint: right side / left side Range of motion: Flexion of the lumbar spine <60 degrees Range of motion: Extension of the lumbar spine <20 degrees Gaenslen's Test positive R / L Mariam test: positive right side / left side Thigh Thrust Test positive R / L Sacral Thrust Test positive R/ L Assessment and plan: Chronic neck pain secondary to cervicogenic MCCALLUM and occipital neuralgia Recommendation of BL NASIM injections. May need a series of injections for optimal pain relief. Risks, benefits of procedure discussed and patient verbalized understanding. Protocol for discontinuation/continuation of medications surrounding procedure discussed. Chronic and current use of high-risk medication (Opioids). The patient was counseled about risk of opioid use, psychological risk associated with opioids and was orally counseled to not overuse , divert or sell medications. Pt is to store medication in a safe location. The patient is counseled against driving while using narcotic medications and also not to use alcohol or any illicit recreational drugs. Patient verbalized understanding that the lack of compliance will result in failure to renew narcotic prescription(s) as well as possible discharge from the clinic Diagnoses, prognosis and treatment options including but not limited to physical therapy, surgical interventions, interventional therapies and medication management including narcotics and adjuvant medication were discussed. All patient questions answered MAPS reviewed and it was appropriate. Refills of 30mg/2mL Toradol inj, 1cc 1/2" 28 ga needletip syringes, Voltaren, Reglan, Lidocaine 5% topical w 1 RF I have spent less than 30 minutes on patient care today. Dr Sung was available by phone for the evaluation of this patient. The time was used to review the medical records including relevant urine studies and Prescription history (MAPs), review of the available imaging, evaluation and examination of the patient, coordination of care with the medical staff and if applicable referring physicians, as well as creation of the medical record - Pain Location Bilateral Neck Non-Pharmacological Interventions: Heat, Inactivity, Reduce Environmental Stimuli, Sitting Pharmacological Interventions: Epidural, PRN Medication PQRS Narrative: Smoking Status Never smoker Hx Alcohol Use (MH) No Home Medications: Ambulatory Orders Atomoxetine HCl [Strattera] 80 mg PO QAM 11/16/14 Folic Acid 1 mg PO DAILY 11/16/14 carBAMazepine [TEGretol] 200 mg PO 1200 11/16/14 carBAMazepine [TEGretol] 200 mg PO AC-BRKFST 11/16/14 fluvoxaMINE MALEATE [Luvox] 200 mg PO QAM 11/16/14 lamoTRIgine [LaMICtal] 100 mg PO BID 11/16/14 carBAMazepine [TEGretol] 100 mg PO HS 06/12/22 diazePAM [Diastat] 10 mg RECTAL ONCE PRN #2 kit 11/14/22 Aspirin 325 mg PO DIRECTED PRN 06/25/23 Botox 1 dose INJ Q120D 06/25/23 Naproxen Sodium [Aleve] 220 mg PO DIRECTED PRN 06/25/23 Diclofenac Sodium Gel [Voltaren 1% Gel] 4 gm TOPICAL BID PRN 30 Days #100 gm 08/28/23 KETOROLAC (30 mg/mL) [TORADOL (30 mg/mL)] 30 mg IM BID PRN 30 Days #60 each 08/28/23 Lidocaine 5% Oint [Xylocaine 5% Oint] 1 applic TOPICAL BID PRN 30 Days #50 gm 08/28/23 Metoclopramide [Reglan] 10 mg PO TID PRN 30 Days #60 tab 08/28/23 Syringe and Needle,Insulin,1Ml [Insulin Syringe 28G 1/2" 1ML] 1 syr IM DIRECTED PRN 30 Days #60 each 08/28/23 Controlled Substance Measures - Controlled Substance Measures Is patient prescribed a controlled substance at discharge?: No
== END ==
LOC: PNWHC3 07:58
PROVIDERS: ATTEND Specialist
DX: M54.12 Radiculopathy, cervical region (principal); M54.81 Occipital neuralgia; G44.86 Cervicogenic headache; G89.29 Other chronic pain; Z79.891 Long term (current) use of opiate analgesic; Z79.82 Long term (current) use of aspirin; Z88.1 Allergy status to other antibiotic agents; Z88.5 Allergy status to narcotic agent; Z88.8 Allergy status to other drugs, medicaments and biological substances; Z88.0 Allergy status to penicillin
CPT/HCPCS: 99211

== ENCOUNTER 2023-09-17 09:13 | Day surgery (SDC) | payer OTHER ==
[2023-09-16 09:25] VITALS: BMI 21.9
[~2023-09-17 09:13] MED LIST changes: -LACTATED RINGERS 1,000 ML IV ONE; -LIDOCAINE 1% (10MG/ML) FOR IV START INTRADERMA ONE; -MIDAZOLAM 2 MG/2 ML VIAL ONE; -ROPIVACAINE 5MG/ML 20ML VIAL ONE; -fentaNYL (PF) 50 MCG/ML 2 ML AMP ONE; -methylPREDNISolone ACETATE 40 MG/ML 1 ML VIAL ONE
[2023-09-17 10:36] VITALS: RESP 20; TEMP 98.7
[2023-09-17] MEDS ORDERED: ROPIVACAINE 5MG/ML 20ML VIAL ONE (11:04)
[2023-09-17] MEDS ORDERED: methylPREDNISolone ACETATE 80 MG/ML 1 ML VIAL ONE (11:04)
--- NOTE | 2023-09-17 11:14 | P.PCN ---
Date of Procedure: 09/17/23 Description of Procedure: Preoperative diagnoses= 1- Greater occipital neuralgia Postoperative diagnoses= 1-greater occipital neuralgia Procedure= Bilateral Greater occipital nerve block Anesthesia= local only Procedure indication= the patient had a history of severe chronic neck pain ,and headache, diagnosed with occipital neuralgia exam was positive for severe tenderness over the occipital nerve bilaterally, she will be a good candidate occipital nerve block, patient failed conservative management Procedure description= the patient was seen and identified in the preoperative holding area, risks and benefits and alternative of the procedure and possible complications discussed with the patient, and he agreed with the preceding, patient signed the consent, and vital signs were monitored and were stable throughout the procedure, patient was placed in the sitting position or table and the neck area was prepped and draped with a sterile fashion, vital signs were closely monitored during the procedure, 25-gauge needle advanced over the superior name L Aware trapezius and sternocleidomastoid meets, occipital artery was palpated and the needle was medial to the occipital artery. then after negative aspiration for heme and CSF and there was no paresthesia during the injection, 3 mL of r opivacaine 0.5% mixed with 40 mg of Depo-Medrol injected on each side after negative aspiration, the needle removed, and the entire same procedure was repeated for the left Greater occipital nerve. Patient tolerated the procedure well without any complication, The patient returned to supine position after the back was cleaned and a Band- Aid applied, the patient transported to recovery room in stable condition and he was monitored for 30 minutes before he was discharged home and then patient was reexamined before going home and patient was discharged in stable condition and patient will follow up with the pain clinic in a few weeks.
[2023-09-17 11:29] VITALS: BP 112/61; PULSE 83
== END 2023-09-17 11:34 | disposition home or self-care (01) ==
LOC: ORPAIN 09:13
PROVIDERS: ATTEND Pain Medicine Interventional Pain Medicine
DX: M54.81 Occipital neuralgia (principal); M54.2 Cervicalgia; Z88.1 Allergy status to other antibiotic agents; Z88.5 Allergy status to narcotic agent; Z91.048 Other nonmedicinal substance allergy status; Z88.0 Allergy status to penicillin; Z88.8 Allergy status to other drugs, medicaments and biological substances; Z79.899 Other long term (current) drug therapy
CPT/HCPCS: 81025; 64405; J1040; J2795

== ENCOUNTER → 2023-10-24 | Outpatient (CLI) | payer OTHER ==
[2023-10-24 09:14] VITALS: BP 102/71; PULSE 93; RESP 16; TEMP 97.1
--- NOTE | 2023-10-24 15:13 | P.PAINPG ---
PQRS Measure Charge Sheet Comment: A 38 yr old female w caregiver at side with a history of severe and chronic neck pain secondary to cervical DDD and spondylosis with facet arthropathy without myelopathy presents today for evaluation s/p BL NASIM #2 and medication refills. Pt states she experienced 90% pain relief x 5 wks s/p procedure. Pain gloria carrero is provoked at 2/10 in intensity, intermittent, localized in the upper cervical spine, achy in character w shooting towards the top of the head. Pain is provoked by sounds, bright lights, cold weather. Pain is alleviated with PT x 12-16 wks in Aug 2022, botox injections every 2 mo for MCCALLUM pain, physician guided home exercise, chiropractic treatments semi monthly which she is currently in, heat, medications, topical, laying in a darkened room and rest. Cervical disability pain score of 24. Interventional pain procedures completed include BL RFA C2-C4 (Dec 2022, Jun 2023), BL NASIM x2 Patient is currently on Toradol, Topamax, Reglan, Fioricet, Aleve, ASA, Excedrin Migraine Patient denies any side effects of the medication(s), denies excessive drowsiness or sleepiness, denies suicidal ideation and reports that the current pain medication is helping to control the pain and improve activities of daily living. Patient denies any motor or sensory deficits. Patient denies any fever or night sweats, denies any change in the bowel movements or urination. Physical Examination: -Constitutional: Cooperative. Not in acute distress . - Neurologic: Cranial nerve II to XII intact. No focal neurological deficits. - Psychatric: Alert & oriented x 3. Matching mood & appropriate affect. Judgment and insight intact. - Musculoskeletal: Cervical spine: +BL NASIM TTP Muscle bulk/ tone/ strength in the bilateral upper extremities normal Vertebral body tenderness to palpation over Spurling test positive Distraction test positive Facet loading test positive Thoracic spine Muscle bulk / tone/ strength in the bilateral paraspinal muscles normal Vertebral body tender to palpation over Facet loading test positive TTP Lumbar spine: Motor bulk/ tone/ strength lower extremities , thigh and legs : 5/5 Deep tendon reflexes : Normal Knee Jerk. Normal Ankle Jerk . Vertebral body tenderness to palpation over Lumbar Facet Loading Test positive Straight Leg Raise: positive at 30 degrees right side/ left side Gaenslen's Test positive Sacral spine : Severe tenderness over the Sacroiliac joint: right side / left side Range of motion: Flexion of the lumbar spine <60 degrees Range of motion: Extension of the lumbar spine <20 degrees Gaenslen's Test positive R / L Mariam test: positive right side / left side Thigh Thrust Test positive R / L Sacral Thrust Test positive R/ L Assessment and plan: Chronic neck pain secondary to cervicogenic MCCALLUM and occipital neuralgia Chronic and current use of high-risk medication (Opioids). The patient was counseled about risk of opioid use, psychological risk associated with opioids and was orally counseled to not overuse , divert or sell medications. Pt is to store medication in a safe location. The patient is counseled against driving while using narcotic medications and also not to use alcohol or any illicit recreational drugs. Patient verbalized understanding that the lack of compliance will result in failure to renew narcotic prescription(s) as well as possible discharge from the clinic Diagnoses, prognosis and treatment options including but not limited to physical therapy, surgical interventions, interventional therapies and medication management including narcotics and adjuvant medication were discussed. All patient questions answered MAPS reviewed and it was appropriate. Refills of 30mg/2mL Toradol inj, 1cc 1/2" 28 ga needletip syringes, Voltaren, Reglan, Lidocaine 5% topical w 1 RF I have spent less than 30 minutes on patient care today. Dr Sung was availa ble by phone for the evaluation of this patient. The time was used to review the medical records including relevant urine studies and Prescription history (MAPs), review of the available imaging, evaluation and examination of the patient, coordination of care with the medical staff and if applicable referring physicians, as well as creation of the medical record PQRS Narrative: Smoking Status Never smoker Hx Alcohol Use (MH) No Home Medications: Ambulatory Orders Atomoxetine HCl [Strattera] 80 mg PO QAM 11/16/14 Folic Acid 1 mg PO DAILY 11/16/14 carBAMazepine [TEGretol] 200 mg PO 1200 11/16/14 carBAMazepine [TEGretol] 200 mg PO AC-BRKFST 11/16/14 fluvoxaMINE MALEATE [Luvox] 200 mg PO QAM 11/16/14 lamoTRIgine [LaMICtal] 100 mg PO BID 11/16/14 carBAMazepine [TEGretol] 100 mg PO HS 08/09/22 diazePAM [Diastat] 10 mg RECTAL ONCE PRN #2 kit 11/14/22 Aspirin 325 mg PO DIRECTED PRN 06/25/23 Naproxen Sodium [Aleve] 220 mg PO DIRECTED PRN 06/25/23 Metoclopramide [Reglan] 10 mg PO TID PRN 30 Days #60 tab 08/28/23 Diclofenac Sodium Gel [Voltaren 1% Gel] 4 gm TOPICAL BID PRN 30 Days #100 gm 10/24/23 KETOROLAC (30 mg/mL) [TORADOL (30 mg/mL)] 30 mg IM BID PRN 30 Days #60 each 10/24/23 Lidocaine 5% Oint [Xylocaine 5% Oint] 1 applic TOPICAL BID PRN 30 Days #50 gm 10/24/23 Syringe and Needle,Insulin,1Ml [Insulin Syringe 28G 1/2" 1ML] 1 syr IM DIRECTED 30 Days #60 each 10/24/23 Controlled Substance Measures - Controlled Substance Measures Is patient prescribed a controlled substance at discharge?: No
== END ==
LOC: PNWHC3 08:18
PROVIDERS: ATTEND Specialist
DX: M54.81 Occipital neuralgia (principal); G44.86 Cervicogenic headache; G89.29 Other chronic pain; Z79.891 Long term (current) use of opiate analgesic; Z79.82 Long term (current) use of aspirin; Z88.1 Allergy status to other antibiotic agents; Z88.5 Allergy status to narcotic agent; Z88.8 Allergy status to other drugs, medicaments and biological substances; Z88.0 Allergy status to penicillin
CPT/HCPCS: 99211

== ENCOUNTER → 2023-12-19 | Outpatient (CLI) | payer OTHER ==
[2023-12-19 16:12] LABS: ALT 12 U/L (8-44); AST 13 U/L (13-35); Albumin 4.5 g/dL (3.8-4.9); Alkaline Phosphatase 68 U/L (41-126); BUN/Creat Ratio 21.43 Ratio (12.00-20.00); Calcium 9.5 mg/dL (8.7-10.3); Carbon Dioxide 25.1 mmol/L (21.6-31.8); Chloride 105 mmol/L (96-109); Globulin 2.5 g/dL (1.6-3.3); Glucose 84 mg/dL (70-110); LDL Cholesterol,Calculated 92.4 mg/dL (0.0-131.0); Potassium 4.1 mmol/L (3.5-5.5); Sodium 141 mmol/L (135-145); Total Bilirubin 0.2 mg/dL (0.3-1.2); VLDL Calculation 10.58 mg/dL (5.00-40.00)
[2023-12-19 17:20] LABS: Carbamazepine (Tegretol) 10.7 UG/ML (4.0-12.0)
== END | disposition home or self-care (01) ==
LOC: LABWHC1 09:05
PROVIDERS: ATTEND Family Medicine
DX: E55.9 Vitamin D deficiency, unspecified (principal); E78.5 Hyperlipidemia, unspecified; G40.909 Epilepsy, unspecified, not intractable, without status epilepticus
CPT/HCPCS: 36415; 80053; 80061; 80156; 80175; 82306

== ENCOUNTER → 2023-12-19 | Outpatient (CLI) | payer OTHER ==
[2023-12-19 08:51] VITALS: BP 122/68; PULSE 79; RESP 15; TEMP 98.7
--- NOTE | 2023-12-19 13:39 | P.PAINPG ---
PQRS Measure Charge Sheet Comment: A 38 yr old female w mother/ caregiver at side with a history of severe and chronic neck pain secondary to cervical DDD and spondylosis with facet arthropathy without myelopathy presents today for medication refills. Pain level is provoked at 9 /10 in intensity, intermittent, localized in the upper cervical spine, predominantly axial, achy in character w occasional shooting pain up the scalp. Pain is provoked by sounds, bright lights, cold weather. Pain is alleviated with PT x 12-16 wks in Aug 2022, botox injections every 2 mo for MCCALLUM pain, physician guided home exercise 5 times weekly every morning since 2021, chiropractic treatments semi monthly x 4 mo which she is currently in, heat, medications, topical, laying in a darkened room and rest. Cervical disability pain score of 22. Interventional pain procedures completed include BL RFA C2-C4 (Dec 2022, Jun 2023), BL NASIM x2 Patient is currently on Toradol, Topamax, Reglan, Fioricet, Aleve, ASA, Excedrin Migraine Patient denies any side effects of the medication(s), denies excessive drowsiness or sleepiness, denies suicidal ideation and reports that the current pain medication is helping to control the pain and improve activities of daily living. Patient denies any motor or sensory deficits. Patient denies any fever or night sweats, denies any change in the bowel movements or urination. Physical Examination: -Constitutional: Cooperative. Not in acute distress . - Neurologic: Cranial nerve II to XII intact. No focal neurological deficit s. - Psychatric: Alert & oriented x 3. Matching mood & appropriate affect. Judgment and insight intact. - Musculoskeletal: Cervical spine: +BL NASIM TTP Muscle bulk/ tone/ strength in the bilateral upper extremities normal Vertebral body tenderness to palpation over Spurling test positive Distraction test positive Facet loading test positive Thoracic spine Muscle bulk / tone/ strength in the bilateral paraspinal muscles normal Vertebral body tender to palpation over Facet loading test positive TTP Lumbar spine: Motor bulk/ tone/ strength lower extremities , thigh and legs : 5/5 Deep tendon reflexes : Normal Knee Jerk. Normal Ankle Jerk . Vertebral body tenderness to palpation over Lumbar Facet Loading Test positive Straight Leg Raise: positive at 30 degrees right side/ left side Gaenslen's Test positive Sacral spine : Severe tenderness over the Sacroiliac joint: right side / left side Range of motion: Flexion of the lumbar spine <60 degrees Range of motion: Extension of the lumbar spine <20 degrees Gaenslen's Test positive R / L Mariam test: positive right side / left side Thigh Thrust Test positive R / L Sacral Thrust Test positive R/ L Assessment and plan: Chronic neck pain secondary to cervicogenic MCCALLUM and occipital neuralgia Recommendation of BL NASIM injection #3. May need a series of injections for optimal pain relief. Risks, benefits of procedure discussed and patient verbalized understanding. Protocol for discontinuation/continuation of medications surrounding procedure discussed. Chronic and current use of high-risk medication (Opioids). The patient was counseled about risk of opioid use, psychological risk associated with opioids and was orally counseled to not overuse , divert or sell medications. Pt is to store medication in a safe location. The patient is counseled against driving while using narcotic medications and also not to use alcohol or any illicit recreational drugs. Patient verbalized understanding that the lack of compliance will result in failure to renew narcotic prescription(s) as well as possible discharge from the clinic Diagnoses, prognosis and treatment options including but not limited to physical therapy, surgical interventions, interventional therapies and medication management including narcotics and adjuvant medication were discussed. All patient questions answered MAPS reviewed and it was appropriate. Black box warning of TD involuntary, rapid movements of muscles discussed. Refills of 30mg/2mL Toradol inj, 1cc 1/2" 28 ga needletip syringes, Voltaren, Reglan, Lidocaine 5% topical w 1 RF I have spent less than 30 minutes on patient care today. Dr Sung was available by phone for the evaluation of this patient. The time was used to review the medical records including relevant urine studies and Prescription history (MAPs), review of the available imaging, evaluation and examination of the patient, coordination of care with the medical staff and if applicable referring physicians, as well as creation of the medical record PQRS Narrative: Smoking Status Never smoker Hx Alcohol Use (MH) No Home Medications: Ambulatory Orders Atomoxetine HCl [Strattera] 80 mg PO QAM 11/16/14 Folic Acid 1 mg PO DAILY 11/16/14 carBAMazepine [TEGretol] 200 mg PO 1200 11/16/14 carBAMazepine [TEGretol] 200 mg PO AC-BRKFST 11/16/14 fluvoxaMINE MALEATE [Luvox] 200 mg PO QAM 11/16/14 lamoTRIgine [LaMICtal] 100 mg PO BID 11/16/14 carBAMazepine [TEGretol] 100 mg PO HS 06/12/22 diazePAM [Diastat] 10 mg RECTAL ONCE PRN #2 kit 11/14/22 Aspirin 325 mg PO DIRECTED PRN 06/25/23 Naproxen Sodium [Aleve] 220 mg PO DIRECTED PRN 06/25/23 Diclofenac Sodium Gel [Voltaren 1% Gel] 4 gm TOPICAL BID PRN 30 Days #100 gm 12/19/23 KETOROLAC (30 mg/mL) [TORADOL (30 mg/mL)] 30 mg IM BID PRN 30 Days #60 each 12/19/23 Lidocaine 5% Oint [Xylocaine 5% Oint] 1 applic TOPICAL BID PRN 30 Days #50 gm 12/19/23 Metoclopramide [Reglan] 10 mg PO TID PRN 30 Days #60 tab 12/19/23 Syringe and Needle,Insulin,1Ml [Insulin Syringe 28G 1/2" 1ML] 1 syr IM DIRECTED 30 Days #60 each 12/19/23 Controlled Substance Measures - Controlled Substance Measures Is patient prescribed a controlled substance at discharge?: No
== END ==
LOC: PNWHC3 08:26
PROVIDERS: ATTEND Specialist
DX: M54.81 Occipital neuralgia (principal); G44.86 Cervicogenic headache; G89.29 Other chronic pain; Z79.891 Long term (current) use of opiate analgesic; Z79.82 Long term (current) use of aspirin; Z88.1 Allergy status to other antibiotic agents; Z88.5 Allergy status to narcotic agent; Z88.8 Allergy status to other drugs, medicaments and biological substances; Z88.0 Allergy status to penicillin
CPT/HCPCS: 99211

== ENCOUNTER 2024-01-02 09:15 | Day surgery (SDC) | payer OTHER ==
[2024-01-02 11:39] VITALS: RESP 16; TEMP 98.5
[2024-01-02] MEDS ORDERED: ROPIVACAINE 5MG/ML 20ML VIAL ONE (11:59)
[2024-01-02] MEDS ORDERED: methylPREDNISolone ACETATE 80 MG/ML 1 ML VIAL ONE (11:59)
--- NOTE | 2024-01-02 12:10 | P.PCN ---
Description of Procedure: Preoperative diagnoses= 1- Greater occipital neuralgia Postoperative diagnoses= 1-greater occipital neuralgia Procedure= Bilateral Greater occipital nerve block Anesthesia= local only Procedure indication= the patient had a history of severe chronic neck pain ,and headache, diagnosed with occipital neuralgia exam was positive for severe tenderness over the occipital nerve bilaterally, she will be a good candidate occipital nerve block, patient failed conservative management Procedure description= the patient was seen and identified in the preoperative holding area, risks and benefits and alternative of the procedure and possible complications discussed with the patient, and he agreed with the preceding, patient signed the consent, and vital signs were monitored and were stable throughout the procedure, patient was placed in the sitting position or table and the neck area was prepped and draped with a sterile fashion, vital signs were closely monitored during the procedure, 25-gauge needle advanced over the superior name L Aware trapezius and sternocleidomastoid meets, occipital artery was palpated and the needle was medial to the occipital artery. then after negative aspiration for heme and CSF and there was no paresthesia during the injection, 3 mL of ropivacaine 0.5% mixed with 40 mg of Depo-Medrol injected on each side after negative aspiration, the needle removed, and the entire same procedure was repeated for the left Greater occipital nerve. Patient tolerated the procedure well without any complication, The patient returned to supine position after the back was cleaned and a Band- Aid applied, the patient transported to recovery room in stable condition and he was monitored for 30 minutes before he was discharged home and then patient was reexamined before going home and patient was discharged in stable condition and patient will follow up with the pain clinic in a few weeks.
[2024-01-02 12:13] VITALS: BP 106/71; PULSE 80
== END 2024-01-02 12:20 | disposition home or self-care (01) ==
LOC: ORPAIN 09:15
PROVIDERS: ATTEND Pain Medicine Interventional Pain Medicine
DX: M54.81 Occipital neuralgia (principal); Z88.0 Allergy status to penicillin; Z88.5 Allergy status to narcotic agent; Z88.1 Allergy status to other antibiotic agents
CPT/HCPCS: 81025; 64405; J1040; J2795

== ENCOUNTER → 2024-02-13 | Outpatient (CLI) | payer OTHER ==
[2024-02-13 08:47] VITALS: BP 97/68; PULSE 94; RESP 16
--- NOTE | 2024-02-13 14:45 | P.PAINPG ---
PQRS Measure Charge Sheet Comment: A 38 yr old female w mother/ caregiver at side with a history of severe and chronic neck pain secondary to cervical DDD and spondylosis with facet arthropathy without myelopathy presents today for medication refills and evaluation s/p BL NASIM injection #3. Pt states she experienced % pain relief x 6 wks s/p procedure. Pain level is provoked at 9 /10 in intensity, intermittent, localized in the upper cervical spine, predominantly axial, achy in character w occasional shooting pain up the scalp. Pain is provoked by sounds, bright lights, cold weather. Pain is alleviated with PT x 12-16 wks in Aug 2022, botox injections every 2 mo for MCCALLUM pain, physician guided home exercise 5 times weekly every morning since 2021, chiropractic treatments semi monthly x 4 mo which she is currently in, heat, medications, topical, laying in a darkened room and rest. Cervical disability pain score of 22. Interventional pain procedures completed include BL RFA C2-C4 (Dec 2022, Jun 2023), BL NASIM x3 Patient is currently on Toradol, Topamax, Reglan, Fioricet, Aleve, ASA, Excedrin Migraine Patient denies any side effects of the medication(s), denies excessive drowsiness or sleepiness, denies suicidal ideation and reports that the current pain medication is helping to control the pain and improve activities of daily living. Patient denies any motor or sensory deficits. Patient denies any fever or night sweats, denies any change in the bowel movements or urination. Physical Examination: -Constitutional: Cooperative. Not in acute distress . - Neurologic: Cranial nerve II to XII intact. No focal neurological deficits. - Psychatric: Alert & oriented x 3. Matching mood & appropriate affect. Judgment and insight intact. - Musculoskeletal: Cervical spine: +BL NASIM TTP Muscle bulk/ tone/ strength in the bilateral upper extremities normal Vertebral body tenderness to palpation over Spurling test positive Distraction test positive Facet loading test positive Thoracic spine Muscle bulk / tone/ strength in the bilateral paraspinal muscles normal Vertebral body tender to palpation over Facet loading test positive TTP Lumbar spine: Motor bulk/ tone/ strength lower extremities , thigh and legs : 5/5 Deep tendon reflexes : Normal Knee Jerk. Normal Ankle Jerk . 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 May need a series of injections for optimal pain relief. Risks, benefits of procedure discussed and patient verbalized understanding. Protocol for discontinuation/continuation of medications surrounding procedure discussed. Chronic and current use of high-risk medication (Opioids). The patient was counseled about risk of opioid use, psychological risk associated with opioids and was orally counseled to not overuse , divert or sell medications. Pt is to store medication in a safe location. The patient is counseled against driving while using narcotic medications and also not to use alcohol or any illicit recreational drugs. Patient verbalized understanding that the lack of compliance will result in failure to renew narcotic prescription(s) as well as possible discharge from the clinic Diagnoses, prognosis and treatment options including but not limited to physical therapy, surgical interventions, interventional therapies and medication management including narcotics and adjuvant medication were discussed. All patient questions answered MAPS reviewed and it was appropriate. Black box warning of TD involuntary, rapid movements of muscles discussed. Refills of 30mg/2mL Toradol inj, 1cc 1/2" 28 ga needletip syringes, Voltaren, Reglan, Lidocaine 5% topical w 1 RF I have spent less than 30 minutes on patient care today. Dr Sung was available by phone for the evaluation of this patient. The time was used to review the medical records including relevant urine studies and Prescription history (MAPs), review of the available imaging, evaluation and examination of the patient, coordination of care with the medical staff and if applicable referring physicians, as well as creation of the medical record PQRS Narrative: Smoking Status Never smoker Hx Alcohol Use (MH) No Home Medications: Ambulatory Orders Atomoxetine HCl [Strattera] 80 mg PO QAM 11/16/14 carBAMazepine [TEGretol] 200 mg PO 1200 11/16/14 carBAMazepine [TEGretol] 200 mg PO AC-BRKFST 11/16/14 fluvoxaMINE MALEATE [Luvox] 200 mg PO QAM 11/16/14 lamoTRIgine [LaMICtal] 100 mg PO BID 11/16/14 carBAMazepine [TEGretol] 100 mg PO HS 06/12/22 diazePAM [Diastat] 10 mg RECTAL ONCE PRN #2 kit 11/14/22 Aspirin 325 mg PO DIRECTED PRN 06/25/23 Naproxen Sodium [Aleve] 220 mg PO DIRECTED PRN 06/25/23 Multivitamins, Thera [Multivitamin (formulary)] 1 tab PO QAM 01/01/24 Topiramate [Topamax] 100 mg PO DAILY PRN 01/01/24 Diclofenac Sodium Gel [Voltaren 1% Gel] 4 gm TOPICAL BID PRN 30 Days #100 gm 02/13/24 KETOROLAC (30 mg/mL) [TORADOL (30 mg/mL)] 30 mg IM BID PRN 30 Days #60 each 02/13/24 Lidocaine 5% Patch [Lidoderm] 1 each TP DAILY 30 Days #30 patch 02/13/24 Metoclopramide [Reglan] 10 mg PO TID PRN 30 Days #60 tab 02/13/24 Syringe and Needle,Insulin,1Ml [Insulin Syringe 28G 1/2" 1ML] 1 syr SQ DIRECTED PRN 30 Days #60 each 02/13/24 Controlled Substance Measures - Controlled Substance Measures Is patient prescribed a controlled substance at discharge?: No
== END ==
LOC: PNWHC3 08:17
PROVIDERS: ATTEND Anesthesiology
DX: M54.81 Occipital neuralgia (principal); G44.86 Cervicogenic headache; G89.29 Other chronic pain; Z79.891 Long term (current) use of opiate analgesic; Z88.1 Allergy status to other antibiotic agents; Z88.5 Allergy status to narcotic agent; Z88.8 Allergy status to other drugs, medicaments and biological substances; Z88.0 Allergy status to penicillin
CPT/HCPCS: 99211

== ENCOUNTER 2024-03-17 07:02 | Day surgery (SDC) | payer OTHER ==
[2024-03-16 11:09] VITALS: BMI 21.9
[2024-03-17] MEDS ORDERED: methylPREDNISolone ACETATE 40 MG/ML 1 ML VIAL ONE (07:27)
[2024-03-17] MEDS ORDERED: ROPIVACAINE 5MG/ML 20ML VIAL ONE (07:27)
[2024-03-17 07:35] VITALS: RESP 16; TEMP 98.8
--- NOTE | 2024-03-17 08:04 | P.PCN ---
Date of Procedure: 03/17/24 Description of Procedure: Pre-operative diagnosis: greater occipital neuralgia Post Operative Diagnosis: greater occipital neuralgia Procedure: bilateralgreater occipital nerve block under ultrasound - Ultrasound used to place needle and avoid vascular structures. Anesthesia: local with 1% lidocaine and IV sedation per nurse anesthesia Sedation administered by: local only PROCEDURE INDICATION: The patient with neck pain and headache secondary to occipital neuralgia unresponsive to conservative treatments. PROCEDURE DESCRIPTION / TECHNIQUE: The patient was seen and identified in the preoperative area. Risks, benefits, complications, and alternatives were discussed with the patient, the patient agreed to proceed with the procedure and signed the consent. Vital signs remained stable throughout the procedure. Patient was taken to the OR and time out was completed. The patient was placed in the sitting position on the procedure table. The cervical area and occiptial area were prepped with alcohol swab. Critical pause was taken. Vital signs were closely monitored during the procedure. Conscious sedation was used during the procedure to decrease patients anxiety. Right side: Ultrasound was used and the occipital artery was visualized exiting the skull about 2-3 cm lateral and 2cm inferior to the occipital protuberance On the right side. Then after negative aspiration, a 25g needed was introduced under ultrasound, negative aspiration confirmed and then 3 ml of the block solution containing 2.5 ml of PF Ropivaciane 0.5% and dexamethasone 5mg was injected after negative aspiration. Needle was withdrawn intact. Left side: Ultrasound was used and the occipital artery was visualized exiting the skull about 2-3 cm lateral and 2cm inferior to the occipital protuberance On the left side. Then after negative aspiration, a 25g needed was introduced under ultrasound, negative aspiration confirmed and then 3 ml of the block solution containing 2.5 ml of PF Ropivaciane 0.5% and dexamethasone 5mg was injected after negative aspiration. Needle was withdrawn intact. Patient tolerated procedure well. No acute complications.
[2024-03-17 08:24] VITALS: BP 98/66; PULSE 85
== END 2024-03-17 08:00 | disposition home or self-care (01) ==
LOC: ORPAIN 07:02
PROVIDERS: ATTEND Hospitalist
DX: M54.81 Occipital neuralgia (principal); H54.8 Legal blindness, as defined in USA; Z79.82 Long term (current) use of aspirin; Z79.1 Long term (current) use of non-steroidal anti-inflammatories (NSAID); Z88.5 Allergy status to narcotic agent; Z88.0 Allergy status to penicillin; Z88.1 Allergy status to other antibiotic agents; Z88.8 Allergy status to other drugs, medicaments and biological substances
CPT/HCPCS: 81025; 64405; J2795; J1010

== ENCOUNTER → 2024-04-09 | Outpatient (CLI) | payer OTHER ==
[2024-04-09 09:37] VITALS: BP 99/57; PULSE 93; RESP 16; TEMP 97.8
--- NOTE | 2024-04-09 14:30 | P.PAINPG ---
PQRS Measure Charge Sheet Comment: A 38 yr old female w mother/ caregiver at side with a history of severe and chronic neck pain secondary to cervical DDD and spondylosis with facet arthropathy without myelopathy presents today for medication refills and evaluation s/p BL NASIM injection #4. Pt states she experienced 50 % pain relief x 3 wks s/p procedure. Pt stated she had a BL RFA C2-C4 in Jun 2023 where she experienced 75% pain relief x 6 mo s/p procedure. Pain level is provoked at 7 /10 in intensity, intermittent, localized in the upper cervical spine, predominantly axial, achy in character w occasional shooting pain up the scalp. Pain is provoked by sounds, bright lights, cold weather. Pain is alleviated with PT x 12-16 wks in Aug 2022, botox injections every 2 mo for MCCALLUM pain, physician guided home exercise 5 times weekly every morning since 2021, chiropractic treatments semi monthly x 4 mo which she is currently in, heat, medications, topical, laying in a darkened room and rest. Cervical disability pain score of 22. Interventional pain procedures completed include BL RFA C2-C4 (Dec 2022, Jun 2023), BL NASIM x4 Patient is currently on Toradol, Topamax, Reglan, Fioricet, Aleve, ASA, Excedrin Migraine Patient denies any side effects of the medication(s), denies excessive drowsiness or sleepiness, denies suicidal ideation and reports that the current pain medication is helping to control the pain and improve activities of daily living. Patient denies any motor or sensory deficits. Patient denies any fever or night sweats, denies any change in the bowel movements or urination. Physical Examination: -Constitutional: Cooperative. Not in acute distress . - Neurologic: Cranial nerve II to XII intact. No focal neurological deficits. - Psychatric: Alert & oriented x 3. Matching mood & appropriate affect. Judgment and insight intact. - Musculoskeletal: Cervical spine: Muscle bulk/ tone/ strength in the bilateral upper extremities normal Vertebral body tenderness to palpation over Spurling test positive Distraction test positive Facet loading test positive BL C2-C3, C3-C4 Thoracic spine Muscle bulk / tone/ strength in the bilateral paraspinal muscles normal Vertebral body tender to palpation over Facet loading test positive TTP Lumbar spine: Motor bulk/ tone/ strength lower extremities , thigh and legs : 5/5 Deep tendon reflexes : Normal Knee Jerk. Normal Ankle Jerk . 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 Patient exhibited substantial pain relief with prior BL RFA C2-C4 in June 2023. Risk, benefits of procedure discussed and patient verbalized understanding. Protocol for discontinuation/continuation of medication surrounding procedure discussed. Minimal anesthesia including Fentanyl and Versed if clinically indicated. Chronic and current use of high-risk medication (Opioids). The patient was counseled about risk of opioid use, psychological risk associated with opioids and was orally counseled to not overuse , divert or sell medications. Pt is to store medication in a safe location. The patient is counseled against driving while using narcotic me dications and also not to use alcohol or any illicit recreational drugs. Patient verbalized understanding that the lack of compliance will result in failure to renew narcotic prescription(s) as well as possible discharge from the clinic Diagnoses, prognosis and treatment options including but not limited to physical therapy, surgical interventions, interventional therapies and medic ation management including narcotics and adjuvant medication were discussed. All patient questions answered MAPS reviewed and it was appropriate. Black box warning of TD involuntary, rapid movements of muscles discussed. Refills of 30mg/2mL Toradol inj, 1cc 1/2" 28 ga needletip syringes, Voltaren, Reglan, Lidocaine 5% topical w 1 RF I have spent less than 30 minutes on patient care today. Dr Sung was available by phone for the evaluation of this patient. The time was used to review the medical records including relevant urine studies and Prescription history (MAPs), review of the available imaging, evaluation and examination of the patient, coordination of care with the medical staff and if applicable referring physicians, as well as creation of the medical record PQRS Narrative: Smoking Status Never smoker Hx Alcohol Use (MH) No Home Medications: Ambulatory Orders Atomoxetine HCl [Strattera] 80 mg PO QAM 11/16/14 carBAMazepine [TEGretol] 200 mg PO 1200 11/16/14 carBAMazepine [TEGretol] 200 mg PO AC-BRKFST 11/16/14 fluvoxaMINE MALEATE [Luvox] 200 mg PO QAM 11/16/14 lamoTRIgine [LaMICtal] 100 mg PO BID 11/16/14 carBAMazepine [TEGretol] 100 mg PO HS 06/12/22 diazePAM [Diastat] 10 mg RECTAL ONCE PRN #2 kit 11/14/22 Aspirin 325 mg PO DIRECTED PRN 06/25/23 Naproxen Sodium [Aleve] 220 mg PO DIRECTED PRN 06/25/23 Multivitamins, Thera [Multivitamin (formulary)] 1 tab PO QAM 01/01/24 Topiramate [Topamax] 100 mg PO DAILY PRN 01/01/24 Atogepant [Qulipta] 10 mg PO DIRECTED PRN 03/16/24 Divalproex Sodium 250 mg PO DAILY 03/16/24 Diclofenac Sodium Gel [Voltaren 1% Gel] 4 gm TOPICAL BID PRN 30 Days #100 gm 04/09/24 KETOROLAC (30 mg/mL) [TORADOL (30 mg/mL)] 30 mg IM BID PRN 30 Days #60 each 04/09/24 Lidocaine 5% Patch [Lidoderm 5% Patch] 1 each TP DAILY 30 Days #30 patch 04/09/24 Metoclopramide [Reglan] 10 mg PO TID PRN 30 Days #60 tab 04/09/24 Syringe and Needle,Insulin,1Ml [Insulin Syringe 28G 1/2" 1ML] 1 syr SQ DIRECTED PRN 30 Days #60 each 04/09/24 Controlled Substance Measures - Controlled Substance Measures Is patient prescribed a controlled substance at discharge?: No
== END ==
LOC: PNWHC3 08:22
PROVIDERS: ATTEND Specialist
DX: M54.81 Occipital neuralgia (principal); G44.86 Cervicogenic headache; G89.29 Other chronic pain; Z79.891 Long term (current) use of opiate analgesic; Z88.1 Allergy status to other antibiotic agents; Z88.5 Allergy status to narcotic agent; Z88.8 Allergy status to other drugs, medicaments and biological substances; Z88.0 Allergy status to penicillin
CPT/HCPCS: 99211

== ENCOUNTER 2024-04-23 06:12 | Day surgery (SDC) | payer OTHER ==
[2024-04-23 06:37] VITALS: TEMP 97
[2024-04-23] MEDS: LACTATED RINGERS 1,000 ML IV SCH (06:45)
[2024-04-23] MEDS: IV FLUID CONTINUATION 1,000 ML IV ONE (06:46)
[2024-04-23] MEDS ORDERED: fentaNYL (PF) 50 MCG/ML 2 ML AMP ONE (07:06)
[2024-04-23] MEDS ORDERED: MIDAZOLAM 2 MG/2 ML VIAL ONE (07:06)
[2024-04-23] MEDS ORDERED: ROPIVACAINE 5MG/ML 20ML VIAL ONE (07:06)
[2024-04-23] MEDS: IV FLUID CONTINUATION 500 ML IV ONE (07:49)
[2024-04-23 07:56] VITALS: RESP 16
[2024-04-23 08:13] VITALS: BP 102/68; PULSE 83
--- NOTE | 2024-04-23 08:26 | FL ---
EXAMINATION TYPE: FL guided pain mgmt statistic Intraoperative/procedural fluoroscopic services were provided. Total fluoroscopy time is 17.2 seconds with a total of 6 submitted images to PACS. Please s ee the operative/procedural note for further details. DAP: [id number] mGym2
--- NOTE | 2024-04-23 08:44 | P.PCN ---
Description of Procedure: Procedure done. Right C2-3, C3-4 facet joint (C3,C4 medial branch of dorsal ramus and third occipital nerve) radiofrequency ablation under fluoroscopic guidance. Anesthesia. Continuous pulse ox, EKG, blood pressure and verbal communication was maintained with the patient in OR. Blood loss. None. Indication. Patient has got the diagnoses of cervical spondylolysis, facet joint arthropathy with neck pain. Diagnostic medial branch block relieved significant pain. Discussed with the patient procedure, alternatives, complications including infection, bleeding, nerve damage, paralysis all of which could be permanent. Patient understands and all questions are answered. Procedure note. After getting consent patient in OR in prone position. Back of the neck was prepped with chlorhexidine and draped in sterile fashion. After injecting 3 mL of plain 1% lidocaine subcutaneously, a 20-gauge RFA needle was introduced under tunnel vision of the fluoroscope AP view at the waist of the articular pillar (lateral mass) at C4 vertebral level. In the lateral view of the fluoroscope it was confirmed that the tip of the needle stayed within the dorsal half of the articular pillar (lateral mass). C3-4 facet joint was targeted by blocking C4 and C3 medial branch, C2-3 facet joint was targeted by blocking C3 medial branch and third occipital nerve. In exactly the same way , after subcutaneous injection of lidocaine, 20-gauge RFA needle were introduced under tunnel vision of the fluoroscope AP view at the waist of the articular pillars (lateral mass) at C3 vertebral level. In the lateral view of the fluoroscope it was confirmed that the tip of the needle stayed within the dorsal half of the articular pillar (lateral mass). To target third occipital nerve needle was placed at the lateral border of C2-3 zygapophyseal joint itself. After positive sensory and negative motor stimulation, radiofrequency ablation w as done at 80 C's for 90 seconds. Second lesion was done at the same settings after rotating the needls 180 degrees. After the procedure needle was taken out and bandage was applied. Disposition. Patient tolerated the procedure well. No complication. Discharged home in stable condition.
== END 2024-04-23 08:22 | disposition home or self-care (01) ==
LOC: ORPAIN 06:12
PROVIDERS: ATTEND Pain Medicine Interventional Pain Medicine
DX: M47.812 Spondylosis without myelopathy or radiculopathy, cervical region (principal); Z88.5 Allergy status to narcotic agent; Z88.0 Allergy status to penicillin; Z88.1 Allergy status to other antibiotic agents; Z88.8 Allergy status to other drugs, medicaments and biological substances; Z79.1 Long term (current) use of non-steroidal anti-inflammatories (NSAID)
CPT/HCPCS: 81025; 64633; 64634; J2250; J3010; J2795; 99152

== ENCOUNTER 2024-05-05 06:10 | Day surgery (SDC) | payer OTHER ==
[2024-05-05] MEDS: LACTATED RINGERS 1,000 ML BAG IV STA (06:52)
[2024-05-05 06:54] VITALS: TEMP 98
[2024-05-05] MEDS: IV FLUID CONTINUATION 1,000 ML IV ONE ×2 (06:56→07:41)
[2024-05-05] MEDS ORDERED: MIDAZOLAM 2 MG/2 ML VIAL ONE (07:05)
[2024-05-05] MEDS ORDERED: ROPIVACAINE 5MG/ML 20ML VIAL ONE (07:05)
[2024-05-05] MEDS ORDERED: methylPREDNISolone ACETATE 40 MG/ML 1 ML VIAL ONE (07:05)
[2024-05-05] MEDS ORDERED: fentaNYL (PF) 50 MCG/ML 2 ML AMP ONE (07:05)
--- NOTE | 2024-05-05 07:36 | P.PCN ---
Date of Procedure: 05/05/24 Procedure(s) Performed: PREOPERATIVE DIAGNOSIS: 1-Cervical spondylosis with Facet Arthropathy without myelopathy. 2-cervicogenic headache. 3-occipital neuralgia POSTOPERATIVE DIAGNOSIS: Same as preop diagnosis. PROCEDURES: Radiofrequency thermocoagulation Left C2 ,C3, C4. medial branch with Fluroscopy Guidence(fluoroscopy was available in Radiology department ) (to denervate the facet joint at Left C2-3 , C3- 4) ANESTHESIA: Sedation with Versed 2 mg and fentanyl 100 mcg, (sedation start time 07:05, end time 07:32 ). EBL: Minimal PROCEDURE INDICATION: The patient with neck pain secondary to cervical arthropathy who had more than 50% relief of her pain with previous diagnostic cervical medial branch block. PROCEDURE DESCRIPTION / TECHNIQUE: The patient was seen and identified in the preoperative area. Risks, benefits, complications, and alternatives were discussed with the patient, the patient agreed to proceed with the procedure and signed the consent. IV was started. Vital signs remained stable throughout the procedure. Patient was taken to the OR and time out was completed. The patient was placed in the prone position on the procedure table. A pillow was placed under the patients chest to increase the cervical interlaminar space. The cervical area was prepped and draped in the usual sterile fashion. Critical pause was taken. Vital signs were closely monitored during the procedure. Conscious sedation was used during the procedure to decrease patients anxiety. Using cross-table lateral fluoroscopy, the centroid of the trapezoid of Left C2 ,C3, C4 were identified, marked, and localized with 1% lidocaine. Subsequently, a 20 -gt radiofrequency cannula with a 10-mm active tip was advanced guided by fluoroscopy to the centroid of the trapezoid of Left C2 ,C3, C4, . Needle tip position was confirmed at the centroid of the trapezoids of left C2 ,C3, C4 with anteroposterior fluoroscopy. Each site then underwent sensory testing at 50 Hz and 0 to 1 volt and motor testing at 2 Hz and 0 to 3 volt with local stimulation, but no radicular symptoms down the arm. Thereafter each sites underwent radiofrequency thermocoagulation at 80 degrees celsius for 90 seconds after injecting 0.5 ml of PF Ropivacaine 0.5 %. After thermocoagulation, 1 ml of the block solution containing Depo-Medrol 20 mg and 3 mL of preservative-free 0.5% Ropivacaine was injected at the Left C2 ,C3, C4, levels after negative aspiration of CSF and blood and with no paresthesias. Cannulas were retracted while injecting lidocaine 1% until the needle is out. Then after that the ,at the end the Skin was cleansed and bandages were applied. COMPLICATIONS: No acute complications. DISPOSITION / PLANS: The patient was placed in a supine position and transferred to the recovery area in a stable condition for observation and was discharged from the recovery room after meeting discharge criteria. Home discharge instructions given to the patient by the staff. The patient was reexamined prior to discharge. The patient will schedule a follow up in the clinic in 2-4 weeks.
[2024-05-05 07:43] VITALS: RESP 16
--- NOTE | 2024-05-05 07:50 | FL ---
EXAMINATION TYPE: FL guided pain mgmt statistic DATE OF EXAM: 05/05/2024 FLUOROSCOPY Fluoroscopy time of 23.8 seconds was used during cervical radiofrequency ablation. 6 image/s documen t/s the procedure. Dap [id number] mGycm2.
[2024-05-05 07:51] VITALS: BP 94/61; PULSE 81
== END 2024-05-05 08:10 | disposition home or self-care (01) ==
LOC: ORPAIN 06:10
PROVIDERS: ATTEND Specialist
DX: M47.812 Spondylosis without myelopathy or radiculopathy, cervical region (principal); G44.86 Cervicogenic headache; M54.81 Occipital neuralgia; Z88.5 Allergy status to narcotic agent; Z88.0 Allergy status to penicillin; Z88.1 Allergy status to other antibiotic agents; Z88.8 Allergy status to other drugs, medicaments and biological substances; Z79.82 Long term (current) use of aspirin
CPT/HCPCS: 81025; 64633; 64634; 99152; 99153; J2250; J3010; J2795; J1010

== ENCOUNTER → 2024-06-25 | Outpatient (CLI) | payer OTHER | LOC: PNWHC3 09:15 | PROVIDERS: ATTEND Specialist | DX: M47.812 Spondylosis without myelopathy or radiculopathy, cervical region | CPT/HCPCS: 99211 ==

== ENCOUNTER → 2024-09-21 | Outpatient (CLI) | payer OTHER ==
[2024-09-21 09:45] VITALS: BP 110/66; PULSE 99; RESP 16
--- NOTE | 2024-09-21 15:05 | P.PAINPG ---
PQRS Measure Charge Sheet Comment: A 39 yr old female w mother/ caregiver at side with a history of severe and chronic neck pain secondary to cervical DDD and spondylosis with facet arthropathy without myelopathy presents today for evaluation. Pain level is provoked at 4 /10 in intensity, intermittent, localized in the upper cervical spine, predominantly axial, achy in character without shooting pain. Pain is provoked by sounds, bright lights, cold weather. Pain is alleviated with PT x 12-16 wks in Aug 2022, botox injections every 2 mo for MCCALLUM pain, physician guided home exercise 5 times weekly every morning since 2021, chiropractic treatments semi monthly x 4 mo which she is currently in, heat, medications, topical, laying in a darkened room and rest. Interventional pain procedures completed include BL RFA C2-C4 (Dec 2022, Jun 2023), BL NASIM x5 Patient is currently on Toradol, Topamax, Reglan, Fioricet, Aleve, ASA, Excedrin Migraine Patient denies any side effects of the medication(s), denies excessive drowsiness or sleepiness, denies suicidal ideation and reports that the current pain medication is helping to control the pain and improve activities of daily living. Patient denies any motor or sensory deficits. Patient denies any fever or night sweats, denies any change in the bowel movements or urination. Physical Examination: -Constitutional: Cooperative. Not in acute distress . - Neurologic: Cranial nerve II to XII intact. No focal neurological deficits. - Psychatric: Alert & oriented x 3. Matching mood & appropriate affect. Judgment and insight intact. - Musculoskeletal: Cervical spine: BL NASIM TTP Muscle bulk/ tone/ strength in the bilateral upper extremities normal Vertebral body tenderness to palpation over Spurling test positive Distraction test positive Facet loading test positive BL C2-C3, C3-C4 Thoracic spine Muscle bulk / tone/ strength in the bilateral paraspinal muscles normal Vertebral body tender to palpation over Facet loading test positive TTP Lumbar spine: Motor bulk/ tone/ strength lower extremities , thigh and legs : 5/5 Deep tendon reflexes : Normal Knee Jerk. Normal Ankle Jerk . Vertebral body tenderness to palpation over Lumbar Facet Loading Test positive Straight Leg Raise: positive at 30 degrees right side/ left side Gaenslen's Test positive Sacral spine : Severe tenderness over the Sacroiliac joint: right side / left side Range of motion: Flexion of the lumbar spine <60 degrees Range of motion: Extension of the lumbar spine <20 degrees Gaenslen's Test positive R / L Mariam test: positive right side / left side Thigh Thrust Test positive R / L Sacral Thrust Test positive R/ L Assessment and plan: Chronic neck pain secondary to cervicogenic MCCALLUM and occipital neuralgia Recommendation of JONATHAN ROUSE #4. Risks, benefits of procedure discussed and pt verbalized understanding. Protocol for discontinuation/ continuation of medications kannan procedure discussed. Reglan discontinued. May benefit from Scopolamine. Chronic and current use of high-risk medication (Opioids). The patient was counseled about risk of opioid use, psychological risk associated with opioids and was orally counseled to not overuse , divert or sell medications. Pt is to store medication in a safe location. The patient is counseled against driving while using narcotic medications and also not to use alcohol or any illicit recreational drugs. Patient verbalized understanding that the lack of compliance will result in failure to renew narcotic prescription(s) as well as possible discharge from the clinic Diagnoses, prognosis and treatment options including but not limited to physical therapy, surgical interventions, interventional therapies and medication management including narcotics and adjuvant medication were discussed. All patient questions answered . MAPS reviewed and it was appropriate. Refills of 30mg/2mL Toradol inj, 1cc 1/2" 28 ga needletip syringes, Zofran, Voltaren, Lidocaine 5% topical w 1 RF I have spent less than 30 minutes on patient care today. Dr Sung was avai lable by phone for the evaluation of this patient. The time was used to review the medical records including relevant urine studies and Prescription history (MAPs), review of the available imaging, evaluation and examination of the patient, coordination of care with the medical staff and if applicable referring physicians, as well as creation of the medical record - Pain Location Bilateral Upper Neck Non-Pharmacological Interventions: Heat, Ice, Inactivity, Physical Therapy, Position/Reposition Pharmacological Interventions: Block, Epidural, PRN Medication, Topical Medication PQRS Narrative: Smoking Status Never smoker Hx Alcohol Use (MH) No Home Medications: Ambulatory Orders Atomoxetine HCl [Strattera] 80 mg PO QAM 11/16/14 carBAMazepine [TEGretol] 200 mg PO 1200 11/16/14 carBAMazepine [TEGretol] 200 mg PO AC-BRKFST 11/16/14 fluvoxaMINE MALEATE [Luvox] 200 mg PO QAM 11/16/14 lamoTRIgine [LaMICtal] 100 mg PO BID 11/16/14 carBAMazepine [TEGretol] 100 mg PO HS 06/12/22 diazePAM [Diastat] 10 mg RECTAL ONCE PRN #2 kit 11/14/22 Aspirin 325 mg PO DIRECTED PRN 06/25/23 Naproxen Sodium [Aleve] 220 mg PO DIRECTED PRN 06/25/23 Multivitamins, Thera [Multivitamin (formulary)] 1 tab PO QAM 01/01/24 Divalproex Sodium 250 mg PO DAILY 03/16/24 Diclofenac Sodium Gel [Voltaren 1% Gel] 4 gm TOPICAL BID PRN 30 Days #100 gm 09/21/24 KETOROLAC (30 mg/mL) [TORADOL (30 mg/mL)] 30 mg IM BID PRN 30 Days #60 each 09/21/24 Lidocaine 5% Patch [Lidoderm 5% Patch] 1 each TP DAILY 30 Days #30 patch 09/21/24 Syringe and Needle,Insulin,1Ml [Insulin Syringe 28G 1/2" 1ML] 1 syr SQ DIRECTED 60 Days #60 each 09/21/24 Controlled Substance Measures - Controlled Substance Measures Is patient prescribed a controlled substance at discharge?: No
== END ==
LOC: PNWHC3 09:10
PROVIDERS: ATTEND Specialist
DX: M54.81 Occipital neuralgia (principal); G44.86 Cervicogenic headache; Z88.1 Allergy status to other antibiotic agents; Z88.5 Allergy status to narcotic agent; Z88.8 Allergy status to other drugs, medicaments and biological substances; Z88.0 Allergy status to penicillin
CPT/HCPCS: 99211

== ENCOUNTER → 2024-10-09 | Day surgery (SDC) | payer OTHER ==
[2024-10-06 15:26] VITALS: BMI 20.5
[~2024-10-09] MED LIST changes: +ROPIVACAINE 5MG/ML 20ML VIAL ONE; +methylPREDNISolone ACETATE 80 MG/ML 1 ML VIAL ONE
[2024-10-09 10:18] VITALS: RESP 16; TEMP 98.1
--- NOTE | 2024-10-09 10:52 | P.PCN ---
Date of Procedure: 10/09/24 Procedure(s) Performed: Preoperative diagnoses= 1- Greater occipital neuralgia. 2-cervicogenic headache Postoperative diagnoses= same as preoperative diagnosis. Procedure= Bilateral Greater occipital nerve block Anesthesia= none . Estimated blood loss=minimal. Procedure indication= the patient had a history of severe chronic neck pain ,and headache, diagnosed with occipital neuralgia exam was positive for severe tenderness over the occipital nerve bilaterally, she will be a good candidate occipital nerve block, patient failed conservative management Procedure description= the patient was seen and identified in the preoperative holding area, risks and benefits and alternative of the procedure and possible complications discussed with the patient, and he agreed with the preceding, patient signed the consent, and vital signs were monitored and were stable throughout the procedure, patient was placed in the sitting position or table and the neck area was prepped and draped with a sterile fashion, vital signs were closely monitored during the procedure, 25-gauge needle advanced 1 inch lateral to the occipital protuberance on the right side, at the location of the right occipital nerve , then after negative aspiration for heme and CSF and there was no paresthesia during the injection, 6 ml of Robivacaine 0.5% and 40 mg of Depo-Medrol injected after negative aspiration, the needle removed, and the entire same procedure was repeated for the left Greater occipital nerve. Patient tolerated the procedure well without any complication, The patient returned to supine position after the back was cleaned and a Band- Aid applied, the patient transported to recovery room in stable condition and he was monitored for 30 minutes before he was discharged home and then patient was reexamined before going home and patient was discharged in stable condition and patient will follow up with the pain clinic in a few weeks.
[2024-10-09 10:56] VITALS: BP 111/57; PULSE 88
== END ==
LOC: ORPAIN 09:45
PROVIDERS: ATTEND Specialist
DX: M54.81 Occipital neuralgia (principal); G44.86 Cervicogenic headache; I10 Essential (primary) hypertension; Z79.1 Long term (current) use of non-steroidal anti-inflammatories (NSAID); Z79.82 Long term (current) use of aspirin; Z88.0 Allergy status to penicillin; Z88.1 Allergy status to other antibiotic agents; Z88.5 Allergy status to narcotic agent; Z88.8 Allergy status to other drugs, medicaments and biological substances
CPT/HCPCS: 81025; 64405; J2795; J1010

== ENCOUNTER → 2024-11-16 | Outpatient (CLI) | payer OTHER ==
[2024-11-16 10:10] VITALS: BP 110/71; PULSE 94; RESP 16; TEMP 97.3
--- NOTE | 2024-11-16 15:40 | P.PAINPG ---
PQRS Measure Charge Sheet Comment: A 39 yr old female w mother/ caregiver at side with a history of severe and chronic neck pain secondary to radiculopathy, spondylosis with facet arthropathy without myelopathy, occipital neuralgia, cervicogenic MCCALLUM presents today for evaluation s/p BL NASIM #4. Pt states she experienced 85 % pain relief x 5 wks s/p procedure. Pt underwent a BL RFA of C2-C3/ C3-C4 in Apr-May 2024 where she experienced 90% pain relief x 6 mo s/p procedure. Pain level is provoked at 6 /10 in intensity, intermittent, localized in the upper cervical spine, predominantly axial, achy in character without shooting pain. Pain is provoked by sounds, bright lights, cold weather. Pain is alleviated with PT x 12-16 wks in Aug 2022, botox injections every 2 mo for MCCALLUM pain, physician guided home exercise 5 times weekly every morning since 2021, chiropractic treatments weekly since Summer 2023 which she is currently in, heat, medications, topical, laying in a darkened room and rest. Interventional pain procedures completed include BL RFA C2-C4 (Dec 2022, Jun 2023), BL NASIM x5 Patient is currently on Toradol, Topamax, Reglan, Fioricet, Aleve, ASA, Excedrin Migraine Patient denies any side effects of the medication(s), denies excessive drowsiness or sleepiness, denies suicidal ideation and reports that the current pain medication is helping to control the pain and improve activities of daily living. Patient denies any motor or sensory deficits. Patient denies any fever or night sweats, denies any change in the bowel movements or urination. Physical Examination: -Constitutional: Cooperative. Not in acute distress . - Neurologic: Cranial nerve II to XII intact. No focal neurological deficits. - Psychatric: Alert & oriented x 3. Matching mood & appropriate affect. Judgment and insight intact. - Musculoskeletal: Cervical spine: BL NASIM TTP Muscle bulk/ tone/ strength in the bilateral upper extremities normal Vertebral body tenderness to palpation over Spurling test positive Distraction test positive Facet loading test positive BL C2-C3, C3-C4 Thoracic spine Muscle bulk / tone/ strength in the bilateral paraspinal muscles normal Vertebral body tender to palpation over Facet loading test positive TTP Lumbar spine: Motor bulk/ tone/ strength lower extremities , thigh and legs : 5/5 Deep tendon reflexes : Normal Knee Jerk. Normal Ankle Jerk . Vertebral body tenderness to palpation over Lumbar Facet Loading Test positive Straight Leg Raise: positive at 30 degrees right side/ left side Gaenslen's Test positive Sacral spine : Severe tenderness over the Sacroiliac joint: right side / left side Range of motion: Flexion of the lumbar spine <60 degrees Range of motion: Extension of the lumbar spine <20 degrees Gaenslen's Test positive R / L Mariam test: positive right side / left side Thigh Thrust Test positive R / L Sacral Thrust Test positive R/ L Assessment and plan: Chronic neck pain secondary to cervicogenic MCCALLUM and occipital neuralgia Recommendation of BL RFA C2-C3/ C3-C4. Risks, benefits of procedure discussed and pt verbalized understanding. Protocol for discontinuation/ co ntinuation of medications kannan procedure discussed. Minimal anesthesia including Fentanyl and Versed if clinically indicated. Chronic and current use of high-risk medications. The patient was counseled about risk of use, psychological risk associated with medications and was orally counseled to not overuse , divert or sell medications. Pt is to store medication in a safe location. The patient is counseled against driving while using medications and also not to use alcohol or any illicit recreational drugs. Patient verbalized understanding that the lack of compliance will result in failure to renew narcotic prescription(s) as well as possible discharge from the clinic Diagnoses, prognosis and treatment options including but not limited to physical therapy, surgical interventions, interventional therapies and medication management including narcotics and adjuvant medication were discussed. All patient questions answered . MAPS reviewed and it was appropriate. Add Toradol 10mg PO #60 w 1 RF. Refills of 30mg/2mL Toradol inj, 1cc 1/2" 28 ga needletip syringes, Zofran, Voltaren, Lidocaine 5% topical w 1 RF I have spent less than 30 minutes on patient care today. Dr Sung was available by phone for the evaluation of this patient. The time was used to review the medical records including relevant urine studies and Prescription history (MAPs), review of the available imaging, evaluation and examination of the patient, coordination of care with the medical staff and if applicable referring physicians, as well as creation of the medical record - Pain Location Bilateral Upper Neck Non-Pharmacological Interventions: Chiropractic Treatment, Darkened Room, Heat, Ice, Inactivity, Massage, Physical Therapy, Position/Reposition Pharmacological Interventions: Block, PRN Medication, Topical Medication PQRS Narrative: Smoking Status Never smoker Hx Alcohol Use (MH) No Home Medications: Ambulatory Orders Atomoxetine HCl [Strattera] 80 mg PO QAM 11/16/14 carBAMazepine [TEGretol] 200 mg PO 1200 11/16/14 carBAMazepine [TEGretol] 200 mg PO AC-BRKFST 11/16/14 fluvoxaMINE MALEATE [Luvox] 200 mg PO QAM 11/16/14 lamoTRIgine [LaMICtal] 100 mg PO BID 11/16/14 carBAMazepine [TEGretol] 100 mg PO HS 06/12/22 diazePAM [Diastat] 10 mg RECTAL ONCE PRN #2 kit 11/14/22 Naproxen Sodium [Aleve] 220 mg PO DIRECTED PRN 06/25/23 Multivitamins, Thera [Multivitamin (formulary)] 1 tab PO QAM 01/01/24 Divalproex Sodium 250 mg PO DAILY 03/16/24 Ubrogepant [Ubrelvy] 50 mg PO DAILY 10/06/24 Diclofenac Sodium Gel [Voltaren 1% Gel] 4 gm TOPICAL BID PRN 30 Days #100 gm 11/16/24 KETOROLAC (30 mg/mL) [TORADOL (30 mg/mL)] 30 mg IM BID PRN 30 Days #60 each 11/16/24 Ketorolac [Toradol] 10 mg PO BID PRN 30 Days #60 tab 11/16/24 Lidocaine 5% Patch [Lidoderm 5% Patch] 1 each TOPICAL DAILY PRN 30 Days #30 patch 11/16/24 Controlled Substance Measures - Controlled Substance Measures Is patient prescribed a controlled substance at discharge?: No
== END ==
LOC: PNWHC3 09:06
PROVIDERS: ATTEND Specialist
DX: G89.29 Other chronic pain (principal); M54.2 Cervicalgia; M54.81 Occipital neuralgia; Z88.5 Allergy status to narcotic agent; Z88.1 Allergy status to other antibiotic agents; Z88.0 Allergy status to penicillin; Z88.8 Allergy status to other drugs, medicaments and biological substances
CPT/HCPCS: 99211

== ENCOUNTER 2024-12-01 08:43 | Day surgery (SDC) | payer OTHER ==
[2024-12-01] MEDS: LACTATED RINGERS 1,000 ML IV ONE (09:30)
[2024-12-01] MEDS ORDERED: LACTATED RINGERS 1,000 ML IV SCH (09:43)
[2024-12-01 09:50] VITALS: TEMP 98.8
[2024-12-01] MEDS ORDERED: ROPIVACAINE 5MG/ML 20ML VIAL ONE (10:21)
[2024-12-01] MEDS ORDERED: fentaNYL (PF) 50 MCG/ML 2 ML AMP ONE (10:21)
[2024-12-01] MEDS ORDERED: MIDAZOLAM 2 MG/2 ML VIAL ONE (10:21)
[2024-12-01] MEDS ORDERED: methylPREDNISolone ACETATE 80 MG/ML 1 ML VIAL ONE (10:21)
[2024-12-01] MEDS: IV FLUID CONTINUATION 1,000 ML IV ONE (10:44)
--- NOTE | 2024-12-01 10:59 | FL ---
Intraoperative/procedural fluoroscopic services were provided for RF cervical. Total fluoroscopy time is 6.2 seconds with a total of 3 submitted images to PACS. Total DAP [id number] mGym2. Please see the operative note for further details. [facility], , 12/01/2024 10:57 AM
--- NOTE | 2024-12-01 11:03 | P.PCN ---
Date of Procedure: 12/01/24 Procedure(s) Performed: PREOPERATIVE DIAGNOSIS: 1-Cervical spondylosis with Facet Arthropathy without myelopathy. 2-cervicogenic headache. 3-occipital neuralgia POSTOPERATIVE DIAGNOSIS: Same as preop diagnosis. PROCEDURES: Radiofrequency thermocoagulation Right C2 ,C3, C4. medial branch with Fluroscopy Guidence(fluoroscopy was available in Radiology department ) (to denervate the facet joint at Right C2-3 , C3- 4) ANESTHESIA: Sedation with Versed 2 mg and fentanyl 100 mcg, (sedation start time 10:21, end time 10:34 ). EBL: Minimal PROCEDURE INDICATION: The patient with neck pain secondary to cervical arthropathy who had more than 50% relief of her pain with previous diagnostic cervical medial branch block. PROCEDURE DESCRIPTION / TECHNIQUE: The patient was seen and identified in the preoperative area. Risks, benefits, complications, and alternatives were discussed with the patient, the patient agreed to proceed with the procedure and signed the consent. IV was started. Vital signs remained stable throughout the procedure. Patient was taken to the OR and time out was completed. The patient was placed in the prone position on the procedure table. A pillow was placed under the patients chest to increase the cervical interlaminar space. The cervical area was prepped and draped in the usual sterile fashion. Critical pause was taken. Vital signs were closely monitored during the procedure. Conscious sedation was used during the procedure to decrease patients anxiety. Using cross-table lateral fluoroscopy, the centroid of the trapezoid of Right C2 ,C3, C4 were identified, marked, and localized with 1% lidocaine. Subsequently, a 20 [id number] radiofrequency cannula with a 10-mm active tip was advanced guided by fluoroscopy to the centroid of the trapezoid of right C2 ,C3, C4, . Needle tip position was confirmed at the centroid of the trapezoids of Right C2 ,C3, C4 with anteroposterior fluoroscopy. Each site then underwent sensory testing at 50 Hz and 0 to 1 volt and motor testing at 2 Hz and 0 to 3 volt with local stimulation, but no radicular symptoms down the arm. Thereafter each sites underwent radiofrequency thermocoagulation at 80 degrees celsius for 90 seconds after injecting 0.5 ml of PF Ropivacaine 0.5 %. After thermocoagulation, 1 ml of the block solution containing Depo-Medrol 20 mg and 3 mL of preservative-free 0.5% Ropivacaine was injected at the Right C2 ,C3, C4, levels after negative aspiration of CSF and blood and with no paresthesias. Cannulas were retracted while injecting lidocaine 1% until the needle is out. Then after that the ,at the end the Skin was cleansed and bandages were applied. COMPLICATIONS: No acute complications. DISPOSITION / PLANS: The patient was placed in a supine position and transfe rred to the recovery area in a stable condition for observation and was discharged from the recovery room after meeting discharge criteria. Home discharge instructions given to the patient by the staff. The patient was reexamined prior to discharge. The patient will schedule a follow up in the clinic in 2-4 weeks.
[2024-12-01 11:05] VITALS: BP 125/79; PULSE 86; RESP 16
== END 2024-12-01 11:21 | disposition home or self-care (01) ==
LOC: ORPAIN 08:43
PROVIDERS: ATTEND Specialist
DX: M47.812 Spondylosis without myelopathy or radiculopathy, cervical region (principal); M54.81 Occipital neuralgia; Z88.5 Allergy status to narcotic agent; Z88.1 Allergy status to other antibiotic agents; Z88.0 Allergy status to penicillin
CPT/HCPCS: 81025; 64633; 64634; J2250; J3010; J2795; J1010; 99152

== ENCOUNTER → 2025-01-25 | Outpatient (CLI) | payer OTHER ==
[2025-01-25 12:43] VITALS: BP 109/72; PULSE 93; RESP 16; TEMP 97.5
--- NOTE | 2025-01-25 14:47 | P.PAINPG ---
PQRS Measure Charge Sheet Comment: A 39 yr old female w mother/ caregiver at side with a history of severe and chronic neck pain secondary to radiculopathy, spondylosis with facet arthropathy without myelopathy, occipital neuralgia, cervicogenic MCCALLUM presents today for evaluation s/p BL RFA C2-C3/ C3-C4. Pt states she experienced 95 % pain relief s/p procedure. Pain level is provoked at 3 /10 in intensity, intermittent, localized in the upper cervical spine, predominantly axial, achy in character without shooting pain. Pain is provoked by sounds, bright lights, cold weather. Pain is alleviated with PT x 12-16 wks in Aug 2022, botox injections every 2 mo for MCCALLUM pain, physician guided home exercise 5 times weekly every morning since 2021, chiropractic treatments weekly since Summer 2023 which she is currently in, heat, medications, topical, laying in a darkened room and rest. Interventional pain procedures completed include BL RFA C2-C4 x3 (Dec 2022, Jun 2023, Nov-Dec 2024), BL NASIM x5 Patient is currently on Toradol, Topamax, Reglan, Fioricet, Aleve, ASA, Excedrin Migraine Patient denies any side effects of the medication(s), denies excessive drowsiness or sleepiness, denies suicidal ideation and reports that the current pain medication is helping to control the pain and improve activities of daily living. Patient denies any motor or sensory deficits. Patient denies any fever or night sweats, denies any change in the bowel movements or urination. Physical Examination: -Constitutional: Cooperative. Not in acute distress . - Neurologic: Cranial nerve II to XII intact. No focal neurological deficits. - Psychatric: Alert & oriented x 3. Matching mood & appropriate affect. Judgment and insight intact. - Musculoskeletal: Cervical spine: BL NASIM TTP Muscle bulk/ tone/ strength in the bilateral upper extremities normal Vertebral body tenderness to palpation over Spurling test positive Distraction test positive Facet loading test positive BL C2-C3, C3-C4 Thoracic spine Muscle bulk / tone/ strength in the bilateral paraspinal muscles normal Vertebral body tender to palpation over Facet loading test positive TTP Lumbar spine: Motor bulk/ tone/ strength lower extremities , thigh and legs : 5/5 Deep tendon reflexes : Normal Knee Jerk. Normal Ankle Jerk . Vertebral body tenderness to palpation over Lumbar Facet Loading Test positive Straight Leg Raise: positive at 30 degrees right side/ left side Gaenslen's Test positive Sacral spine : Severe tenderness over the Sacroiliac joint: right side / left side Range of motion: Flexion of the lumbar spine <60 degrees Range of motion: Extension of the lumbar spine <20 degrees Gaenslen's Test positive R / L Mariam test: positive right side / left side Thigh Thrust Test positive R / L Sacral Thrust Test positive R/ L Assessment and plan: Chronic neck pain secondary to cervicogenic MCCALLUM and occipital neuralgia Chronic and current use of high-risk medications. The patient was counseled about risk of use, psychological risk associated with medications and was orally counseled to not overuse , divert or sell medications. Pt is to store medication in a safe location. The patient is counseled against driving while using medications and also not to use alcohol or any illicit recreational drugs. Patient verbalized understanding that the lack of compliance will result in failure to renew narcotic prescription(s) as well as possible discharge from the clinic Diagnoses, prognosis and treatment options including but not limited to physical therapy, surgical interventions, interventional therapies and medication management including narcotics and adjuvant medication were discussed. All patient questions answered . MAPS reviewed and it was appropriate. Add Toradol 10mg PO #60 w 1 RF. Refills of 30mg/2mL Toradol inj, 1cc 1/2" 28 ga needletip syringes, Zofran, Voltaren, Lidocaine 5% topical w 1 RF I have spent less than 30 minutes on patient care today. Dr Sung was available by phone for the evaluation of this patient. The time was used to review the medical records including relevant urine studies and Prescription history (MAPs), review of the available imaging, evaluation and examination of the patient, coordination of care with the medical staff and if applicable referring physicians, as well as creation of the medical record PQRS Narrative: Smoking Status Never smoker Hx Alcohol Use (MH) No Home Medications: Ambulatory Orders Atomoxetine HCl [Strattera] 80 mg PO QAM 11/16/14 carBAMazepine [TEGretol] 200 mg PO 1200 11/16/14 carBAMazepine [TEGretol] 200 mg PO AC-BRKFST 11/16/14 fluvoxaMINE MALEATE [Luvox] 200 mg PO QAM 11/16/14 lamoTRIgine [LaMICtal] 100 mg PO HS 11/16/14 carBAMazepine [TEGretol] 100 mg PO HS 06/12/22 diazePAM [Diastat] 10 mg RECTAL ONCE PRN #2 kit 11/14/22 Naproxen Sodium [Aleve] 220 mg PO DIRECTED PRN 06/25/23 Multivitamins, Thera [Multivitamin (formulary)] 1 tab PO QAM 01/01/24 Divalproex Sodium 250 mg PO DAILY 03/16/24 Ubrogepant [Ubrelvy] 50 mg PO DAILY 10/06/24 Cyclobenzaprine [Flexeril] 10 mg PO DIRECTED PRN 11/27/24 Aspirin 325 mg PO DAILY 12/15/24 Ibuprofen [Advil] 200 mg PO Q8HR PRN 12/15/24 lamoTRIgine [LaMICtal] 200 mg PO DAILY 12/15/24 Diclofenac Sodium Gel [Voltaren 1% Gel] 4 gm TOPICAL BID PRN 30 Days #100 gm 01/25/25 KETOROLAC (30 mg/mL) [TORADOL (30 mg/mL)] 30 mg IM BID PRN 30 Days #60 each 01/25/25 Ketorolac [Toradol] 10 mg PO BID PRN 30 Days #60 tab 01/25/25 Lidocaine 5% Patch [Lidoderm 5% Patch] 1 each TOPICAL DAILY PRN 30 Days #30 patch 01/25/25 Syringe and Needle,Insulin,1Ml [Insulin Syringe 28G 1/2" 1ML] 1 syr SQ DIRECTED 30 Days #60 each 01/25/25 Controlled Substance Measures - Controlled Substance Measures Is patient prescribed a controlled substance at discharge?: No
== END ==
LOC: PNWHC3 10:42
PROVIDERS: ATTEND Specialist
DX: G44.86 Cervicogenic headache (principal); G89.29 Other chronic pain; M54.81 Occipital neuralgia; Z79.899 Other long term (current) drug therapy; Z88.1 Allergy status to other antibiotic agents; Z88.5 Allergy status to narcotic agent; Z91.041 Radiographic dye allergy status; Z88.0 Allergy status to penicillin; Z88.8 Allergy status to other drugs, medicaments and biological substances
CPT/HCPCS: 99211

== ENCOUNTER → 2025-03-08 | Outpatient (CLI) | payer OTHER ==
[2025-03-08 11:12] VITALS: BP 110/72; PULSE 94; RESP 18; TEMP 98.2
--- NOTE | 2025-03-08 15:36 | XR ---
EXAMINATION TYPE: XR lumbar spine 3V DATE OF EXAM: 03/08/2025 12:13 PM COMPARISON: None CLINICAL INDICATION: Female, 39 years old with history of M54.16; [facility], pain FINDINGS: Cholecystectomy clips. Moderate stool burden. Small L1 ribs. Vertebral body heights are pre served and alignment is maintained. Mild facet arthropathy lower lumbar spine. . IMPRESSION: Mild facet arthropathy lower lumbar spine. Small L1 ribs. No vertebral compression collapse or malali gnment. [facility], Workstation: [facility] [place], 03/08/2025 3:34 PM
--- NOTE | 2025-03-08 16:37 | P.PAINPG ---
PQRS Measure Charge Sheet Comment: A 39 yr old female w history of cerebral palsy w mother/ caregiver at side with a history of severe and chronic neck and LBP secondary to radiculopathy, spondylosis with facet arthropathy without myelopathy, occipital neuralgia, cervicogenic MCCALLUM presents today for evaluation. Pain level is provoked at 2-3 /1 0 in intensity, intermittent, localized in the lumbar spine, predominantly axial, achy in character w occasional shooting pain down the LEs R> L. Pain is provoked by lifting. Pain is alleviated with PT x 12-16 wks (cerv) in Aug 2022, botox injections every 2 mo for MCCALLUM pain, chiropractic treatments on & off weekly since 8 wks of but most recent stent (lumbar) ended in Fall 2021, physician guided home exercise 5 times weekly (cerv, lumbar) every other morning since Fall 2021, chiropractic treatments weekly since Summer 2023 which she is currently in, heat, medications, topical, laying in a darkened room and rest. Interventional pain procedures completed include BL RFA C2-C4 x3 (Dec 2022, Jun 2023, Nov-Dec 2024), BL NASIM x5 Patient is currently on Toradol, Topamax, Reglan, Fioricet, Aleve, ASA, Excedrin Migraine Patient denies any side effects of the medication(s), denies excessive drowsiness or sleepiness, denies suicidal ideation and reports that the current pain medication is helping to control the pain and improve activities of daily living. Patient denies any motor or sensory deficits. Patient denies any fever or night sweats, denies any change in the bowel movements or urination. Physical Examination: -Constitutional: Cooperative. Not in acute distress . - Neurologic: Cranial nerve II to XII intact. No focal neurological deficits. - Psychatric: Alert & oriented x 3. Matching mood & appropriate affect. Judgment and insight intact. - Musculoskeletal: Cervical spine: BL NASIM TTP Muscle bulk/ tone/ strength in the bilateral upper extremities normal Vertebral body tenderness to palpation over Spurling test positive Distraction test positive Facet loading test positive BL C2-C3, C3-C4 Thoracic spine Muscle bulk / tone/ strength in the bilateral paraspinal muscles normal Vertebral body tender to palpation over Facet loading test positive TTP Lumbar spine: Motor bulk/ tone/ strength lower extremities , thigh and legs : 5/5 Deep tendon reflexes : Normal Knee Jerk. Normal Ankle Jerk . Vertebral body tenderness to palpation over Lumbar Facet Loading Test positive Straight Leg Raise: positive at 30 degrees right side/ left side Gaenslen's Test positive Sacral spine : Severe tenderness over the Sacroiliac joint: right side / left side Range of motion: Flexion of the lumbar spine <60 degrees Range of motion: Extension of the lumbar spine <20 degrees Gaenslen's Test positive R / L Mariam test: positive right side / left side Thigh Thrust Test positive R / L Sacral Thrust Test positive R/ L Assessment and plan: Chronic neck and LBP secondary to radiculopathy, spondylosis with facet arthropathy without myelopathy, cervicogenic MCCALLUM and occipital neuralgia Recommendation of lumbar x-ray M54.16. Would benefit from the use of thoracal lumbar support brace. Has been using Lidoderm 4% which has been minimally effective due to history of cerebral palsy and progressive postural changes. Am recommending Lidoderm 5% use at this time. Chronic and current use of high-risk medications. The patient was counseled about risk of use, psychological risk associated with medications and was orally counseled to not overuse , divert or sell medications. Pt is to store medication in a safe location. The patient is counseled against driving while using medications and also not to use alcohol or any illicit recreational drugs. Patient verbalized understanding that the lack of compliance will result in failure to renew narcotic prescription(s) as well as possible discharge from the clinic Diagnoses, prognosis and treatment options including but not limited to physical therapy, surgical interventions, interventional therapies and medication management including narcotics and adjuvant medication were discussed. All patient questions answered . MAPS reviewed and it was appropriate. Add Toradol 10mg PO #60 w 1 RF. Refills of 30mg/2mL Toradol inj, 1cc 1/2" 28 ga needletip syringes, Zofran, Voltaren, Lidocaine 5% topical w 1 RF I have spent less than 30 minutes on patient care today. Dr Sung was available by phone for the evaluation of this patient. The time was used to review the medical records including relevant urine studies and Prescription history (MAPs), review of the available imaging, evaluation and examination of the patient, coordination of care with the medical staff and if applicable referring physicians, as well as creation of the medical record - Pain Location Lower Back Non-Pharmacological Interventions: Heat Pharmacological Interventions: Topical Medication PQRS Narrative: Smoking Status Never smoker Hx Alcohol Use (MH) No Home Medications: Ambulatory Orders Atomoxetine HCl [Strattera] 80 mg PO QAM 11/16/14 carBAMazepine [TEGretol] 200 mg PO 1200 11/16/14 carBAMazepine [TEGretol] 200 mg PO AC-BRKFST 11/16/14 fluvoxaMINE MALEATE [Luvox] 200 mg PO QAM 11/16/14 lamoTRIgine [LaMICtal] 100 mg PO HS 11/16/14 carBAMazepine [TEGretol] 100 mg PO HS 06/12/22 diazePAM [Diastat] 10 mg RECTAL ONCE PRN #2 kit 11/14/22 Naproxen Sodium [Aleve] 220 mg PO DIRECTED PRN 06/25/23 Multivitamins, Thera [Multivitamin (formulary)] 1 tab PO QAM 01/01/24 Divalproex Sodium 250 mg PO DAILY 03/16/24 Ubrogepant [Ubrelvy] 50 mg PO DAILY 10/06/24 Cyclobenzaprine [Flexeril] 10 mg PO DIRECTED PRN 11/27/24 Aspirin 325 mg PO DAILY 12/15/24 Ibuprofen [Advil] 200 mg PO Q8HR PRN 12/15/24 lamoTRIgine [LaMICtal] 200 mg PO DAILY 12/15/24 Diclofenac Sodium Gel [Voltaren 1% Gel] 4 gm TOPICAL BID PRN 30 Days #100 gm 03/08/25 KETOROLAC (30 mg/mL) [TORADOL (30 mg/mL)] 30 mg IM BID PRN 30 Days #60 each 03/08/25 Ketorolac [Toradol] 10 mg PO BID PRN 30 Days #60 tab 03/08/25 Lidocaine 5% Patch [Lidoderm 5% Patch] 1 each TOPICAL DAILY PRN 30 Days #30 patch 03/08/25 Syringe and Needle,Insulin,1Ml [Insulin Syringe 28G 1/2" 1ML] 1 syr SQ DIRECTED 30 Days #60 each 03/08/25 Controlled Substance Measures - Controlled Substance Measures Is patient prescribed a controlled substance at discharge?: No
== END ==
LOC: PNWHC3 10:40
PROVIDERS: ATTEND Specialist
DX: M47.26 Other spondylosis with radiculopathy, lumbar region (principal); M54.2 Cervicalgia; G44.86 Cervicogenic headache; M54.81 Occipital neuralgia; Z88.0 Allergy status to penicillin; Z88.1 Allergy status to other antibiotic agents; Z88.5 Allergy status to narcotic agent; Z91.041 Radiographic dye allergy status; Z88.6 Allergy status to analgesic agent; Z88.8 Allergy status to other drugs, medicaments and biological substances; Z91.048 Other nonmedicinal substance allergy status
CPT/HCPCS: 72100; G0463; 99212

== ENCOUNTER → 2025-03-15 | Outpatient (CLI) | payer OTHER ==
--- NOTE | 2025-03-16 16:10 | MR ---
INDICATION: Patient age:Female; 39 years old; Reason for study: M54.16; [facility]. COMPARISONS: Lumbar spine radiograph 03/08/2025. TECHNIQUE: Multi planar, multi sequence imaging was performed utilizing: T1-weighted, T2-weighted, a nd turbo inversion recovery imaging of the lumbar spine. The patient was not given contrast. FINDINGS: The lumbar vertebral bodies do have preserved heights and alignment. There is disc desicc ation with height loss involving the L5-S1 disc. Remaining intervertebral discs demonstrate normal si gnal intensity and maintained heights. No abnormal STIR signal. The conus medullaris and the distal spinal cord do appear unremarkable with regards to their signal intensity and morphology. L1-L2: No significant disc pathology is identified. The spinal canal and neural foramen are patent. L2-L3: No significant disc pathology is identified. The spinal canal and neural foramen are patent. L3-L4: No significant disc pathology is identified. The spinal canal and neural foramen are patent. L4-L5: No significant disc pathology is identified. The spinal canal and neural foramen are patent. Enlargement of the bilateral facet joints. L5-S1: Broad-based disc bulge with minimal effacement of the anterior thecal sac. There is associated posterior annular fissure without disc herniation. No significant central canal stenosis. Enlargemen t of the bilateral facet joints. Mild bilateral neural foraminal stenosis. Other significant findings: None. IMPRESSION: 1. No definitive evidence for disc herniation or significant spinal canal stenosis. 2. Mild degenerative disc disease and osteoarthritic change at L5-S1. [facility], , 03/16/2025 4:08 PM
== END | disposition home or self-care (01) ==
LOC: RADMRIMAIN 15:07
PROVIDERS: ATTEND Specialist
DX: M51.16 Intervertebral disc disorders with radiculopathy, lumbar region (principal); M47.27 Other spondylosis with radiculopathy, lumbosacral region
CPT/HCPCS: 72148

== ENCOUNTER → 2025-03-22 | Outpatient (CLI) | payer OTHER ==
[2025-03-22 10:06] VITALS: BP 117/74; PULSE 99; RESP 16
--- NOTE | 2025-03-24 10:52 | P.PAINPG ---
PQRS Measure Charge Sheet Comment: A 39 yr old female w history of cerebral palsy w mother/ caregiver at side with a history of severe and chronic neck and LBP secondary to radiculopathy, spondylosis with facet arthropathy without myelopathy, occipital neuralgia, cervicogenic MCCALLUM presents today for evaluation. Pain level is provoked at 6 /10 in intensity, intermittent, localized in the lumbar spine, predominantly axial, achy in character w occasional shooting pain down the LEs R> L. Pain is provoked by lifting. Pain is alleviated with PT x 12-16 wks (cerv) in Aug 2022, botox injections every 2 mo for MCCALLUM pain, chiropractic treatments on & off weekly since 8 wks of but most recent stent (lumbar) ended in Fall 2021, physician guided home exercise 5 times weekly (cerv, lumbar) every other morning since Fall 2021, chiropractic treatments weekly since Summer 2023 which she is currently in, heat, medications, topical, laying in a darkened room and rest. Interventional pain procedures completed include BL RFA C2-C4 x3 (Dec 2022, Jun 2023, Nov-Dec 2024), BL NASIM x5 Patient is currently on Toradol, Topamax, Reglan, Fioricet, Aleve, ASA, Excedrin Migraine Patient denies any side effects of the medication(s), denies excessive drowsiness or sleepiness, denies suicidal ideation and reports that the current pain medication is helping to control the pain and improve activities of daily living. Patient denies any motor or sensory deficits. Patient denies any fever or night sweats, denies any change in the bowel movements or urination. Physical Examination: -Constitutional: Cooperative. Not in acute distress . - Neurologic: Cranial nerve II to XII intact. No focal neurological deficits. - Psychatric: Alert & oriented x 3. Matching mood & appropriate affect. Judgment and insight intact. - Musculoskeletal: Cervical spine: BL NASIM TTP Muscle bulk/ tone/ strength in the bilateral upper extremities normal Vertebral body tenderness to palpation over Spurling test positive Distraction test positive Facet loading test positive BL C2-C3, C3-C4 Thoracic spine Muscle bulk / tone/ strength in the bilateral paraspinal muscles normal Vertebral body tender to palpation over Facet loading test positive TTP Lumbar spine: Motor bulk/ tone/ strength lower extremities , thigh and legs : 5/5 Deep tendon reflexes : Normal Knee Jerk. Normal Ankle Jerk . Vertebral body tenderness to palpation over L5 Lumbar Facet Loading Test positive Straight Leg Raise: positive at 30 degrees right side/ left side Gaenslen's Test positive Sacral spine : Severe tenderness over the Sacroiliac joint: right side / left side Range of motion: Flexion of the lumbar spine <60 degrees Range of motion: Extension of the lumbar spine <20 degrees Gaenslen's Test positive R / L Mariam test: positive right side / left side Thigh Thrust Test positive R / L Sacral Thrust Test positive R/ L Imaging: MRI non contrast lumbar spine from 03/15/25 reviewed Assessment and plan: Chronic neck and LBP secondary to L5-S1 radiculopathy, spondylosis with facet arthropathy without myelopathy, cervicogenic CMCALLUM and occipital neuralgia Recommendation of LEI L5-S1 #1. Risk, benefits of procedure discussed and patient verbalized understanding. Benefitted from the use of thoracal lumbar support brace. Has been using Lidoderm 4% which has been minimally effective due to history of cerebral palsy and progressive postural changes. Am recommending Lidoderm 5% use at this time. Chronic and current use of high-risk medications. The patient was counseled about risk of use, psychological risk associated with medications and was orally counseled to not overuse , divert or sell medications. Pt is to store medication in a safe location. The patient is counseled against driving while using medications and also not to use alcohol or any illicit recreational drugs. Patient verbalized understanding that the lack of compliance will result in failure to renew narcotic prescription(s) as well as possible discharge from the clinic Diagnoses, prognosis and treatment options including but not limited to physical therapy, surgical interventions, interventional therapies and medication management including narcotics and adjuvant medication were discussed. All patient questions answered . MAPS reviewed and it was appropriate. Add Toradol 10mg PO #60 w 1 RF. Refills of 30mg/2mL Toradol inj, 1cc 1/2" 28 ga needletip syringes, Zofran, Voltaren, Lidocaine 5% topical w 1 RF I have spent less than 30 minutes on patient care today. Dr Sung was available by phone for the evaluation of this patient. The time was used to review the medical records including relevant urine studies and Prescription history (MAPs), review of the available imaging, evaluation and examination of the patient, coordination of care with the medical staff and if applicable referring physicians, as well as creation of the medical record - Pain Location Lower Back Non-Pharmacological Interventions: Heat Pharmacological Interventions: Medication, Topical Medication PQRS Narrative: Smoking Status Never smoker Hx Alcohol Use (MH) No Home Medications: Ambulatory Orders Atomoxetine HCl [Strattera] 80 mg PO QAM 11/16/14 carBAMazepine [TEGretol] 200 mg PO 1200 11/16/14 carBAMazepine [TEGretol] 200 mg PO AC-BRKFST 11/16/14 fluvoxaMINE MALEATE [Luvox] 200 mg PO QAM 11/16/14 lamoTRIgine [LaMICtal] 100 mg PO HS 11/16/14 carBAMazepine [TEGretol] 100 mg PO HS 06/12/22 diazePAM [Diastat] 10 mg RECTAL ONCE PRN #2 kit 11/14/22 Naproxen Sodium [Aleve] 220 mg PO DIRECTED PRN 06/25/23 Multivitamins, Thera [Multivitamin (formulary)] 1 tab PO QAM 01/01/24 Divalproex Sodium 250 mg PO DAILY 03/16/24 Ubrogepant [Ubrelvy] 50 mg PO DAILY 10/06/24 Cyclobenzaprine [Flexeril] 10 mg PO DIRECTED PRN 11/27/24 Aspirin 325 mg PO DAILY 12/15/24 Ibuprofen [Advil] 200 mg PO Q8HR PRN 12/15/24 lamoTRIgine [LaMICtal] 200 mg PO DAILY 12/15/24 Diclofenac Sodium Gel [Voltaren 1% Gel] 4 gm TOPICAL BID PRN 30 Days #100 gm 03/08/25 KETOROLAC (30 mg/mL) [TORADOL (30 mg/mL)] 30 mg IM BID PRN 30 Days #60 each 03/08/25 Ketorolac [Toradol] 10 mg PO BID PRN 30 Days #60 tab 03/08/25 Lidocaine 5% Patch [Lidoderm 5% Patch] 1 each TOPICAL DAILY PRN 30 Days #30 patch 03/08/25 Syringe and Needle,Insulin,1Ml [Insulin Syringe 28G 1/2" 1ML] 1 syr SQ DIRECTED 30 Days #60 each 03/08/25 Controlled Substance Measures - Controlled Substance Measures Is patient prescribed a controlled substance at discharge?: Yes When asked, does pt state using other controlled substances?: Yes If prescribed controlled substance>3 days was MAPS reviewed?: Prescribed <3 Days
== END ==
LOC: PNWHC3 09:36
PROVIDERS: ATTEND Specialist
DX: M47.27 Other spondylosis with radiculopathy, lumbosacral region (principal); Z88.5 Allergy status to narcotic agent; Z91.041 Radiographic dye allergy status; Z88.0 Allergy status to penicillin; Z88.3 Allergy status to other anti-infective agents; Z91.048 Other nonmedicinal substance allergy status; Z88.1 Allergy status to other antibiotic agents
CPT/HCPCS: 99212

== ENCOUNTER → 2025-04-21 | Outpatient (CLI) | payer OTHER ==
[2025-04-21 08:00] VITALS: BP 91/66; PULSE 68; RESP 20
--- NOTE | 2025-04-21 15:36 | P.PAINPG ---
PQRS Measure Charge Sheet Comment: A 39 yr old female w history of cerebral palsy w mother/ caregiver at side with a history of severe and chronic neck and LBP secondary to radiculopathy, spondylosis with facet arthropathy without myelopathy, occipital neuralgia, cervicogenic MCCALLUM presents today for evaluation s/p LEI L5-S1 #1. Pt states she ex perienced 60-65 % pain relief x 2 wks s/p procedure. Pain level is provoked at 6 /10 in intensity, intermittent, localized in the lumbar spine, predominantly axial, achy in character w occasional shooting pain down the LEs R> L. Pain is provoked by lifting. Pain is alleviated with PT x 12-16 wks (cerv) in Aug 2022, botox injections every 2 mo for MCCALLUM pain, chiropractic treatments on & off weekly since 8 wks of but most recent stent (lumbar) ended in Fall 2021, physician guided home exercise 5 times weekly (cerv, lumbar) every other morning since Fall 2021, chiropractic treatments weekly since Summer 2023 which she is currently in, heat, medications, topical, laying in a darkened room and rest. Interventional pain procedures completed include BL RFA C2-C4 x3 (Dec 2022, Jun 2023, Nov-Dec 2024), BL NASIM x5, LEI L5-S1 (03/28) Patient is currently on Toradol, Topamax, Reglan, Fioricet, Aleve, ASA, Excedrin Migraine Patient denies any side effects of the medication(s), denies excessive drowsiness or sleepiness, denies suicidal ideation and reports that the current pain medication is helping to control the pain and improve activities of daily living. Patient denies any motor or sensory deficits. Patient denies any fever or night sweats, denies any change in the bowel movements or urination. Physical Examination: -Constitutional: Cooperative. Not in acute distress . - Neurologic: Cranial nerve II to XII intact. No focal neurological deficits. - Psychatric: Alert & oriented x 3. Matching mood & appropriate affect. Judgment and insight intact. - Musculoskeletal: Cervical spine: BL NASIM TTP Muscle bulk/ tone/ strength in the bilateral upper extremities normal Vertebral body tenderness to palpation over Spurling test positive Distraction test positive Facet loading test positive BL C2-C3, C3-C4 Thoracic spine Muscle bulk / tone/ strength in the bilateral paraspinal muscles normal Vertebral body tender to palpation over Facet loading test positive TTP Lumbar spine: Motor bulk/ tone/ strength lower extremities , thigh and legs : 5/5 Deep tendon reflexes : Normal Knee Jerk. Normal Ankle Jerk . Vertebral body tenderness to palpation over L5 Santana test positive BL L5-S1 Lumbar Facet Loading Test positive Straight Leg Raise: positive at 30 degrees right side/ left side Gaenslen's Test positive Sacral spine : Severe tenderness over the Sacroiliac joint: right side / left side Range of motion: Flexion of the lumbar spine <60 degrees Range of motion: Extension of the lumbar spine <20 degrees Gaenslen's Test positive R / L Mariam test: positive right side / left side Thigh Thrust Test positive R / L Sacral Thrust Test positive R/ L Imaging: MRI non contrast lumbar spine from 03/15/25 reviewed Assessment and plan: Chronic neck and LBP secondary to L5-S1 radiculopathy, spondylosis with facet arthropathy without myelopathy, cervicogenic MCCALLUM and occipital neuralgia Recommendation of BL TFESI L5-S1 #1. Risk, benefits of procedure discussed and patient verbalized understanding. Benefitted from the use of thoracal lumbar support brace. Has been using Lidoderm 4% which has been minimally effective due to history of cerebral palsy and progressive postural changes. Lidoderm 5% not covered, so pt has been using Lidoderm 4% OTC which is not effective. Chronic and current use of high-risk medications. The patient was counseled about risk of use, psychological risk associated with medications and was orally counseled to not overuse , divert or sell medications. Pt is to store medication in a safe location. The patient is counseled against driving while using medications and also not to use alcohol or any illicit recreational drugs. Patient verbalized understanding that the lack of compliance will result in failure to renew narcotic prescription(s) as well as possible discharge from the clinic Diagnoses, prognosis and treatment options including but not limited to physical therapy, surgical interventions, interventional therapies and medication management including narcotics and adjuvant medication were discussed. All patient questions answered . MAPS reviewed and it was appropriate. Continue Toradol 10mg PO #60 w 1 RF. Ample supply of 30mg/2mL Toradol inj, Zofran, Voltaren, Lidocaine 5% topical w 1 RF. Script for 1cc 11/05" 28 ga needletip syringes provided. I have spent less than 30 minutes on patient care today. Dr Sung was available by phone for the evaluation of this patient. The time was used to review the medical records including relevant urine studies and Prescription history (MAPs), review of the available imaging, evaluation and examination of the patient, coordination of care with the medical staff and if applicable [facility], as well as creation of the medical record - Pain Location Lower Back Non-Pharmacological Interventions: Heat, Stretching Pharmacological Interventions: Medication PQRS Narrative: Smoking Status Never smoker Hx Alcohol Use (MH) No Home Medications: Ambulatory Orders Atomoxetine HCl [Strattera] 80 mg PO QAM 11/16/14 carBAMazepine [TEGretol] 200 mg PO 1200 11/16/14 carBAMazepine [TEGretol] 200 mg PO AC-BRKFST 11/16/14 fluvoxaMINE MALEATE [Luvox] 200 mg PO QAM 11/16/14 lamoTRIgine [LaMICtal] 100 mg PO HS 11/16/14 carBAMazepine [TEGretol] 100 mg PO HS 06/12/22 diazePAM [Diastat] 10 mg RECTAL ONCE PRN #2 kit 11/14/22 Naproxen Sodium [Aleve] 220 mg PO DIRECTED PRN 06/25/23 Multivitamins, Thera [Multivitamin (formulary)] 1 tab PO QAM 01/01/24 Divalproex Sodium 250 mg PO DAILY 03/16/24 Ubrogepant [Ubrelvy] 50 mg PO DAILY PRN 10/06/24 Cyclobenzaprine [Flexeril] 10 mg PO DIRECTED PRN 11/27/24 Aspirin 325 mg PO DAILY 12/15/24 Ibuprofen [Advil] 200 mg PO Q8HR PRN 12/15/24 lamoTRIgine [LaMICtal] 200 mg PO DAILY 12/15/24 Diclofenac Sodium Gel [Voltaren 1% Gel] 4 gm TOPICAL BID PRN 30 Days #100 gm 03/08/25 KETOROLAC (30 mg/mL) [TORADOL (30 mg/mL)] 30 mg IM BID PRN 30 Days #60 each 03/08/25 Ketorolac [Toradol] 10 mg PO BID PRN 30 Days #60 tab 03/08/25 Lidocaine 5% Patch [Lidoderm 5% Patch] 1 each TOPICAL DAILY PRN 30 Days #30 patch 03/08/25 Syringe and Needle,Insulin,1Ml [Insulin Syringe 28G 11/05" 1ML] 1 syr SQ DIRECTED 30 Days #60 each 03/08/25 diazePAM [Valium] 10 mg PO DAILY 1 Days #1 tab 04/21/25 Controlled Substance Measures - Controlled Substance Measures Is patient prescribed a controlled substance at discharge?: Yes When asked, does pt state using other controlled substances?: Yes If prescribed controlled substance>3 days was MAPS reviewed?: Prescribed <3 Days
== END ==
LOC: PNWHC3 07:30
PROVIDERS: ATTEND Specialist
DX: M47.27 Other spondylosis with radiculopathy, lumbosacral region (principal); G44.86 Cervicogenic headache; M54.81 Occipital neuralgia; Z88.5 Allergy status to narcotic agent; Z88.0 Allergy status to penicillin; Z88.1 Allergy status to other antibiotic agents; Z88.8 Allergy status to other drugs, medicaments and biological substances; Z91.048 Other nonmedicinal substance allergy status
CPT/HCPCS: 99212

== ENCOUNTER 2025-05-04 05:58 | Day surgery (SDC) | payer OTHER ==
[2025-05-03 12:55] VITALS: BMI 24.4
[2025-05-04 06:29] VITALS: TEMP 99.2
[2025-05-04] MEDS: diphenhydrAMINE 50 MG/ML 1 ML VIAL IVP STA (07:01)
[2025-05-04] MEDS: IV FLUID CONTINUATION 1,000 ML IV ONE (07:02)
[2025-05-04] MEDS: LACTATED RINGERS 1,000 ML IV SCH (07:03)
[2025-05-04] MEDS ORDERED: DEXAMETHASONE SOD PHOSPHATE 10 MG/ML 1 ML VIAL ONE (07:14)
[2025-05-04] MEDS ORDERED: IOPAMIDOL M200 10 ML VIAL ONE (07:14)
[2025-05-04] MEDS: IV FLUID CONTINUATION 700 ML IV ONE (07:48)
--- NOTE | 2025-05-04 07:53 | P.PCN ---
Description of Procedure: PREOPERATIVE DIAGNOSIS: 1-Lumbar radiculopathy . 2-lumbar degenerative disc disease. 3-lumbar spondylosis with lumbar facet arthropathy without myelopathy POSTOPERATIVE DIAGNOSIS: 1-lumbar radiculopathy. 2-lumbar degenerative disc disease. 3-lumbar spondylosis with facet arthropathy without myelopathy PROCEDURE 1. Transforaminal epidural steroid injection under fluoroscopic guidance at BILATERAL L5-S1 level. (Fluoroscopy images stored on file in the radiology Department ) 2. Lumbar epidurogram . ANESTHESIA: Local with 1% lidocaine 5 ml. subcutaneously. Continuous pulse ox, EKG, blood pressure and verbal communication was maintained with the patient. EBL: Minimal PROCEDURE INDICATION: The patient with low back pain and radiculopathy symptoms unresponsive to conservative treatment. The patient was seen and identified in the preoperative area. Risks, benefits, complications, and alternatives were discussed with the patient. The patient agreed to proceed with the procedure and signed the consent. IV was started, and vital signs were stable. According to patient's mother, IV contrast was tolerated by patient's without any reaction. In preop area, Benadryl 25 mg IV and hydrocortisone 100 mg IV was given as prophylaxis. PROCEDURE DESCRIPTION / TECHNIQUE: After getting consent, patient was taken to the OR and time out was completed. The patient was placed in the prone position on procedure table and a pillow was placed under the abdomen to reduce lumbar lordosis. The lumbosacral area was prepped and draped in the usual sterile fashion. Critical pause was taken. After injecting 10 mL of plain 1% lidocaine subcutaneously, under oblique view of the fluoroscope, a 22-gauge spinal needle was introduced under the tunnel view of the fluoroscope on the RIGHT side and the needle was advanced so that the tip of the needle was at the posterior inferior quadrant of the intervertebral foramen at the lateral view of the fluoroscope and in the lateral third of the facet column in the AP view of the fluoroscope. Negative CSF, negative blood, negative paresthesia. After needle position confirmation by AP and cross table lateral view, 2 mL of Isovue-M 200 contrast was injected under continuous fluoroscope. No contrast was noted in the intrathecal or intravascular space. The epidurogram was noted. Again after repeated negative aspiration 2.5 mL solution was injected which consists 1 mL of normal saline mixed with 1.5 mL of 15 mg dexamethasone. Needle was removed . Same procedure was repeated at the LEFT side at same level , using contrast under continuous fluoroscopy and using same amount of dexamethasone. At the end of the procedure, skin was cleansed, and bandages were applied. DISPOSITION / PLANS: No complication. The patient tolerated the procedure well. The patient was placed in a supine position and transferred to the recovery area in a stable condition for observation. There was no evidence of lower extremity motor or sensory deficit after the procedure. Patient was discharged from the recovery room after meeting discharge criteria. Home discharge instructions were given to the patient by the staff. The patient was reexamined prior to discharge.
[2025-05-04 07:54] VITALS: RESP 18
[2025-05-04 08:22] VITALS: PULSE 78
[2025-05-04 08:24] VITALS: BP 100/62
--- NOTE | 2025-05-04 11:25 | FL ---
EXAMINATION TYPE: FL guided pain mgmt statistic Intraoperative/procedural fluoroscopic services were provided. CLINICAL INDICATION:Female, 39 years old with history of TRANSFORAMINAL; , [facility] FINDINGS: Fluoroscopic images demonstrate lumbar transforaminal injection. No radiographic evidence for complic ation. Total fluoroscopy time is 91.4 seconds. DAP: [id number] mGym2 Please see the operative/procedural note for further details. [facility], , 05/04/2025 11:23 AM
== END 2025-05-04 09:00 ==
LOC: ORPAIN 05:58
PROVIDERS: ATTEND Pain Medicine Interventional Pain Medicine
DX: M47.26 Other spondylosis with radiculopathy, lumbar region (principal); M51.16 Intervertebral disc disorders with radiculopathy, lumbar region; Z88.0 Allergy status to penicillin; Z88.8 Allergy status to other drugs, medicaments and biological substances; Z88.1 Allergy status to other antibiotic agents; Z88.5 Allergy status to narcotic agent
CPT/HCPCS: 81025; 64483; J1200; J1100; Q9966

== ENCOUNTER → 2025-05-24 | Outpatient (CLI) | payer OTHER ==
[2025-05-24 09:49] VITALS: BP 96/66; PULSE 88; RESP 19
--- NOTE | 2025-05-24 16:41 | P.PAINPG ---
PQRS Measure Charge Sheet Comment: A 39 yr old female w history of cerebral palsy w mother/ caregiver at side with a history of severe and chronic neck and LBP secondary to radiculopathy, spondylosis with facet arthropathy without myelopathy, occipital neuralgia, cervicogenic MCCALLUM presents today for evaluation s/p BL TFESI L5-S1 #1. Pt states s he experienced >50% pain relief x 2 wks s/p procedure. Pain level is provoked at 6 /10 in intensity, intermittent, localized in the lumbar spine, predominantly axial, achy in character w occasional shooting pain down the LEs R> L. Pain is provoked by lifting. Pain is alleviated with PT x 12-16 wks (cerv) in Aug 2022, botox injections every 2 mo for MCCALLUM pain, chiropractic treatments on & off weekly since 8 wks of but most recent stent (lumbar) ended in May 2025, physician guided home exercise 5 times weekly (cerv, lumbar) every other morning since Fall 2021, chiropractic treatments weekly since Summer 2023 which she is currently in, heat, medications, topical, laying in a darkened room and rest. Pt stated she was feeling more limber, had improved range of motion and less pain when seeing the chiropractor routinely until sessions ended in May 2025. Pt would benefit from returning to the chiropractor to attain her strength, ROM, muscle tone & bulk goals. Interventional pain procedures completed include BL RFA C2-C4 x3 (Dec 2022, Jun 2023, Nov-Dec 2024), BL NASIM x5, LEI L5-S1 (03/28), BL TFESI L5-S1 x1 (05/28) Patient is currently on Toradol, Topamax, Reglan, Fioricet, Aleve, ASA, Excedrin Migraine Patient denies any side effects of the medication(s), denies excessive drowsiness or sleepiness, denies suicidal ideation and reports that the current pain medication is helping to control the pain and improve activities of daily living. Patient denies any motor or sensory deficits. Patient denies any fever or night sweats, denies any change in the bowel movements or urination. Physical Examination: -Constitutional: Cooperative. Not in acute distress . - Neurologic: Cranial nerve II to XII intact. No focal neurological deficits. - Psychatric: Alert & oriented x 3. Matching mood & appropriate affect. Judgment and insight intact. - Musculoskeletal: Cervical spine: BL NASIM TTP Muscle bulk/ tone/ strength in the bilateral upper extremities normal Vertebral body tenderness to palpation over Spurling test positive Distraction test positive Facet loading test positive BL C2-C3, C3-C4 Thoracic spine Muscle bulk / tone/ strength in the bilateral paraspinal muscles normal Vertebral body tender to palpation over Facet loading test positive TTP Lumbar spine: Motor bulk/ tone/ strength lower extremities , thigh and legs : 5/5 Deep tendon reflexes : Normal Knee Jerk. Normal Ankle Jerk . Vertebral body tenderness to palpation over L5 Santana test positive BL L5-S1 Lumbar Facet Loading Test positive Straight Leg Raise: positive at 30 degrees right side/ left side Gaenslen's Test positive Sacral spine : Severe tenderness over the Sacroiliac joint: right side / left side Range of motion: Flexion of the lumbar spine <60 degrees Range of motion: Extension of the lumbar spine <20 degrees Gaenslen's Test positive R / L Mariam test: positive right side / left side Thigh Thrust Test positive R / L Sacral Thrust Test positive R/ L Imaging: MRI non contrast lumbar spine from 03/15/25 reviewed Assessment and plan: Chronic neck and LBP secondary to L5-S1 radiculopathy, spondylosis with facet arthropathy without myelopathy, cervicogenic MCCALLUM and occipital neuralgia Recommendation of medication management, PT x 6 wks and continuing chiropratic treatments M54.16. May follow w an orthopedic surgeon to explore additional treatment options. Benefitted from the use of thoracal lumbar support brace. Has been using Lidoderm 4% which has been minimally effective due to history of cerebral palsy and progressive postural changes. Lidoderm 5% not covered, so pt has been using Lidoderm 4% OTC which is not effective. Chronic and current use of high-risk medications. The patient was counseled about risk of use, psychological risk associa ragini with medications and was orally counseled to not overuse , divert or sell medications. Pt is to store medication in a safe location. The patient is counseled against driving while using medications and also not to use alcohol or any illicit recreational drugs. Patient verbalized understanding that the lack of compliance will result in failure to renew narcotic prescription(s) as well as possible discharge from the clinic Diagnoses, prognosis and treatment options including but not limited to physical therapy, surgical interventions, interventional therapies and medication management including narcotics and adjuvant medication were discussed. All patient questions answered . MAPS reviewed and it was appropriate. Continue Toradol 10mg PO #60 w 1 RF. Ample supply of 30mg/2mL Toradol inj, Zofran, Voltaren, Lidocaine 5% topical w 1 RF. Script for 1cc 11/05" 28 ga needletip syringes provided. I have spent less than 30 minutes on patient care today. Dr Sung was available by phone for the evaluation of this patient. The time was used to review the medical records including relevant urine studies and Prescription history (MAPs), review of the available imaging, evaluation and examination of the patient, coordination of care with the medical staff and if applicable referring physicians, as well as creation of the medical record - Pain Location Lower Back Non-Pharmacological Interventions: Heat, Ice Pharmacological Interventions: Medication, Topical Medication PQRS Narrative: Smoking Status Never smoker Hx Alcohol Use (MH) No Home Medications: Ambulatory Orders Atomoxetine HCl [Strattera] 80 mg PO QAM 11/16/14 carBAMazepine [TEGretol] 200 mg PO 1200 11/16/14 carBAMazepine [TEGretol] 200 mg PO AC-BRKFST 11/16/14 fluvoxaMINE MALEATE [Luvox] 200 mg PO QAM 11/16/14 lamoTRIgine [LaMICtal] 100 mg PO HS 11/16/14 carBAMazepine [TEGretol] 100 mg PO HS 06/12/22 Naproxen Sodium [Aleve] 220 mg PO DIRECTED PRN 06/25/23 Multivitamins, Thera [Multivitamin (formulary)] 1 tab PO QAM 01/01/24 Divalproex Sodium 250 mg PO DAILY 03/16/24 Ubrogepant [Ubrelvy] 50 mg PO DAILY PRN 10/06/24 Cyclobenzaprine [Flexeril] 10 mg PO DIRECTED PRN 11/27/24 Aspirin 325 mg PO DAILY 12/15/24 Ibuprofen [Advil] 200 mg PO Q8HR PRN 12/15/24 lamoTRIgine [LaMICtal] 200 mg PO DAILY 12/15/24 KETOROLAC (30 mg/mL) [TORADOL (30 mg/mL)] 30 mg IM BID PRN 30 Days #60 each 03/08/25 Lidocaine 5% Patch [Lidoderm 5% Patch] 1 each TOPICAL DAILY PRN 30 Days #30 patch 03/08/25 Syringe and Needle,Insulin,1Ml [Insulin Syringe 28G 1/2" 1ML] 1 syr SQ DIRECTED 30 Days #60 each 03/08/25 diazePAM [Valium] 10 mg PO DAILY 1 Days #1 tab 04/21/25 Diclofenac Sodium Gel [Voltaren 1% Gel] 4 gm TOPICAL BID PRN 30 Days #100 gm 05/24/25 Ketorolac [Toradol] 10 mg PO BID PRN 30 Days #60 tab 05/24/25 Controlled Substance Measures - Controlled Substance Measures Is patient prescribed a controlled substance at discharge?: No
== END ==
LOC: PNWHC3 08:45
PROVIDERS: ATTEND Specialist
DX: M47.27 Other spondylosis with radiculopathy, lumbosacral region (principal); Z88.0 Allergy status to penicillin; Z88.1 Allergy status to other antibiotic agents; Z88.5 Allergy status to narcotic agent; Z91.041 Radiographic dye allergy status; Z91.048 Other nonmedicinal substance allergy status
CPT/HCPCS: 99212